=== PATIENT | female | born 1970 | race Caucasian/White ===

== ENCOUNTER 2022-12-15 07:07 | Outpatient (OUT) | payer BC, SELFPAY ==
[2022-12-15 08:33] LABS: Free T3 2.31 pg/mL (2.18-3.98); Glucose 85 mg/dL (74-106); Thyroid Stimulating Hormone 1.987 uIU/mL (0.358-3.740)
[2022-12-15 08:37] LABS: Estimated Average Glucose 91 mg/dL; Glycohemoglobin A1C 4.8 % (4.5-6.2)
[2022-12-15 12:33] LABS: Free T4 0.95 ng/dL (0.76-1.46)
[2022-12-16 04:07] LABS: Estradiol 35.8 pg/mL (.); Progesterone 0.2 ng/mL (.); Sex Horm Binding Glob, Serum 67.5 nmol/L (17.3-125.0)
[2022-12-16 11:09] LABS: C-Peptide, Serum 1.4 ng/mL (1.1-4.4)
[2022-12-16 15:07] LABS: Thyroglobulin Antibody <1.0 IU/mL (0.0-0.9); Thyroid Peroxidase (TPO) Ab <9 IU/mL (0-34)
[2022-12-17 15:10] LABS: Estrone, Serum 172 pg/mL (.)
[2022-12-18 07:09] LABS: Serotonin, Serum 7 ng/mL (31-207)
[2022-12-20 04:06] LABS: Free Testosterone(Direct) 3.3 pg/mL (0.0-4.2); Testosterone 34 ng/dL (4-50)
[2022-12-21 18:07] LABS: Cortisol, Free Dialysis, LCMS 1.11 ug/dL (.)
[2022-12-23 02:10] LABS: Reverse T3, Serum 17.3 ng/dL (9.2-24.1)
== END 2022-12-15 07:08 | disposition home or self-care (01) ==
LOC: LAB 07:11
PROVIDERS: PCP Family Medicine; Visit Provider Obstetrics & Gynecology
DX: E34.9 Endocrine disorder, unspecified (principal)
CPT/HCPCS: 36415; 82306; 82530; 82627; 82670; 82679; 82728; 82947; 83036; 83525; 84144; 84260; 84270; 84402; 84403; 84436; 84439; 84443; 84481; 84482; 84681; 86376; 86800

== ENCOUNTER 2022-12-27 07:34 | Outpatient (OUT) | payer BC, SELFPAY ==
--- NOTE | 2022-12-27 07:37 | MM_ITS ---
Patient Name: EFRAIN GEORGE MR#: [id number] : 1970 Exam Date: 12/27/2022 Ordering Doctor: DR Randy Martins . RADIOLOGY REPORT PROCEDURE: MM TOMOSYNTHESIS SCREENING BI COMPARISON: MG MAMM SCREEN 3D LETITIA CAD, 12/23/2021. MG MAMM SCREEN 3D LETITIA CAD, 12/17/2020. MG MAMM SCREEN LETITIA W CAD, 12/07/2019. MG MAMM LETITIA SCRN W CAD DIG, 01/05/2008. INDICATIONS: Screening Calculator Name NCI Breast Cancer Risk Assessment Tool 5 Year Breast Cancer Risk 1.10% Lifetime Breast Cancer Risk 9.90% Personal Breast Cancer No Personal Ovarian Cancer No Treatments None Family Cancers None LOCATION: [facility] BREAST COMPOSITION: Heterogeneously dense,which may obscure small masses. FINDINGS: DIAGNOSTIC CATEGORY 1--NEGATIVE. RIGHT BREAST: No significant suspicious finding. No significant change has occurred. LEFT BREAST: No significant suspicious finding. No significant change has occurred. RECOMMENDATIONS: ROUTINE MAMMOGRAM AND CLINICAL EVALUATION IN 12 MONTHS. PLEASE NOTE: A NORMAL MAMMOGRAM DOES NOT EXCLUDE THE POSSIBILITY OF BREAST CANCER. A CLINICALLY SUSPICIOUS PALPABLE LUMP SHOULD BE BIOPSIED. Dictated by: Jack Delatorre M.D. on 12/28/2022 at 11:23 Approved by: Jack Delatorre M.D. on 12/28/2022 at 11:26
--- OUTSIDE RECORDS SUMMARY | 2023-02-01 17:34 | XMS_ITS | CCD ---
Author Name Unknown Address [address] [facility] [address] [place] [address] Organization [facility] Care Team Providers Care Games Dealer Name Role Phone FRANCHESKA Unavailable Unavailable ELEN ., DR TREVINO Admitting Unavailable ELEN ., DR TREVINO Attending Unavailable SOUMYA, DR CADET Primary Care Unavailable ELEN ., DR TREVINO Consulting Unavailable ELEN ., DR TREVINO Admitting Unavailable ELEN ., DR TREVINO Attending Unavailable [place], DR TRESA Anand Consulting Unavailable SOUMYA, DR CADET Primary Care Unavailable ELEN ., DR TREVINO Consulting Unavailable ELEN ., DR TREVINO Consulting Unavailable ELEN ., DR TREVINO Admitting Unavailable SOUMYA, DR CADET Primary Care Unavailable ELEN ., DR TREVINO Attending Unavailable Allergies Allergy Classification Reported Allergen(s) Allergy Type Date of Onset Reaction(s) Facility (1 source) Sulfonamides (Antibiotic); Translations: [SULFA (SULFONAMIDE ANTIBIOTICS)] Propensity to adverse reactions to drug (disorder) [address] [facility] Other [place] [facility] (1 source) Sulfonamides (Antibiotic) Drug allergy (disorder) 4 [facility] Repository Problems Active Problems Problem Classification Problem Date Documented Date Episodic/Chronic Cancer of other female genital organs (1 source) Atypical squamous cells of undetermined significance on cytologic smear of vagina (ASC-US); Translations: [Atypical squamous cells of undetermined significance on cytologic smear of vagina (ASC-US)] Onset: 01-25-2018 Episodic Immunizations and screening for infectious disease (1 source) Encounter for screening for human papillomavirus (HPV); Translations: [ENC SCREENING HUMAN PAPILLOMAVIRUS] Onset: 03-23-2022 Episodic Other screening for suspected conditions (not mental disorders or infectious disease) (8 sources) Encounter for screening for malignant neoplasm of cervix; Translations: [Encounter for screening mammogram for malignant neoplasm of breast] Onset: 12-23-2021 Episodic Sexually transmitted infections (not HIV or hepatitis) (1 source) Vaginal high risk human papillomavirus (HPV) DNA test positive; Translations: [Vaginal high risk human papillomavirus (HPV) DNA test positive] Onset: 01-25-2018 Episodic Past or Other Problems Problem Classification Problem Date Documented Da te Episodic/Chronic Malaise and fatigue (4 sources) Other fatigue; Translations: [OTHER FATIGUE] Onset: 07-16-2021 Episodic Results Test Name Value Interpretation Reference Range Facil ity PAP ACOG PANEL 2: 30 to 65on 03-29-2022 . . Normal [facility]spital Comment on above: Result Comment: Perf ormed at: WB Performed By: #### C BC #### [facility] [address] [address] [address] David Cutler Age Gdln ACOG Testing 30-65 Normal [facility] Comment on above: Performed By: #### C BC #### [facility] [address] [address] [address] David Cutler DIAGNOSIS: Comment Normal [facility] Comment on above: Result Comment: NEGA TIVE FOR INTRAEPITHELIAL LESION OR MALIGNANCY. Performed at: WB Performed By: #### C BC #### [facility] [address] [address] [address] David Cutler HPV Aptima Negative Normal Negative [facility] Comment on above: Result Comment: This nucleic acid amplification test detects fourteen high-risk HPV types (16,18,31,33,35,39,45,51,52,56,58,59,66,68) without differentiation. Performed at: =G Performed By: #### C BC #### [facility] [id number] David Cutler HPV Genotype Reflex Comment Normal [facility] Comment on above: Result Comment: Crit eria not met, HPV Genotype not performed. Performed at: WB Performed By: #### C BC #### [facility] [address] [address] [address] David Cutler Methodology: Comment Normal [facility] Comment on above: Result Comment: This liquid based ThinPrep(R) pap test was screened with the use of an image guided system. Performed at: WB Performed By: #### C BC #### [facility] [address] [address] [address] David Cutler Note: Comment Normal [facility] Comment on above: Result Comment: The Pap smear is a screening test designed to aid in the detection of premalignant and malignant conditions of the uterine cervix. It is not a diagnostic procedure and should not be used as the sole means of detecting cervical cancer. Both false-positive and false-negative reports do occur. . Performed at: WB Performed By: #### C BC #### [facility] [address] [address] [address] David Cutler Performed by: Comment Normal [facility] Comment on above: Result Comment: Mayte Deluna, Yard Driver (ASCP) Performed at: WB Performed By: #### C BC #### [facility] [address] [address] [address] David Cutler Specimen adequacy: Comment Normal [facility] Comment on above: Result Comment: Sati sfactory for evaluation. No endocervical component is identified. Performed at: WB Performed By: #### C BC #### [facility] [address] [place] [address] Dr. David Cutler MG MAMM SCREEN 3D LETITIA CADon 12-23-2021 MG MAMM SCREEN 3D LETITIA CAD Patient: MILDRED LUJAN Exam Date: 12/23/2021 : 1970 Gender:F Ordering : DR URIEL MARTINS . Admission #: [id number] Family : Order #: [id number] CLICK HERE TO VIEW EXAM RADIOLOGY REPORT PROCEDURE: MAMMOGRAM SCREENING 3D BILATERAL CAD COMPARISON: MG MAMM SCREEN LETITIA W CAD, 12/07/2019. MG MAMM SCREEN 3D LETITIA CAD, 12/17/2020. INDICATIONS: Screening mammography Calculator Name NCI Breast Cancer Risk Assessment Tool 5 Year Breast Cancer Risk 1.00% Lifetime Breast Cancer Risk 10.00% Personal Breast Cancer No Personal Ovarian Cancer No Treatments None Family Cancers None [facility] BREAST COMPOSITION: Heterogeneously dense,which may obscure small masses. FINDINGS: DIAGNOSTIC CATEGORY 1--NEGATIVE. NO CHANGE FROM COMPARISON ASSESSMENT. RIGHT BREAST: No significant suspicious finding. LEFT BREAST: No significant suspicious finding. Stable focal asymmetry upper outer quadrant, mid to posterior breast RECOMMENDATIONS: ROUTINE MAMMOGRAM AND CLINICAL EVALUATION IN 12 MONTHS. PLEASE NOTE: A NORMAL MAMMOGRAM DOES NOT EXCLUDE THE POSSIBILITY OF BREAST CANCER. A CLINICALLY SUSPICIOUS PALPABLE LUMP SHOULD BE BIOPSIED. Dictated by: Tresa Garrett MD on 12/23/2021 at 10:33 Approved by: Tresa Garrett MD on 12/23/2021 at 10:35 Normal The [facility] l ESTRADIOLon 07-17-2021 Estradiol 58.3 pg/mL Normal [facility] Comment on above: Result Comment: Adul t Female: Follicular phase 12.5 - 166.0 Ovulation phase 85.8 - 498.0 Luteal phase 43.8 - 211.0 Postmenopausal <6.0 - 54.7 1st trimester 215.0 - >4300.0 Marie ECLIA methodology Performed By: #### E STRADI #### [facility] [address] [place] [address] Dr. David Cutler PROGESTERONEon 07-17-2021 Progesterone 0.1 ng/mL Normal [facility] Comment on above: Result Comment: Foll icular phase 0.1 - 0.9 Luteal phase 1.8 - 23.9 Ovulation phase 0.1 - 12.0 First trimester 11.0 - 44.3 Second trimester 25.4 - 83.3 Third trimester 58.7 - 214.0 Postmenopausal 0.0 - 0.1 Performed By: #### P SHANELL #### [facility] [address] [place] [address] Dr. David Cutler CBC AUTO DIFFon 07-16-2021 BASO # 0.0 103/ul Normal 0.0-0.1 [facility] Comment on above: Performed By: #### C BC #### [facility] [address] [place] [address] Dr. David Cutler Basophils/100 WBC (Bld) 0.9 % Normal 0.2-2.0 [facility] Comment on above: Performed By: #### C BC #### [facility] [address] [place] [address] Dr. David Cutler EO # 0.1 103/ul Normal 0.0-0.7 [facility] Comment on above: Performed By: #### C BC #### [facility] [address] [place] [address] Dr. David Cutler Eosinophils/100 WBC (Bld) 2.8 % Normal 0.9-7.0 [facility] Comment on above: Performed By: #### C BC #### [facility] [address] [place] [address] Dr. David Cutler Erythrocyte distribution wid th (RBC) [Ratio] 13.0 % Normal 11.0-15.0 [facility] Comment on above: Performed By: #### C BC #### [facility] [address] [place] [address] Dr. David Cutler Hematocrit (Bld) [Volume fraction] 41.7 % Normal 3 6.0-48.0 [facility] Comment on above: Performed By: #### C BC #### [facility] [address] [place] [address] Dr. David Cutler Hemoglobin (Bld) [Mass/Vol] 14.0 g/dL Normal 12.0-16. 0 [facility] Comment on above: Performed By: #### C BC #### [facility] [address] [place] [address] Dr. David Cutler IG # 0.00 10e3/ul Normal 0.00-0.03 [facility] Comment on above: Performed By: #### C BC #### [facility] [address] [place] [address] Dr. David Cutler IG % 0.0 % Normal 0.0-0.5 [facility] Comment on above: Performed By: #### C BC #### [facility] [address] [place] [address] Dr. David Cutler LYMPH # 2.1 103/ul Normal 1.2-3.8 [facility] Comment on above: Performed By: #### C BC #### [facility] [address] [place] [address] Dr. David Cutler Lymphocytes/100 WBC (Bld) 49.6 % Normal 20.5-60.0 [facility] Comment on above: Performed By: #### C BC #### [facility] [address] [place] [address] Dr. David Cutler MANUAL DIFF REQ NO Normal [facility] Comment on above: Performed By: #### C BC #### [facility] [address] [place] [address] Dr. David Cutler MCH (RBC) [Entitic mass] 31.0 pg Normal 26.7-34.0 [facility] Comment on above: Performed By: #### C BC #### [facility] [address] [place] [address] Dr. David Cutler MCHC (RBC) [Mass/Vol] 33.6 g/dL Normal 29.9-35.2 [facility] Comment on above: Performed By: #### C BC #### [facility] [address] [place] [address] Dr. David Cutler MCV (RBC) [Entitic vol] 92.5 fL Normal 81.0-99.0 [facility] Comment on above: Performed By: #### C BC #### [facility] [address] [place] [address] Dr. David Cutler MONO # 0.5 103/ul Normal 0.3-0.8 [facility] Comment on above: Performed By: #### C BC #### [facility] [address] [place] [address] Dr. David Cutler Monocytes/100 WBC (Bld) 11.1 % Normal 1.7-12.0 [facility] Comment on above: Performed By: #### C BC #### [facility] [address] [place] [address] Dr. David Cutler NEUT # 1.5 103/ul Normal 1.4-6.5 [facility] Comment on above: Performed By: #### C BC #### [facility] [address] [address] [address] David Cutler Neutrophils/100 WBC (Bld) 35.6 % Critically low 43.0-7 5.0 [facility] Comment on above: Performed By: #### C BC #### [facility] [address] [place] [address] Dr. David Cutler Platelet mean volume (Bld) [ Entitic vol] 10.0 fL Normal 9.5-13.5 [facility] pital Comment on above: Performed By: #### C BC #### [facility] [address] [place] [address] Dr. David Cutler PLT 226 103/ul Normal 150-450 [facility] Comment on above: Performed By: #### C BC #### [facility] [address] [place] [address] Dr. David Cutler RBC 4.51 106/ul Normal 4.20-5.40 [facility] Comment on above: Performed By: #### C BC #### [facility] [address] [place] [address] Dr. David Cutler WBC 4.3 103/ul Normal 4.0-11.0 [facility] Comment on above: Performed By: #### C BC #### [facility] [address] [place] [address] Dr. David Cutler FREE T4on 07-16-2021 Free T4 [Mass/Vol] 1.07 ng/dL Normal 0.76-1.46 [facility] Comment on above: Performed By: #### F T4, VITAD, VITB12 #### [facility] [address] [place] [address] Dr. David Cutler LIPID PROFILEon 07-16-2021 CHOL-HDL RATIO NORM SEE BELOW Normal [facility] Comment on above: Result Comment: 3.3 - 4.4 LOW RISK 4.4 - 7.1 AVERAGE RISK 7.1 - 11.0 MODERATE RISK >11.0 HIGH RISK Performed By: #### C MP, TSH, LIPID #### [facility] [address] [address] [address] David Cutler Cholesterol [Mass/Vol] 172 mg/dL Normal <=[address] [facility] Comment on above: Performed By: #### C MP, TSH, LIPID #### [facility] [address] [address] [address] David Cutler Cholesterol in HDL [Mass/Vol] 77 mg/dL Critically high 4 0-60 [facility] Comment on above: Performed By: #### C MP, TSH, LIPID #### [facility] [address] [address] [address] David Cutler Cholesterol in LDL [Mass/Vol] 85.2 mg/dL Normal [facility] Comment on above: Performed By: #### C MP, TSH, LIPID #### [facility] [address] [address] [address] David Cutler Cholesterol.total/Cholestero l in HDL [Mass ratio] 2.2 {ratio} Normal [facility] Comment on above: Performed By: #### C MP, TSH, LIPID #### [facility] [address] [address] [address] David Cutler HDL NORMAL > or = 60 mg/dl - LO W CARDIOVASCULAR RISK <40 mg/dl - HIGH CARDIOVASCULAR RISK Normal [facility] Comment on above: Performed By: #### C MP, TSH, LIPID #### [facility] [address] [address] [address] David Cutler LDL CALC NORMAL SEE BELOW Normal [facility] Comment on above: Result Comment: <100 mg/dl OPTIMAL 100 - 129 mg/dl NEAR OR ABOVE OPTIMAL 130 - 159 mg/dl BORDERLINE HIGH 160 - 189 mg/dl HIGH >190 mg/dl VERY HIGH Performed By: #### C MP, TSH, LIPID #### [facility] [address] [address] [address] David Cutler Triglyceride [Mass/Vol] 49 mg/dL Normal <=150 T [facility] Comment on above: Performed By: #### C MP, TSH, LIPID #### [facility] [address] [address] [address] David Cutler VLDL CALC 9.8 mg/dL Normal [facility] Comment on above: Performed By: #### C MP, TSH, LIPID #### [facility] [address] [place] [address] Dr. David Cutler PROF 14(COMP METB)on 022 Albumin [Mass/Vol] 3.7 g/dL Normal 3.4-5.0 [facility] Comment on above: Performed By: #### C MP, TSH, LIPID #### [facility] [address] [address] [address] David Cutler Albumin/Globulin [Mass ratio] 1.0 {ratio} Normal [facility] Comment on above: Performed By: #### C MP, TSH, LIPID #### [facility] [address] [place] [address] Dr. David Culter ALP [Catalytic activity/Vol] 67 U/L Normal 46-116 [facility] Comment on above: Performed By: #### C MP, TSH, LIPID #### [facility] [address] [place] [address] Dr. David Cutler ALT [Catalytic activity/Vol] 27 U/L Normal 14-59 [facility] Comment on above: Performed By: #### C MP, TSH, LIPID #### [facility] [address] [place] [address] Dr. David Cutler Anion gap [Moles/Vol] 9.6 mmol/L Normal [facility] Comment on above: Performed By: #### C MP, TSH, LIPID #### [facility] [address] [place] [address] Dr. David Cutler AST [Catalytic activity/Vol] 20 U/L Normal 15-37 [facility] Comment on above: Performed By: #### C MP, TSH, LIPID #### [facility] [address] [place] [address] Dr. David Cutler Bilirubin [Mass/Vol] 0.9 mg/dL Normal 0.2-1.0 [facility] Comment on above: Performed By: #### C MP, TSH, LIPID #### [facility] [address] [address] [address] David Cutler Calcium [Mass/Vol] 9.1 mg/dL Normal 8.5-10.1 [facility] Comment on above: Performed By: #### C MP, TSH, LIPID #### [facility] [address] [address] [address] David Cutler Chloride [Moles/Vol] 102 mmol/L Normal 98-107 [facility] Comment on above: Performed By: #### C MP, TSH, LIPID #### [facility] [address] [address] [address] David Cutler CO2 [Moles/Vol] 34.1 mmol/L Critically high 21.0-32.0 [facility] Comment on above: Performed By: #### C MP, TSH, LIPID #### [facility] [address] [place] [address] Dr. David Cutler Creatinine [Mass/Vol] 0.78 mg/dL Normal 0.55-1.02 [facility] Comment on above: Performed By: #### C MP, TSH, LIPID #### [facility] [address] [place] [address] Dr. David Cutler EGFR-AF ALBANIAN >60 Normal >=60 [facility] Comment on above: Performed By: #### C MP, TSH, LIPID #### [facility] [address] [place] [address] Dr. David Cutler EGFR-NON AF ALBANIAN >60 Normal >=60 [facility] Comment on above: Performed By: #### C MP, TSH, LIPID #### [facility] [address] [place] [address] Dr. David Cutler Globulin (S) [Mass/Vol] 3.7 g/dL Normal T [facility] Comment on above: Performed By: #### C MP, TSH, LIPID #### [facility] [address] [address] [address] David Cutler Glucose [Mass/Vol] 95 mg/dL Normal 74-106 [facility] Comment on above: Performed By: #### C MP, TSH, LIPID #### [facility] [address] [place] [address] Dr. David Cutler Potassium [Moles/Vol] 3.7 mmol/L Normal 3.5-5.1 [facility] Comment on above: Performed By: #### C MP, TSH, LIPID #### [facility] [address] [place] [address] Dr. David Cutler Protein [Mass/Vol] 7.4 g/dL Normal 6.4-8.2 [facility] Comment on above: Performed By: #### C MP, TSH, LIPID #### [facility] [address] [place] [address] Dr. David Cutler Sodium [Moles/Vol] 142 mmol/L Normal 136-145 [facility] Comment on above: Performed By: #### C MP, TSH, LIPID #### [facility] [address] [place] [address] Dr. David Cutler Urea nitrogen [Mass/Vol] 13.0 mg/dL Normal 7.0-18.0 [facility] Comment on above: Performed By: #### C MP, TSH, LIPID #### [facility] [address] [place] [address] Dr. David Cutler Urea nitrogen/Creatinine [Mass ratio] 16.7 mg/mg Normal [facility] Comment on above: Performed By: #### C MP, TSH, LIPID #### [facility] [address] [place] [address] Dr. David Cutler TSHon 07-16-2021 TSH 1.699 uIU/mL Normal 0.358-3.740 [facility] Comment on above: Performed By: #### C MP, TSH, LIPID #### [facility] [address] [place] [address] Dr. David Cutler TSH RANGE SEE BELOW Normal [facility] Comment on above: Result Comment: <0.3 4 UIU/ml HYPERTHYROID 0.34-5.60 UIU/ml EUTHYROID >5.60 UIU/ml HYPOTHYROID Performed By: #### C MP, TSH, LIPID #### [facility] [address] [address] [address] David Cutler VITAMIN B12on 07-16-2021 Cobalamin (Vitamin B12) [Mass/Vol] 632.0 pg/mL Normal 193.0-986.0 [facility] Comment on above: Performed By: #### F T4, VITAD, VITB12 #### [facility] [address] [address] [address] David Cutler VITAMIN D 25 OHon 07-16-2021 VIT D 25-OH 44.1 ng/mL Normal [facility] Comment on above: Performed By: #### F T4, VITAD, VITB12 #### [facility] [address] [address] [address] David Cutler VIT D RANGES SEE BELOW Normal [facility] Comment on above: Result Comment: <20 ng/mL Vit D deficient 20 - <30 ng/mL Vit D insufficient 30 - 100 ng/mL Vit D sufficient >100 ng/mL Potential Toxicity Performed By: #### F T4, VITAD, VITB12 #### [facility] [address] [place] [address] Dr. David Cutler PROGRESSon 03-07-2019 PROGRESS HNO ID: [id number] Author: Lashell Garcia Service: ? Author Type: Nurse Practitioner Type: Progress Notes Filed: 03/07/2019 2:55 PM Note Text: DATE: March 07, 2019 REASON FOR TELEVISIT: Pap result A. VAGINAL VAULT,SCREENING, FLUID Satisfactory for interpretation. Limited cellularity. Negative for intraepithelial lesion or malignancy. Predominance of coccobacilli consistent with shift in vaginal darvin. Negative for HPV DNA high risk type 16 by PCR. Negative for HPV DNA high risk type 18 by PCR. Positive for one or more of the following HPV DNA high risk types: 31,33,35,39,45,51,52,56,58,59,66,68 by PCR(*) ASSESSMENT: 48 year old yo female with a h/o dysplasia - Normal cytology pap with +HPV PLAN: - Reviewed results in detail with patient. - Referred back to her striper spray gun for continued cervical screening, routine ESOL TEACHER care. - Pt verbalized an understanding and agreed with the plan. - Instructed to call if she has any questions or concerns. Lashell Garcia APRN.MANUFACTURING COST ESTIMATOR CC: Francheska Freedman MD, MPH Normal [facility] CNOVSPon 03-02-2019 CNOVSP Visit (SP) Office ([address]) MILDRED LUJAN ([id number]) 1970 F Date Time Provider Department 03/02/19 9:20 AM FRANCHESKA FREEDMAN During your visit today, we recorded the following information about you: Temperature Pulse Respiration Blood pressure 98.1 degrees 66/minute 16/minute 132/76 Weight Height 69.8 kg 1.702 m Francheska Freedman MD 03/04/2019 5:55 PM Signed Gynecologic Oncology [facility] Consultation Re: Dinorah A Le [facility]#: [id number] 08/18/2018 PROBLEM: Patient presents for follow up, ASCUS, HPV+ SUBJECTIVE/HPI: Ms Lujan is a 46 year old female with a past medical history of depression, anxiety, HPV+, hx of abnormal paps, s/p TLH bilateral salpingectomy 07/2014 in setting of menorrhagia and failed ablation. Final pathology negative. She presented to [facility] for evaluation and management of LGSIL pap 11/23/2016, HPV negative Pap/bx hx: 06/2013 ASCUS, HPV negative 08/2015 ASCUS, HPV positive/intermediate 09/2015 colpo negative, no bx 03/2016 LSIL. 04/2016 colpo negative, no bx 11/2016 LSIL, HPV negative 07/01 ASCUS HPV negative 08/2018 Pap normal PRIOR TREATMENT AND DATE: 1)07/2014 Hysterectomy, bilateral salpingectomy - pathology negative HEALTH MAINTENANCE: Last pap: 08/2018 normal pap Last mammogram: 10/2016 WNL per pt Last colonoscopy: Never Bernadette Cline RN SUBJECTIVE/INTERVAL HISTORY: Mildred Lujan reports that she feels well. No issues or concerns. She reports one episode of spotting. OBJECTIVE: BP 132/76 Pulse 66 Temp 36.7 ?C (98.1 ?F) (Oral) Resp 16 Ht 170.2 cm (5' 7.01 ) Wt 69.8 kg (153 lb 12.8 oz) SpO2 100% BMI 24.08 kg/m? GENERAL: alert, oriented, pleasant and cooperative. HEENT: Normocephalic, atraumatic, mucus membranes moist and no lesions. LUNGS: Normal efforts PELVIC: External genitalia, anus and urethral meatus are normal in appearance and without lesions. Vagina and cuff are normal in appearance on speculum examination. LOWER EXTREMITIES: No pitting edema, no palpable cords and no skin changes . 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 [facility]ins CC: Malcom Sloan MD (PCP) Referring Provider: FRANCHESKA FREEDMAN [[id number]] Allergies As of Date: 03/02/2019 Noted Allergy Reaction SULFA (SULFONAMIDE ANTIBIOTICS) 12/09/2016 5 - Intolerance Date Reviewed: 03/02/2019 Reviewed by: Bobbi Rueda - Fully Assessed Reason for Visit: atypical squamous cell (ASCUS) [Other] Cmt: 6 month follow up Reason For Visit History Recorded Primary Visit Diagnosis:Atypical squamous cell changes of undetermined significance (ASCUS) on vaginal cytology with positive high risk human papilloma virus (HPV) [R87.620, R87.811] Order(s):PAP FLUID VAGINAL VAULT SCREENING [[id number]] Order #: [id number] Disposition: Return if symptoms worsen or fail to improve. Follow-up and Disposition History Recorded Prescriptions as of 03/02/2019 Sig: ONE-A-DAY WOMEN'S ACTIVE ORAL Take by mouth. CLARITIN ORAL Take by mouth. CALCIUM + D ORAL Take by mouth. CITALOPRAM 40 MG TABLET Take 40 mg by mouth once andres* BUPROPION HCL SR 100 MG TABLE* Take 100 mg by mouth daily at* BUPROPION HCL SR 150 MG TABLE* Take 150 mg by mouth every mo* Problem List As Of Date: 03/02/2019 (None) Encounter Status:Closed by FRANCHESKA FREEDMAN MD on 03/04/19 Normal [facility] CYTOLOGYon 03-02-2019 CYTOLOGY ADDITIONAL PROCEDURES PRESENT Specimen originated from [facility] Specimen #: [id number] Submitting Physician: FRANCHESKA FREEDMAN MD SPECIMEN SUBMITTED A: VAGINAL VAULT,SCREENING, FLUID FINAL DIAGNOSIS A. VAGINAL VAULT,SCREENING, FLUID Satisfactory for interpretation. Limited cellularity. Negative for intraepithelial lesion or malignancy. Predominance of coccobacilli consistent with shift in vaginal darvin. This specimen has been analyzed by the ThinPrep Imaging System, an automated imaging and review system, which assists the laboratory in evaluating cells on ThinPrep Pap tests. Following automated imaging, selected cha from every slide are reviewed by a metal furniture panel coverer. CAROLA Jaimes(ASCP) (Electronic Signature) ADDITIONAL PROCEDURE(S) HUMAN PAPILLOMA VIRUS Date Ordered: 03/05/2019 Date Reported: 03/06/2019 Procedure Results and Interpretation Negative for HPV DNA high risk type 16 by PCR. Negative for HPV DNA high risk type 18 by PCR. Positive for one or more of the following HPV DNA high risk types: 31,33,35,39,45,51,52,56,58,59,66,68 by PCR(*) This test was developed and its performance characteristics determined by [facility] [place] ([facility]). It has not been cleared or approved by the FDA. -[facility] is regulated under CLIA as qualified to perform high-complexity testing. This test is used for clinical purposes. It should not be regarded as investigational or for research. CLINICAL DATA HYSTERECTOMY TOTAL, HPV Testing: Yes, automatic HPV patients over 30 Date of Last Menstrual Period: Hysterectomy STAINS A: VAGINAL VAULT,SCREENING, FLUID THIN PREP ESOL TEACHER Jerardo Ladd M.D., Kitchen Worker Date of Report: 03/07/2019 Date of Procedure: 03/02/2019 Date of Receipt: 03/05/2019 Submitted by: FRANCHESKA FREEDMAN MD Location: [place] Diagnostic interpretation performed at [facility], [address] [place] [address]. CLIA Number: [id number] The Pap Smear is a screening test for cervical cancer. False negative results occur with all screening tests, emphasizing the need for rescreening at recommended intervals, and clinical correlation. Normal [facility] HPV w/Genotypeon 03-02-2019 HPV HighRisk Other Positive for one or more of the following HPV DNA high risk types: 31,33,35,39,45,51,52,56,58,59,66,68 by PCR Critically abnormal [facility] Comment on above: Result Comment: This test was developed and its performance characteristics determined by [facility] [place] ([facility]). It has not been cleared or approved by the FDA. [facility] is regulated under CLIA as qualified to perform high-complexity testing. This test is used for clinical purposes. It should not be regarded as investigational or for research. Performed By: #### H PVHRR #### [place] [address] [address] [address] HPV HighRisk Type 16 Negative Normal [facility] Comment on above: Performed By: #### H PVHRR #### [facility] [address] [place], [place] [address] HPV HighRisk Type 18 Negative Normal [facility] Comment on above: Performed By: #### H PVHRR #### [facility] [address] [place], [place] [address] PROGRESSon 03-02-2019 PROGRESS HNO ID: [id number] Author: Francheska Freedman Service: ? Author Type: Physician Type: Progress Notes Filed: 03/04/2019 5:55 PM Note Text: Gynecologic Oncology [facility] Consultation Re: Dinorah Lujan CCF#: [id number] 08/18/2018 PROBLEM: Patient presents for follow up, ASCUS, HPV+ SUBJECTIVE/HPI: Ms Lujan is a 46 year old female with a past medical history of depression, anxiety, HPV+, hx of abnormal paps, s/p TLH bilateral salpingectomy 07/2014 in setting of menorrhagia and failed ablation. Final pathology negative. She presented to [facility] for evaluation and management of LGSIL pap 11/23/2016, HPV negative Pap/bx hx: 06/2013 ASCUS, HPV negative 08/2015 ASCUS, HPV positive/intermediate 09/2015 colpo negative, no bx 03/2016 LSIL. 04/2016 colpo negative, no bx 11/2016 LSIL, HPV negative 07/01 ASCUS HPV negative 08/2018 Pap normal PRIOR TREATMENT AND DATE: 1)07/2014 Hysterectomy, bilateral salpingectomy - pathology negative HEALTH MAINTENANCE: Last pap: 08/2018 normal pap Last mammogram: 10/2016 WNL per pt Last colonoscopy: Never Bernadette Cline RN SUBJECTIVE/INTERVAL HISTORY: Mildred Lujan reports that she feels well. No issues or concerns. She reports one episode of spotting. OBJECTIVE: BP 132/76 Pulse 66 Temp 36.7 ?C (98.1 ?F) (Oral) Resp 16 Ht 170.2 cm (5' 7.01 ) Wt 69.8 kg (153 lb 12.8 oz) SpO2 100% BMI 24.08 kg/m? GENERAL: alert, oriented, pleasant and cooperative. HEENT: Normocephalic, atraumatic, mucus membranes moist and no lesions. LUNGS: Normal efforts PELVIC: External genitalia, anus and urethral meatus are normal in appearance and without lesions. Vagina and cuff are normal in appearance on speculum examination. LOWER EXTREMITIES: No pitting edema, no palpable cords and no skin changes . 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 Martins CC: Malcom Sloan MD (PCP) Normal [facility] CYTOLOGYon 08-19-2018 CYTOLOGY Specimen originated from [facility] Specimen #: [id number] Submitting Physician: FRANCHESKA FREEDMAN MD SPECIMEN SUBMITTED A: VAGINAL VAULT,SCREENING, FLUID FINAL DIAGNOSIS A. VAGINAL VAULT,SCREENING, FLUID Satisfactory for interpretation. Negative for intraepithelial lesion or malignancy. Predominance of coccobacilli consistent with shift in vaginal darvin. This specimen has been analyzed by the ThinPrep Imaging System, an automated imaging and review system, which assists the laboratory in evaluating cells on ThinPrep Pap tests. Following automated imaging, selected cha from every slide are reviewed by a metal furniture panel coverer. CAROLA Pelletier(ASCP) (Electronic Signature) CLINICAL DATA ROUTINE EXAM, HPV Testing: No HPV test Date of Last Menstrual Period: Hysterectomy STAINS A: VAGINAL VAULT,SCREENING, FLUID THIN PREP ESOL TEACHER Jerardo Ladd M.D., Kitchen Worker Date of Report: 08/25/2018 Date of Procedure: 08/19/2018 Date of Receipt: 08/21/2018 Submitted by: FRANCHESKA FREEDMAN MD Location: [place] Diagnostic interpretation performed at [facility], [address] [place] [address]. [place] Number: [id number] The Pap Smear is a screening test for cervical cancer. False negative results occur with all screening tests, emphasizing the need for rescreening at recommended intervals, and clinical correlation. Normal [facility] CNOVSPon 08-18-2018 CNOVSP Visit (SP) Office ([address]) MILDRED LUJAN ([id number]) 1970 F Date Time Provider Department 08/18/18 10:40 AM FRANCHESKA FREEDMAN During your visit today, we recorded the following information about you: Temperature Pulse Respiration Blood pressure 98.3 degrees 74/minute 18/minute 116/69 Weight Height 71.7 kg 1.702 m Francheska Freedman MD 08/19/2018 11:15 AM Signed Gynecologic Oncology [facility] Consultation Re: Dinorah Martinez Le CCF#: [id number] 08/18/2018 PROBLEM: Patient presents for follow up, ASCUS, HPV+ SUBJECTIVE/HPI: Ms Lujan is a 46 year old female with a past medical history of depression, anxiety, HPV+, hx of abnormal paps, s/p TLH bilateral salpingectomy 07/2014 in setting of menorrhagia and failed ablation. Final pathology negative. She presented to [facility] for evaluation and management of LGSIL pap 11/23/2016, HPV negative Pap/bx hx: 06/2013 ASCUS, HPV negative 08/2015 ASCUS, HPV positive/intermediate 09/2015 colpo negative, no bx 03/2016 LSIL. 04/2016 colpo negative, no bx 11/2016 LSIL, HPV negative 07/01 ASCUS HPV negative PRIOR TREATMENT AND DATE: 1)07/2014 Hysterectomy, bilateral salpingectomy - pathology negative HEALTH MAINTENANCE: Last pap: 12/30/2017 ASCUS, HPV+ Last mammogram: 10/2016 WNL per pt Last colonoscopy: Never Bernadette Cline RN SUBJECTIVE/INTERVAL HISTORY: Mildred Lujan reports that she feels well. No issues or concerns. She reports one episode of spotting. OBJECTIVE: BP 116/69 Pulse 74 Temp 36.8 ?C (98.3 ?F) (Oral) Resp 18 Ht 170.2 cm (5' 7.01 ) Wt 71.7 kg (158 lb) SpO2 98% BMI 24.74 kg/m? GENERAL: alert, oriented, pleasant and cooperative. HEENT: Normocephalic, atraumatic, mucus membranes moist and no lesions. LUNGS: Normal efforts PELVIC: External genitalia, anus and urethral meatus are normal in appearance and without lesions. Vagina and cuff are normal in appearance on speculum examination. LOWER EXTREMITIES: No pitting edema, no palpable cords and no skin changes . 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 Martins CC: Malcom Sloan MD (PCP) Referring Provider: SELF [[id number]] Allergies As of Date: 08/18/2018 Noted Allergy Reaction SULFA (SULFONAMIDE ANTIBIOTICS) 12/09/2016 5 - Intolerance Date Reviewed: 08/18/2018 Reviewed by: Martha Silva - Fully Assessed Reason for Visit: Vaginal Bleeding [203] Cmt: follow up Primary Visit Diagnosis:Atypical squamous cell changes of undetermined significance (ASCUS) on vaginal cytology with positive high risk human papilloma virus (HPV) [R87.620, R87.811] Order(s):PAP FLUID VAGINAL VAULT SCREENING [[id number]] Order #: [id number] Disposition: Return in about 6 months (around 02/18/2019). Follow-up and Disposition History Recorded Prescriptions as of 08/18/2018 Sig: BUPROPION HCL SR 150 MG TABLE* Take 150 mg by mouth every mo* ONE-A-DAY WOMEN'S ACTIVE ORAL Take by mouth. CLARITIN ORAL Take by mouth. CALCIUM + D ORAL Take by mouth. BUPROPION HCL SR 100 MG TABLE* Take 100 mg by mouth daily at* CITALOPRAM 40 MG TABLET Take 40 mg by mouth once andres* Problem List As Of Date: 08/18/2018 (None) Encounter Status:Closed by FRANCHESKA FREEDMAN MD on 08/19/18 Normal [facility] PROGRESSon 08-18-2018 PROGRESS HNO ID: [id number] Author: Francheska Freedman Service: ? Author Type: Physician Type: Progress Notes Filed: 08/19/2018 11:15 AM Note Text: Gynecologic Oncology [facility] Consultation Re: Dinorah Lujan CCF#: [id number] 08/18/2018 PROBLEM: Patient presents for follow up, ASCUS, HPV+ SUBJECTIVE/HPI: Ms Lujan is a 46 year old female with a past medical history of depression, anxiety, HPV+, hx of abnormal paps, s/p TLH bilateral salpingectomy 07/2014 in setting of menorrhagia and failed ablation. Final pathology negative. She presented to [facility] for evaluation and management of LGSIL pap 11/23/2016, HPV negative Pap/bx hx: 06/2013 ASCUS, HPV negative 08/2015 ASCUS, HPV positive/intermediate 09/2015 colpo negative, no bx 03/2016 LSIL. 04/2016 colpo negative, no bx 11/2016 LSIL, HPV negative 07/01 ASCUS HPV negative PRIOR TREATMENT AND DATE: 1)07/2014 Hysterectomy, bilateral salpingectomy - pathology negative HEALTH MAINTENANCE: Last pap: 12/30/2017 ASCUS, HPV+ Last mammogram: 10/2016 WNL per pt Last colonoscopy: Never Bernadette Cline RN SUBJECTIVE/INTERVAL HISTORY: Mildred Lujan reports that she feels well. No issues or concerns. She reports one episode of spotting. OBJECTIVE: BP 116/69 Pulse 74 Temp 36.8 ?C (98.3 ?F) (Oral) Resp 18 Ht 170.2 cm (5' 7.01 ) Wt 71.7 kg (158 lb) SpO2 98% BMI 24.74 kg/m? GENERAL: alert, oriented, pleasant and cooperative. HEENT: Normocephalic, atraumatic, mucus membranes moist and no lesions. LUNGS: Normal efforts PELVIC: External genitalia, anus and urethral meatus are normal in appearance and without lesions. Vagina and cuff are normal in appearance on speculum examination. LOWER EXTREMITIES: No pitting edema, no palpable cords and no skin changes . 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 Martins CC: Malcom Sloan MD (PCP) Normal [facility] CNOVon 01-25-2018 CNOV Office Visit (GYNML) -------MILDRED LUJAN ([id number]) 1970 [facility] Time Provider Cqboqjylqh64/12/18 9:30 AM FRANCHESKA FREEDMAN GYNML During your visit today, we recorded the following information about you: Temperature Pulse Blood pressure Weight 98.2 degrees 76/minute 132/72 70.3 kgFrancheska Freedman MD 01/25/2018 10:15 AM SignedGynecologic OncologyAshtabula County Medical CenterConsultationRe: Dinorah Martinez [facility]CASE[facility] [id number]/12/2018PROBLEM: Patient presents for follow up, ASCUS, HPV+SUBJECTIVE/HPI: Ms Lujan is a 46 year old female with a pastmedical history of depression, anxiety, HPV+, hx of abnormal paps, s/p TLHbilateral salpingectomy 07/2014 in setting of menorrhagia and failed ablation.Final pathology negative. She presented to [facility] for evaluation andmanagement of LGSIL pap 11/23/2016, HPV negativePap/bx hx:06/2013 ASCUS, HPV negative08/2015 ASCUS, HPV positive/intermediate09/2015 colpo negative, no bx2 LSIL.04/2016 colpo negative, no bx11/2016 LSIL, HPV negative07/01 ASCUS HPV negativePRIOR TREATMENT AND DATE:1)07/2014 Hysterectomy, bilateral salpingectomy - pathology negativeHEALTH MAINTENANCE:Last pap: 12/30/2017 ASCUS, HPV+Last mammogram: 10/2016 WNL per ptLast colonoscopy: NeverAmy Marlyn, RNSUBJECTIVE/INTERVAL HISTORY: Mildred Lujan reports that she feels well.No vaginal bleeding or discharge.OBJECTIVE:BP 132/72 Pulse 76 Temp 36.8 ?C (98.2 ?F) (Oral) Wt 70.3 kg (155 lb) BMI 24.28 kg/m?GENERAL: alert, oriented, pleasant and cooperative.HEENT: Normocephalic, atraumatic, mucus membranes moist and no lesions.LUNGS: Normal effortsPELVIC: External genitalia, anus and urethral meatus are normal in appearanceand without lesions. Vagina and cuff are normal in appearance on speculumexamination.LOWER EXTREMITIES: No pitting edema, no palpable cords and no skin changesUNIVERSAL PROTOCOL / SAFETY CHECKLISTProcedure to be performed: ColposcopySign in Communication: CompletedTime Out: Team Confirms the Correct Patient, Correct Procedure, Correct Siteand Site Marking, Correct Position (if applicable). Time: 9:59 AMAffirmation of Time Out: YESUrine HCG: n/aPROCEDURE:EXTERNAL GENITALIA: Normal in appearance without lesionsVAGINA: Normal in appearance without lesions with no acetowhite lesion afterapplication of 5% acetic acidBIOPSY: Not doneHEMOSTASIS: ExcellentProcedure Summary: Patient tolerated procedure well and colposcopy was adequate.ASSESSMENT:47 yo women with low grade vaginal dysplasiaPLAN:- Exam and colponormal today- Pap and HPV next visit- RTC [facility] 6 [facility],Francheska Freedman MD, MPH25 min spent with the patient with >505 face to face counseling and carecoordinationA letter and a copy of this office note were sent to:Dr. Avery:Malcom Sloan MD (PCP)Referring Provider: SELF [200]Allergies As of Date: 01/25/2018 Noted Allergy ReactionSULFA (SULFONAMIDE ANTIBIOTICS) 12/09/2016 5 - IntoleranceDate Reviewed: 01/25/2018Reviewed by: Francheska Freedman - Fully AssessedReason for Visit: Establish Care [42]Primary Visit Diagnosis:Atypical squamous cell changes of undetermined significance (ASCUS) on vaginal cytology with positive high risk human papilloma virus (HPV) [R87.620, R87.811]Prescriptions as of 01/25/2018 Sig: CALCIUM + D ORAL Take by mouth. CITALOPRAM 40 MG TABLET Take 40 mg by mouth once andres* CLARITIN ORAL Take by mouth. ONE-A-DAY WOMEN'S ACTIVE ORAL Take by mouth.Problem List As Of Date: 01/25/2018(None) Status:Closed by FRANCHESKA FREEDMAN MD on 01/25/18 Normal [facility] PROGRESSon 01-19-2018 Protein mass conc HNO ID: [id number] thor: Francheska Rogerservice: (none)Author Type: PhysicianType: Progress NotesFiled: 01/25/2018 10:15 AMNote Text:Gynecologic OncologyAshtabula County Medical CenterConsultationRe: Dinorah LujanCASEY COUNTY HOS[facility]#: [id number]/12/2018PROBLEM: Patient presents for follow up, ASCUS, HPV+SUBJECTIVE/HPI: Ms Lujan is a 46 year old female with a pastmedical history of depression, anxiety, HPV+, hx of abnormal paps, s/p TLHbilateral salpingectomy 07/2014 in setting of menorrhagia and failedablation. Final pathology negative. She presented to [facility] forevaluation and management of LGSIL pap 11/23/2016, HPV negativePap/bx hx:06/2013 ASCUS, HPV negative08/2015 ASCUS, HPV positive/intermediate09/2015 colpo negative, no bx03/2016 LSIL.04/2016 colpo negative, no bx11/2016 LSIL, HPV negative07/01 ASCUS HPV negativePRIOR TREATMENT AND DATE:1)07/2014 Hysterectomy, bilateral salpingectomy - pathology negativeHEALTH MAINTENANCE:Last pap: 12/30/2017 ASCUS, HPV+Last mammogram: 10/2016 WNL per ptLast colonoscopy: NeverAmy Rufe, RNSUBJECTIVE/INTERVAL HISTORY: Mildred Lujan reports that she feelswell. No vaginal bleeding or discharge.OBJECTIVE:BP 132/72 Pulse 76 Temp 36.8 ?C (98.2 ?F) (Oral) Wt 70.3 kg (155lb) BMI 24.28 kg/m?GENERAL: alert, oriented, pleasant and cooperative.HEENT: Normocephalic, atraumatic, mucus membranes moist and no lesions.LUNGS: Normal effortsPELVIC: External genitalia, anus and urethral meatus are normal inappearance and without lesions. Vagina and cuff are normal in appearanceon speculum examination.LOWER EXTREMITIES: No pitting edema, no palpable cords and no skin changesUNIVERSAL PROTOCOL / SAFETY CHECKLISTProcedure to be performed: ColposcopySign in Communication: CompletedTime Out: Team Confirms the Correct Patient, Correct Procedure, CorrectSite and Site Marking, Correct Position (if applicable). Time: 9:59 AMAffirmation of Time Out: YESUrine HCG: n/aPROCEDURE:EXTERNAL GENITALIA: Normal in appearance without lesionsVAGINA: Normal in appearance without lesions with no acetowhite lesionafter application of 5% acetic acidBIOPSY: Not doneHEMOSTASIS: ExcellentProcedure Summary: Patient tolerated procedure well and colposcopy wasadequate.ASSESSMENT:47 yo women with low grade vaginal dysplasiaPLAN:- Exam and colponormal today- Pap and HPV next visit- RTC in [address] [place] [address],Francheska Freedman MD, MPH25 min spent with the patient with >505 face to face counseling and carecoordinationA letter and a copy of this office note were sent to:Dr. ParikhoCC:Malcom Sloan MD (PCP) [facility] Encounters Encounter Date Encounter Type Care Provider Facility Start: 03-22-2022 End: 03-22-[address] URIEL MARTINS . Facility: Start: 12-23-2021 End: 12-24-[address] URIEL MARTINS . Facility:[facility] Start: 07-16-2021 End: 07-17-[address] URIEL MARTINS . Facility: Start: 01-25-2018 End: 01-25-2018 Patient encounter procedure FRANCHESKA FREEDMAN [facility] Payers Date Payer Category Payer Unknown [id number] [id number] 1970 Unknown [id number] [id number] 1970 Unknown [id number] [id number] 1957 Unknown [id number] Summary Purpose Family History No Family History Records FoundNo Family History Records FoundNo Family History Records Found Advance Directives No Advanced Directives Records FoundNo Advanced Directives Records FoundNo Advanced Directives Records Found Additional Source Comments INFORMATION SOURCE (unrecogn ized section and content) DATE CREATED AUTHOR 01/28/2018 [facility] DATE CREATED AUTHOR AUTHOR'S ORGANIZ ATION 03/07/2019 [facility] DATE CREATED AUTHOR AUTHOR'S ORGANIZ ATION 05/04/2022 [facility] FOR RECORDS PERTAINING TO PATIENTS WHO ARE OR HAVE BEEN ENROLLED IN A CHEMICAL DEPENDENCY/SUBSTANCEABUSE PROGRAM, SOME INFORMATION MAY BE OMITTED. This clinical summary was aggregated from multiple sources. Caution should be exercised in using it in the provision of clinical care. This summary normalizes information from multiple sources, and as a consequence, information in this document may materially change the coding, format and clinical context of patient data. In addition, data may be omitted in some cases. CLINICAL DECISIONS SHOULD BE BASED ON THE PRIMARY CLINICAL RECORDS. [facility] [employer] provides no warranty or guarantee of the accuracy or completeness of information in this document.
== END 2022-12-27 07:35 | disposition home or self-care (01) ==
LOC: MAMMO 07:34
PROVIDERS: PCP Family Medicine; Visit Provider Obstetrics & Gynecology
DX: Z12.31 Encounter for screening mammogram for malignant neoplasm of breast (principal)
CPT/HCPCS: 77063; 77067

== ENCOUNTER 2023-03-24 19:59 | Outpatient (REF) | payer BC, SELFPAY ==
--- OUTSIDE RECORDS SUMMARY | 2023-03-24 20:03 | XMS_ITS | CCD ---
Author Name Unknown Address [address] [place] [address] Organization [facility] Care Team Providers Care Pulmonary Disease Specialist Name Role Phone FRANCHESKA Unavailable Unavailable ELEN ., DR TREVINO Admitting Unavailable ELEN ., DR TREVINO Attending Unavailable SOUMYA, DR CADET Primary Care Unavailable ELEN ., DR TREVINO Consulting Unavailable ELEN ., DR TREVINO Admitting Unavailable ELEN ., DR TREVINO Attending Unavailable DELLROY, DR TRESA Anand Consulting Unavailable SOUMYA, DR [...] to adverse reactions to drug (disorder) 7 [facility] Other [place] Repository (1 source) Sulfonamides (Antibiotic) Drug allergy (disorder) 4 [facility] Repository Problems Active Problems Problem Classification Problem [...] Results Test Name Value Interpretation Reference Range Facility PAP ACOG PANEL 2: 30 to 65on 03-29-2022 . . Normal [facility] Comment on above: Result Comment: Perf ormed at: WB Performed By: #### C BC #### [facility] [address] [address] [address] David Cutler Age Gdln ACOG Testing 30-65 Normal [facility] Comment on above: Performed By: #### C BC #### [facility] [address] [address] [address] David Cutler DIAGNOSIS: Comment [facility] Comment on above: Result Comment: NEGA TIVE FOR INTRAEPITHELIAL LESION OR MALIGNANCY. Performed at: WB Performed By: #### C BC #### [facility] [address] [address] [address] David Cutler HPV Aptima Negative Normal Negative [facility] Comment on above: Result Comment: This nucleic acid amplification test detects fourteen high-risk HPV types (16,18,31,33,35,39,45,51,52,56,58,59,66,68) without differentiation. Performed at: =G Performed By: #### C BC #### [facility] [address] [address] [address] David Cutler HPV Genotype Reflex Comment [facility] Comment on above: Result Comment: Crit eria not met, HPV Genotype not performed. Performed at: WB Performed By: #### C BC #### [facility] [address] [address] [address] David Cutler Methodology: Comment [facility] Comment on above: Result Comment: This liquid based ThinPrep(R) pap test was screened with the use of an image guided system. Performed at: WB Performed By: #### C BC #### [facility] [address] [place] [address] Dr. David Cutler Note: Comment Normal [facility] Comment on above: Result Comment: The Pap smear is a screening test designed to aid in the detection of premalignant and malignant conditions of the uterine cervix. It is not a diagnostic procedure and should not be used as the sole means of detecting cervical cancer. Both false-positive and false-negative reports do occur. . Performed at: WB Performed By: #### C BC #### [facility] [address] [address] [address] David Cutler Performed by: Comment Normal [facility] Comment on above: Result Comment: Mayte Deluna, Equipment Or Machinery Cleaner (ASCP) Performed at: WB Performed By: #### C BC #### [facility] [address] [place] [address] Dr. David Cutler Specimen adequacy: Comment Normal [facility] Comment on above: Result Comment: Sati sfactory for evaluation. No endocervical component is identified. Performed at: WB Performed By: #### C BC #### [facility] [address] [place] [address] Dr. David Cutler MG MAMM SCREEN 3D LETITIA CADon 12-23-2021 MG MAMM SCREEN 3D LETITIA CAD Patient: MILDRED LUJAN Exam Date: 12/23/2021 : 1970 Gender:F Ordering : DR URIEL MARTINS . Admission #: [id number] Family : Order #: [id number] CLICK HERE TO VIEW EXAM RADIOLOGY REPORT [...] Treatments None Family Cancers None LOCATION: [facility] BREAST COMPOSITION: Heterogeneously dense,which may obscure small [...] Garrett MD on 12/23/2021 at 10:35 Normal [facility] ESTRADIOLon 07-17-2021 Estradiol 58.3 pg/mL Normal [facility] Comment on above: Result Comment: Adul t Female: Follicular phase 12.5 - 166.0 Ovulation phase 85.8 - 498.0 Luteal phase 43.8 - 211.0 Postmenopausal <6.0 - 54.7 1st trimester 215.0 - >4300.0 Marie ECLIA methodology Performed By: #### E FABIAN #### [facility] [address] [place] [address] Dr. David Cutler PROGESTERONEon 07-17-2021 Progesterone 0.1 ng/mL Normal [facility] Comment on above: Result Comment: Foll icular phase 0.1 - 0.9 Luteal phase 1.8 - 23.9 Ovulation phase 0.1 - 12.0 First trimester 11.0 - 44.3 Second trimester 25.4 - 83.3 Third trimester 58.7 - 214.0 Postmenopausal 0.0 - 0.1 Performed By: #### P SHANELL #### [facility] [address] [place] [address] Dr. David Cutler CBC AUTO DIFFon 07-16-2021 BASO # 0.0 103/ul Normal 0.0-0.1 [facility] Comment on above: Performed By: #### C BC #### [facility] [address] [place] [address] Dr. David Cutler Basophils/100 WBC (Bld) 0.9 % Normal 0.2-2.0 [facility] Comment on above: Performed By: #### C BC #### [facility] [address] [place] [address] Dr. David Cutler EO # 0.1 103/ul Normal 0.0-0.7 [facility] Comment on above: Performed By: #### C BC #### [facility] [address] [place] [address] Dr. David Cutler Eosinophils/100 WBC (Bld) 2.8 % Normal 0.9-7.0 [facility] Comment on above: Performed By: #### C BC #### [facility] [address] [place] [address] Dr. David Cutler Erythrocyte distribution width (RBC) [Ratio] 13.0 % Normal 11.0-15.0 [facility] Comment on above: Performed By: #### C BC #### [facility] [address] [place] [address] Dr. David Cutler Hematocrit (Bld) [Volume fraction] 41.7 % Normal 36.0-48.0 [facility] Comment on above: Performed By: #### C BC #### [facility] [address] [place] [address] Dr. David Cutler Hemoglobin (Bld) [Mass/Vol] 14.0 g/dL Normal 12.0-16.0 [facility] Comment on above: Performed By: #### C BC #### [facility] [address] [place] [address] Dr. David Cutler IG # 0.00 10e3/ul Normal 0.00-0.03 [facility] Comment on above: Performed By: #### C BC #### [facility] [address] [place] [address] Dr. David Cutler IG % 0.0 % Normal 0.0-0.5 [facility] Comment on above: Performed By: #### C BC #### [facility] [address] [place] [address] Dr. David Cutler LYMPH # 2.1 103/ul Normal 1.2-3.8 [facility] Comment on above: Performed By: #### C BC #### [facility] [address] [place] [address] Dr. David Cutler Lymphocytes/100 WBC (Bld) 49.6 % Normal 20.5-60.0 [facility] Comment on above: Performed By: #### C BC #### [facility] [address] [place] [address] Dr. David Cutler MANUAL DIFF REQ NO Normal [facility] Comment on above: Performed By: #### C BC #### [facility] [address] [place] [address] Dr. David Cutler MCH (RBC) [Entitic mass] 31.0 pg Normal 26.7-34.0 [facility] Comment on above: Performed By: #### C BC #### [facility] [address] [place] [address] Dr. David Cutler MCHC (RBC) [Mass/Vol] 33.6 g/dL Normal 29.9-35.2 [facility] Comment on above: Performed By: #### C BC #### [facility] [address] [place] [address] Dr. David Cutler MCV (RBC) [Entitic vol] 92.5 fL Normal 81.0-99.0 [facility] Comment on above: Performed By: #### C BC #### [facility] [address] [place] [address] Dr. David Cutler MONO # 0.5 103/ul Normal 0.3-0.8 [facility] Comment on above: Performed By: #### C BC #### [facility] [address] [place] [address] Dr. David Cutler Monocytes/100 WBC (Bld) 11.1 % Normal 1.7-12.0 [facility] Comment on above: Performed By: #### C BC #### [facility] [address] [place] [address] Dr. David Cutler NEUT # 1.5 103/ul Normal 1.4-6.5 [facility] Comment on above: Performed By: #### C BC #### [facility] [address] [place] [address] Dr. David Cutler Neutrophils/100 WBC (Bld) 35.6 % Critically low 43.0-75.0 [facility] Comment on above: Performed By: #### C BC #### [facility] [address] [place] [address] Dr. David Cutler Platelet mean volume (Bld) [Entitic vol] 10.0 fL Normal 9.5-13.5 [facility] Comment on above: Performed By: #### C BC #### [facility] [address] [place] [address] Dr. David Cutler PLT 226 103/ul Normal 150-450 [facility] Comment on above: Performed By: #### C BC #### [facility] [address] [place] [address] Dr. David Cutler RBC 4.51 106/ul Normal 4.20-5.40 [facility] Comment on above: Performed By: #### C BC #### [facility] [address] [place] [address] Dr. David Cutler WBC 4.3 103/ul Normal 4.0-11.0 [facility] Comment on above: Performed By: #### C BC #### [facility] [address] [place] [address] Dr. David Cutler FREE T4on 07-16-2021 Free T4 [Mass/Vol] 1.07 ng/dL Normal 0.76-1.46 [facility] Comment on above: Performed By: #### F T4, VITAD, VITB12 #### [facility] [address] [place] [address] Dr. David Cutler LIPID PROFILEon 07-16-2021 CHOL-HDL RATIO NORM SEE BELOW Normal [facility] Comment on above: Result Comment: 3.3 - 4.4 LOW RISK 4.4 - 7.1 AVERAGE RISK 7.1 - 11.0 MODERATE RISK >11.0 HIGH RISK Performed By: #### C MP, TSH, LIPID #### [facility] [address] [place] [address] Dr. David Cutler Cholesterol [Mass/Vol] 172 mg/dL Normal <=200 [facility] Comment on above: Performed By: #### C MP, TSH, LIPID #### [facility] [address] [address] [address] David Cutler Cholesterol in HDL [Mass/Vol] 77 mg/dL Critically high 40-60 [facility] Comment on above: Performed By: #### C MP, TSH, LIPID #### [facility] [address] [address] [address] David Cutler Cholesterol in LDL [Mass/Vol] 85.2 mg/dL Normal [facility] Comment on above: Performed By: #### C MP, TSH, LIPID #### [facility] [address] [address] [address] David Cutler Cholesterol.total/ Cholesterol in HDL [Mass ratio] 2.2 {ratio} Normal [facility] Comment on above: Performed By: #### C MP, TSH, LIPID #### [facility] [address] [address] [address] David Cutler HDL NORMAL > or = 60 mg/dl - LO W CARDIOVASCULAR RISK <40 mg/dl - HIGH CARDIOVASCULAR RISK Normal [facility] Comment on above: Performed By: #### C MP, TSH, LIPID #### [facility] [address] [address] [address] David Cutler LDL CALC NORMAL SEE BELOW Normal [facility] Comment on above: Result Comment: <100 mg/dl OPTIMAL 100 - 129 mg/dl NEAR OR ABOVE OPTIMAL 130 - 159 mg/dl BORDERLINE HIGH 160 - 189 mg/dl HIGH >190 mg/dl VERY HIGH Performed By: #### C MP, TSH, LIPID #### [facility] [address] [address] [address] David Cutler Triglyceride [Mass/Vol] 49 mg/dL Normal <=150 [facility] Comment on above: Performed By: #### C MP, TSH, LIPID #### [facility] [address] [address] [address] David Cutler VLDL CALC 9.8 mg/dL Normal [facility] Comment on above: Performed By: #### C MP, TSH, LIPID #### [facility] [address] [address] [address] David Cutler PROF 14(COMP METB)on 022 Albumin [Mass/Vol] 3.7 g/dL Normal 3.4-5.0 [facility] Comment on above: Performed By: #### C MP, TSH, LIPID #### [facility] [address] [address] [address] David Cutler Albumin/Globulin [Mass ratio] 1.0 {ratio} Normal [facility] Comment on above: Performed By: #### C MP, TSH, LIPID #### [facility] [address] [address] [address] David Cutler ALP [Catalytic activity/Vol] 67 U/L Normal 46-116 [facility] Comment on above: Performed By: #### C MP, TSH, LIPID #### [facility] [address] [address] [address] David Cutler ALT [Catalytic activity/Vol] 27 U/L Normal 14-59 [facility] Comment on above: Performed By: #### C MP, TSH, LIPID #### [facility] [address] [address] [address] David Cutler Anion gap [Moles/Vol] 9.6 mmol/L Normal [facility] Comment on above: Performed By: #### C MP, TSH, LIPID #### [facility] [address] [address] [address] David Cutler AST [Catalytic activity/Vol] 20 U/L Normal 15-37 [facility] Comment on above: Performed By: #### C MP, TSH, LIPID #### [facility] [address] [address] [address] David Cutler Bilirubin [Mass/Vol] 0.9 mg/dL Normal 0.2-1.0 [facility] Comment on above: Performed By: #### C MP, TSH, LIPID #### [facility] [address] [address] [address] David Cutler Calcium [Mass/Vol] 9.1 mg/dL Normal 8.5-10.1 [facility] Comment on above: Performed By: #### C MP, TSH, LIPID #### [facility] [address] [address] [address] David Cutler Chloride [Moles/Vol] 102 mmol/L Normal 98-107 [facility] Comment on above: Performed By: #### C MP, TSH, LIPID #### [facility] [address] [address] [address] David Cutler CO2 [Moles/Vol] 34.1 mmol/L Critically high 21.0-32.0 [facility] Comment on above: Performed By: #### C MP, TSH, LIPID #### [facility] [address] [address] [address] David Cutler Creatinine [Mass/Vol] 0.78 mg/dL Normal 0.55-1.02 [facility] Comment on above: Performed By: #### C MP, TSH, LIPID #### [facility] [address] [place] [address] Dr. David Cutler EGFR-AF [place] >60 Normal >=60 [facility] Comment on above: Performed By: #### C MP, TSH, LIPID #### [facility] [address] [place] [address] Dr. David Cutler EGFR-NON AF [place] >60 Normal >=60 [facility] Comment on above: Performed By: #### C MP, TSH, LIPID #### [facility] [address] [place] [address] Dr. David Cutler Globulin (S) [Mass/Vol] 3.7 g/dL Normal [facility] Comment on above: Performed By: #### C MP, TSH, LIPID #### [facility] [address] [address] [address] David Cutler Glucose [Mass/Vol] 95 mg/dL Normal 74-106 [facility] Comment on above: Performed By: #### C MP, TSH, LIPID #### [facility] [address] [address] [address] David Cutler Potassium [Moles/Vol] 3.7 mmol/L Normal 3.5-5.1 [facility] Comment on above: Performed By: #### C MP, TSH, LIPID #### [facility] [address] [place] [address] Dr. David Cutler Protein [Mass/Vol] 7.4 g/dL Normal 6.4-8.2 [facility] Comment on above: Performed By: #### C MP, TSH, LIPID #### [facility] [address] [place] [address] Dr. David Cutler Sodium [Moles/Vol] 142 mmol/L Normal 136-145 [facility] Comment on above: Performed By: #### C MP, TSH, LIPID #### [facility] [address] [place] [address] Dr. David Cutler Urea nitrogen [Mass/Vol] 13.0 mg/dL Normal 7.0-18.0 [facility] Comment on above: Performed By: #### C MP, TSH, LIPID #### [facility] [address] [place] [address] Dr. David Cutler Urea nitrogen/Creatinin e [Mass ratio] 16.7 mg/mg Normal [facility] Comment on above: Performed By: #### C MP, TSH, LIPID #### [facility] [address] [place] [address] Dr. David Cutler TSHon 07-16-2021 TSH 1.699 uIU/mL Normal 0.358-3.740 [facility] Comment on above: Performed By: #### C MP, TSH, LIPID #### [facility] [address] [place] [address] Dr. David Cutler TSH RANGE SEE BELOW Normal [facility] Comment on above: Result Comment: <0.3 4 UIU/ml HYPERTHYROID 0.34-5.60 UIU/ml EUTHYROID >5.60 UIU/ml HYPOTHYROID Performed By: #### C MP, TSH, LIPID #### [facility] [address] [place] [address] Dr. David Cutler VITAMIN B12on 07-16-2021 Cobalamin (Vitamin B12) [Mass/Vol] 632.0 pg/mL Normal 193.0-986.0 [facility] Comment on above: Performed By: #### F T4, VITAD, VITB12 #### [facility] [address] [address] [address] David Cutler VITAMIN D 25 OHon 07-16-2021 VIT D 25-OH 44.1 ng/mL Normal [facility] Comment on above: Performed By: #### F T4, VITAD, VITB12 #### [facility] [address] [address] [address] David Cutler VIT D RANGES SEE BELOW Normal [facility] Comment on above: Result Comment: <20 ng/mL Vit D deficient 20 - <30 ng/mL Vit D insufficient 30 - 100 ng/mL Vit D sufficient >100 ng/mL Potential Toxicity Performed By: #### F T4, VITAD, VITB12 #### [facility] [address] [address] [address] David Cutler PROGRESSon 03-07-2019 PROGRESS HNO ID: [id number] Author: Lashell Garcia Service: ? Author Type: [...] the following HPV DNA high risk types: 31,33,35,39,45,51,52,56,5 8,59,66,68 by PCR(*) ASSESSMENT: 48 year old yo female with a h/o dysplasia - Normal cytology pap with +HPV PLAN: - Reviewed results in detail with patient. 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 - Pt verbalized an understanding and agreed with the plan. - Instructed to call if she has any questions or concerns. Lashell Garcia APRN.LINEN ROOM WORKER CC: Francheska Freedman MD, MPH Normal [facility] CNOVSPon 03-02-2019 CNOVSP Visit (SP) Office ([facility]) ----- MILDRED LUJAN ([id number]) 1970 F Date Time Provider Department 03/02/19 9:20 AM FRANCHESKA FREEDMAN During your visit today, we recorded the following information about you: Temperature Pulse Respiration Blood pressure 98.1 degrees 66/minute 16/minute 132/76 Weight Height 69.8 kg 1.702 m Francheska Freedman MD 03/04/2019 5:55 PM Signed Gynecologic Oncology [facility] Consultation Re: Dinorah Lujan CCF#: [id number] 08/18/2018 PROBLEM: Patient presents for follow up, ASCUS, HPV+ SUBJECTIVE/HPI: Ms Lujan is a 46 year old female with a past medical history of depression, anxiety, HPV+, hx of abnormal paps, s/p TLH bilateral salpingectomy 07/2014 in setting of menorrhagia and failed ablation. Final pathology negative. She presented to [facility] for evaluation and management of LGSIL pap [...] today - Return to follow with her railroad switchman if pap is normal - RTC as needed Sincerely, Francheska Freedman MD, MPH 15 min spent with the patient with >505 face to face counseling and care coordination A letter and a copy of this office note were sent to: Dr. Martins CC: Malcom Sloan MD (PCP) Referring Provider: FRANCHESKA FREEDMAN [[id number]] Allergies As of Date: 03/02/2019 Noted Allergy [...] [R87.620, R87.811] Order(s):PAP FLUID VAGINAL VAULT SCREENING [[id number]] Order #: [id number] Disposition: Return if symptoms worsen or fail [...] by FRANCHESKA FREEDMAN MD on 03/04/19 Normal [facility] CYTOLOGYon 03-02-2019 CYTOLOGY ADDITIONAL PROCEDURES PRESENT Specimen originated from [facility] Specimen #: [id number] Submitting Physician: FRANCHESKA FREEDMAN MD SPECIMEN SUBMITTED [...] from every slide are reviewed by a walking dragline operator. CAROLA Jaimes(ASCP) (Electronic Signature) ADDITIONAL PROCEDURE(S) HUMAN PAPILLOMA VIRUS Date Ordered: 03/05/2019 Date Reported: 03/06/2019 Procedure Results and Interpretation Negative for HPV DNA high risk type 16 by PCR. Negative for HPV DNA high risk type 18 by PCR. Positive for one or more of the following HPV DNA high risk types: 31,33,35,39,45,51,52,56,5 8,59,66,68 by PCR(*) This test was developed and its performance characteristics determined by [facility] [place] ([facility]). It has not been cleared or approved by the FDA. -[facility] is regulated under CLIA as qualified to perform high-complexity testing. This test is used for clinical purposes. It should not be regarded as investigational or for research. CLINICAL DATA HYSTERECTOMY TOTAL, HPV Testing: Yes, automatic HPV patients over 30 Date of Last Menstrual Period: Hysterectomy STAINS A: VAGINAL VAULT,SCREENING, FLUID THIN PREP TANK RIVETER Jerardo Ladd M.D., Historian Research Assistant Date of Report: 03/07/2019 Date of Procedure: 03/02/2019 Date of Receipt: 03/05/2019 Submitted by: FRANCHESKA FREEDMAN MD Location: [facility] Diagnostic interpretation performed at [facility], [address] [place] [address]. CLIA Number: [id number] The Pap Smear is a screening test for cervical cancer. False negative results occur with all screening tests, emphasizing the need for rescreening at recommended intervals, and clinical correlation. Normal [facility] HPV w/Genotypeon 03-02-2019 HPV HighRisk Other Positive for one or more of the following HPV DNA high risk types: 31,33,35,39,45,51,52,56,5 8,59,66,68 by PCR Critically abnormal [facility] Comment on above: Result Comment: This test was developed and its performance characteristics determined by [facility] and [facility] [place] ([facility]). It has not been cleared or approved by the FDA. -[facility] is regulated under CLIA as qualified to perform high-complexity testing. This test is used for clinical purposes. It should not be regarded as investigational or for research. Performed By: #### H PVHRR #### [address] [place] [address] HPV HighRisk Type 16 Negative Normal [facility] Comment on above: Performed By: #### H PVHRR #### [address] [place] [address] HPV HighRisk Type 18 Negative Normal [facility] Comment on above: Performed By: #### H PVHRR #### [facility] [address] [place] [address] PROGRESSon 03-02-2019 PROGRESS HNO ID: [id number] Author: Francheska Freedman Service: ? Author Type: Physician Type: Progress Notes Filed: 03/04/2019 5:55 PM Note Text: Gynecologic Oncology [facility] Consultation Re: Dinorah Lujan CCF#: [id number] 08/18/2018 PROBLEM: Patient presents for follow up, ASCUS, HPV+ SUBJECTIVE/HPI: Ms Lujan is a 46 year old female with a past medical history of depression, anxiety, HPV+, hx of abnormal paps, s/p TLH bilateral salpingectomy 07/2014 in setting of menorrhagia and failed ablation. Final pathology negative. She presented to [facility] for evaluation and management of LGSIL pap [...] today - Return to follow with her railroad switchman if pap is normal - RTC as needed Sincerely, Francheska Freedman MD, MPH 15 min spent with the patient with >505 face to face counseling and care coordination A letter and a copy of this office note were sent to: Dr. Martins CC: Malcom Sloan MD (PCP) [facility] CYTOLOGYon 08-19-2018 CYTOLOGY Specimen originated from [facility] Specimen #: [id number] Submitting Physician: FRANCHESKA FREEDMAN MD SPECIMEN SUBMITTED [...] from every slide are reviewed by a walking dragline operator. CAROLA Pelletier(ASCP) (Electronic Signature) CLINICAL DATA ROUTINE EXAM, HPV Testing: No HPV test Date of Last Menstrual Period: Hysterectomy STAINS A: VAGINAL VAULT,SCREENING, FLUID THIN PREP TANK RIVETER Jerardo Ladd M.D., Historian Research Assistant Date of Report: 08/25/2018 Date of Procedure: 08/19/2018 Date of Receipt: 08/21/2018 Submitted by: FRANCHESKA FREEDMAN MD Location: [place] Diagnostic interpretation performed at [facility], [address] [place] [address]. CLIA Number: [id number] The Pap Smear is a screening test for cervical cancer. False negative results occur with all screening tests, emphasizing the need for rescreening at recommended intervals, and clinical correlation. [facility] CNOVSPon 08-18-2018 CNOVSP Visit (SP) Office ([place]) ----- MILDRED LUJAN ([id number]) 1970 F Date Time Provider Department 08/18/18 10:40 AM FRANCHESKA FREEDMAN During your visit today, we recorded the following information about you: Temperature Pulse Respiration Blood pressure 98.3 degrees 74/minute 18/minute 116/69 Weight Height 71.7 kg 1.702 m Francheska Freedman MD 08/19/2018 11:15 AM Signed Gynecologic Oncology [facility] Consultation Re: Dinorah Rojasalonso [facility]#: [id number] 08/18/2018 PROBLEM: Patient presents for follow up, ASCUS, HPV+ SUBJECTIVE/HPI: Ms Lujan is a 46 year old female with a past medical history of depression, anxiety, HPV+, hx of abnormal paps, s/p TLH bilateral salpingectomy 07/2014 in setting of menorrhagia and failed ablation. Final pathology negative. She presented to [facility] for evaluation and management of LGSIL pap [...] [R87.620, R87.811] Order(s):PAP FLUID VAGINAL VAULT SCREENING [[id number]] Order #: [id number] Disposition: Return in about 6 months (around [...] by FRANCHESKA FREEDMAN MD on 08/19/18 [facility] PROGRESSon 08-18-2018 PROGRESS HNO ID: [id number] Author: Francheska Freedman Service: ? Author Type: Physician Type: Progress Notes Filed: 08/19/2018 11:15 AM Note Text: Gynecologic Oncology [facility] Consultation Re: Dinorah Lujan CCF#: [id number] 08/18/2018 PROBLEM: Patient presents for follow up, ASCUS, HPV+ SUBJECTIVE/HPI: Ms Lujan is a 46 year old female with a past medical history of depression, anxiety, HPV+, hx of abnormal paps, s/p TLH bilateral salpingectomy 07/2014 in setting of menorrhagia and failed ablation. Final pathology negative. She presented to [facility] for evaluation and management of LGSIL pap [...] note were sent to: Dr. Martins CC: Malcmo Sloan MD (PCP) [facility] CNOVon 01-25-2018 CNOV Office Visit (GYNML) TEE LUJANHRYN ([id number]) 1970 FDate Time Provider Wufjhevcew81/12/18 9:30 AM FRANCHESKA FREEDMAN [facility] During your visit today, we recorded the following information about you: Temperature Pulse Blood pressure Weight 98.2 degrees 76/minute 132/72 70.3 kgFrancheska Freedmna MD 01/25/2018 10:15 AM SignedGynecologic OncologyMercy Health West HospitalConsultationRe: [facility] [id number]/12/2018PROBLEM : Patient presents for follow up, ASCUS, HPV+SUBJECTIVE/HPI: Ms Lujan is a 46 year old female with a pastmedical history of depression, anxiety, HPV+, hx of abnormal paps, s/p TLHbilateral salpingectomy 07/2014 in setting of menorrhagia and failed ablation.Final pathology negative. She presented to [facility] for evaluation andmanagement of LGSIL pap 11/23/2016, HPV negativePap/bx hx:06/2013 ASCUS, HPV negative08/2015 ASCUS, HPV positive/intermediate10/03 16 colpo negative, no bx2/2016 LSIL.04/2016 colpo negative, no bx11/2016 LSIL, HPV negative07/01 ASCUS HPV negativePRIOR TREATMENT AND DATE:1)07/2014 Hysterectomy, bilateral salpingectomy - pathology negativeHEALTH MAINTENANCE:Last pap: 12/30/2017 ASCUS, HPV+Last mammogram: 10/2016 WNL per ptLast colonoscopy: NeverAmy [place], RNSUBJECTIVE/INTERVAL HISTORY: Mildred Lujan reports that she [...] Pap and HPV next visit- RTC in [address] [place], [place] [address]Francheska MD, MPH25 min spent with the patient [...] by FRANCHESKA FREEDMAN MD on 01/25/18 [facility] PROGRESSon 01-19-2018 Protein mass conc HNO ID: [id number] thor: Francheska Rogerservice: (none)Author Type: PhysicianType: Progress NotesFiled: 01/25/2018 10:15 AMNote Text:Gynecologic OncologyMercy Health West HospitalConsultationRe: Dinorah LujanFLAGET [facility]OR[facility]#: [id number] : Patient presents for follow up, ASCUS, HPV+SUBJECTIVE/HPI: Ms Lujan is a 46 year old female with a pastmedical history of depression, anxiety, HPV+, hx of abnormal paps, s/p TLHbilateral salpingectomy 07/2014 in setting of menorrhagia and failedablation. Final pathology negative. She presented to [facility] forevaluation and management of LGSIL pap 11/23/2016, HPV negativePap/bx hx:06/2013 ASCUS, HPV negative08/2015 ASCUS, HPV positive/intermediate10/03 16 colpo negative, no bx/2016 LSIL.04/2016 colpo negative, no bx/2016 LSIL, HPV negative07/01 ASCUS HPV negativePRIOR TREATMENT AND DATE:1)07/2014 Hysterectomy, bilateral salpingectomy - pathology negativeHEALTH MAINTENANCE:Last pap: 12/30/2017 ASCUS, HPV+Last mammogram: 10/2016 WNL per ptLast colonoscopy: NeverAmy [place], RNSUBJECTIVE/INTERVAL HISTORY: Mildred Lujan reports that she [...] Pap and HPV next visit- RTC in [address] [place] [address],Francheska Freedman MD, MPH25 min spent with the patient with >505 face to face counseling and carecoordinationA letter and a copy of this office note were sent to:Dr. ParikhoCC:Malcom Sloan MD (PCP) [facility] Encounters Encounter Date Encounter Type Care Provider Facility Start: 03-22-2022 End: 03-22-[address] URIEL MARTINS . Facility:[facility] Start: 12-23-2021 End: 12-24-[address] URIEL MARTINS . Facility:[facility] Start: 07-16-2021 End: 07-17-[address] URIEL MARTINS . Facility:[facility] Start: 01-25-2018 End: 01-25-2018 Patient encounter procedure FRANCHESKA FREEDMAN [facility] Payers Date Payer Category Payer Unknown [id number] [id number] [id number] 1970 Unknown [id number] [id number] [id number] 1970 Unknown [id number] [id number] [id number] 1957 Unknown [id number] Summary Purpose Family History No Family History Records FoundNo Family History Records FoundNo Family History Records Found Advance Directives No Advanced Directives Records FoundNo Advanced Directives Records FoundNo Advanced Directives Records Found Additional Source Comments INFORMATION SOURCE (unrecogn ized section and content) DATE CREATED AUTHOR 01/28/2018 [facility] DATE CREATED AUTHOR AUTHOR'S ORGANIZ ATION 03/07/2019 [facility] DATE CREATED AUTHOR AUTHOR'S ORGANIZ ATION 05/04/2022 [facility] RECORDS PERTAINING TO PATIENTS WHO ARE [...] BE BASED ON THE PRIMARY CLINICAL RECORDS. [facility]. provides no warranty or guarantee of the accuracy or completeness of information in this document.
[2023-03-29 19:07] LABS: Age Gdln ACOG Testing Note (.); HPV Aptima Negative (Negative); IGP, Aptima HPV, rfx 16/18,45 Note (.)
== END 2023-03-24 20:00 | disposition home or self-care (01) ==
LOC: LAB 19:59
PROVIDERS: PCP Family Medicine; Visit Provider Obstetrics & Gynecology
DX: Z01.419 Encounter for gynecological examination (general) (routine) without abnormal findings (principal)
CPT/HCPCS: 87624; G0145

== ENCOUNTER 2023-09-06 09:08 | Outpatient (OUT) | payer BC, SELFPAY ==
--- OUTSIDE RECORDS SUMMARY | 2023-09-06 09:27 | XMS_ITS | CCD ---
Author Organization [facility] Providers Care Nurse'S Aides Teacher Name Role Phone FRANCHESKA FREEDMAN Unavailable Unavailable ELIEZER ., DR TREVINO Admitting Unavailable ELIEZER ., DR TREVINO Attending Unavailable SOUMYA, DR CADET Primary Care Unavailable ELIEZER ., DR TREVINO Consulting Unavailable ELIEZER ., DR TREVINO Admitting Unavailable ELIEZER ., DR TREVINO Attending Unavailable ESTELL MANOR, DR TRESA Anand Consulting Unavailable SOUMYA, DR CADET Primary Care Unavailable ELIEZER ., DR TREVINO Consulting Unavailable ELIEZER ., DR TREVINO Consulting Unavailable ELIEZER ., DR TREVINO Admitting Unavailable SOUMYA, DR CADET Primary Care Unavailable ELIEZER ., DR TREVINO Attending Unavailable Unallocated, [facility] Provider Primary Care Provider URIEL MARTINS Attending Unavailable URIEL MARTINS Attending Unavailable Allergies Allergy Classification Reported Allergen(s) Allergy Type Date of Onset Reaction(s) Facility (1 source) Sulfonamides (Antibiotic); Translations: [SULFA (SULFONAMIDE ANTIBIOTICS)] Propensity to adverse reactions to drug (disorder) 7 [facility] Repository (1 source) Sulfonamides (Antibiotic) Drug allergy (disorder) 4 [facility] Repository (3 sources) Sulfanilamide Allergy to substance 3 [facility] Healthcare (3 sources) Sulfonamides (Antibiotic) Drug Allergy 7 Unknown [facility] Healthcare Work Phone: Medications Current Medications Medication Drug Class(es) Dates Sig (Normalized) Sig (Original) betamethasone 3 mg/ml / betamethasone acetate 3 mg/ml injectable suspension (3 sources) Corticosteroid Start: 07-28-2022 betamethasone acetate-betamethas one sodium phosphate (Celestone) injection 6 mg estradiol 0.5 mg oral tablet (3 sources) Estrogen take 1 tablet by mouth in the morning estradiol (Estrace) 0.5 MG tablet Take 0.5 mg by mouth in the morning. 0 Active FLUoxetine 20 mg oral capsule (3 sources) Serotonin Reuptake Inhibitor Start: 01-03-2023 End: 01-03-2024 take 1 capsule by mouth in the morning FLUoxetine (PROzac) 20 MG capsule Indications: Mood changes Take 1 capsule (20 mg) by mouth in the morning. 30 capsule 11 01/03/2023 01/03/2024 Active 10 ml lidocaine hydrochloride 10 mg/ml injection (3 sources) Antiarrhythmic, Amide Local Anesthetic Start: 07-28-2022 lidocaine (Xylocaine) 1 % injection 5 mg 24 hr metFORMIN hydrochloride 500 mg extended release oral tablet (3 sources) Biguanide Start: 02-25-2023 take 1 tablet by mouth once daily at dinner metFORMIN XR (Glucophage-XR) 500 MG 24 hr tablet Indications: Insulin resistance TAKE 1 TABLET BY MOUTH EVERY DAY WITH EVENING MEAL 90 tablet 3 02/25/2023 Active Completed/Discontinued Medications Medication Drug Class(es) Dates Sig (Normalized) Sig (Original) citalopram 40 mg oral tablet (2 sources) Serotonin Reuptake Inhibitor End: 03-24-2023 take 1 tablet by mouth in the morning citalopram (CeleXA) 40 MG tablet Take 40 mg by mouth in the morning. 0 03/24/2023 Discontinued Problems Active Problems Problem Classification Problem Date [...] conditions (not mental disorders or infectious disease) (10 sources) Encounter for screening for malignant neoplasm of cervix; Translations: [Encounter for screening mammogram for malignant neoplasm of breast] Onset: 12-23-2021 Episodic Residual codes; unclassified (2 sources) Postmenopausal state; Translations: [Asymptomatic menopausal state] 03-24-2023 Episodic Sexually transmitted infections (not HIV or [...] Test Name Value Interpretation Reference Range Facility IGP,APTIMA HPV,AGE GDLNon AGE GDLN ACOG TESTING Note . [facility] Healthcare Comment on above: TESTS RESULT FLAG UN ITS REF RANGE LAB Clinician Provided Cytology Information Source.............Vagina No. of containers..01 ThinPrep Vial Age Algo ACOG Jayna... 30-65 01 FLAG LEGEND: L-Low Normal,H-High Normal,LL-Alert Low,HH-Alert High <-Panic Low,>-Panic High,A-Abnormal,AA-Critical Abnormal Performed at: 01 =G [address] [address] Bette Tidwell MD, HPV APTIMA Negative Negative [facility] Comment on above: This nucleic acid am plification test detects fourteen high- risk HPV types (16,18,31,33,35,39,45,51,52,56,58,59,66,68) without differentiation. Performed at: =G - [facility], [place] [id number] Healthcare Architect: Bette Tidwell MD, Phone: [phone] Performed at: - [address], [place] [id number] Healthcare Architect: Bette Tidwell MD, Phone: [phone] IGP, APTIMA HPV, RFX 16/18,45 Note . [facility] Comment on above: TESTS RESULT FLAG UN ITS REF RANGE LAB DIAGNOSIS: 02 NEGATIVE FOR INTRAEPITHELIAL LESION OR MALIGNANCY. Specimen adequacy: 02 Satisfactory for evaluation. Performed by: 02 Bernadette Herrera, Fleet Service Manager ([facility]) . 02 Note: Note 02 The Pap smear is a screening test designed to aid in the detection of premalignant and malignant conditions of the uterine cervix. It is not a diagnostic procedure and should not be used as the sole means of detecting cervical cancer. Both false-positive and false-negative reports do occur. Test Methodology: Note 02 This liquid based ThinPrep(R) pap test was screened with the use of an image guided system. HPV Genotype Reflex Note 02 Criteria not met, HPV Genotype not performed. FLAG LEGEND: L-Low Normal,H-High Normal,LL-Alert Low,HH-Alert High <-Panic Low,>-Panic High,A-Abnormal,AA-Critical Abnormal Performed at: [address] [facility] [address] [address] Bette Tidwell MD, SPATULA-ALONE VAGINA [facility] PAP ACOG PANEL 2: 30 to 65on 03-29-2022 . . Normal [facility] Comment on above: Result Comment: Perf ormed at: WB Performed By: #### C BC #### [facility] [address] [address] [address] David Cutler Age Gdln ACOG Testing 30-[address] [facility] Comment on above: Performed By: #### C BC #### [facility] [address] [address] [address] David Cutler DIAGNOSIS: Comment Normal [facility] Comment on above: Result Comment: NEGA TIVE FOR INTRAEPITHELIAL LESION OR MALIGNANCY. Performed at: WB Performed By: #### C BC #### [facility] [address] [address] [address] David Cutler HPV Aptima Negative Normal Negative [facility] Comment on above: Result Comment: This nucleic acid amplification test detects fourteen high-risk HPV types (16,18,31,33,35,39,45,51,52,56,58,59,66,68) without differentiation. Performed at: =G Performed By: #### C BC #### [facility] [address] [address] [address] David Cutler HPV Genotype Reflex Comment Normal [facility] Comment on above: Result Comment: Crit eria not met, HPV Genotype not performed. Performed at: WB Performed By: #### C BC #### [facility] [address] [address] [address] David Cutler Methodology: Comment Normal [facility] Comment on above: Result Comment: This liquid based ThinPrep(R) pap test was screened with the use of an image guided system. Performed at: WB Performed By: #### C BC #### [facility] [address] [address] [address] David Cutler Note: Comment Normal [facility] Comment on above: Result Comment: The Pap smear is a screening test designed to aid in the detection of premalignant and malignant conditions of the uterine cervix. It is not a diagnostic procedure and should not be used as the sole means of detecting cervical cancer. Both false-positive and false-negative reports do occur. . Performed at: WB Performed By: #### C BC #### [facility] [address] [address] [address] David Cutler Performed by: Comment Normal [facility] Comment on above: Result Comment: Mayte Deluna, Fleet Service Manager ([employer]) Performed at: WB Performed By: #### C BC #### [facility] [address] [place], [place] [address] Dr. David Cutler Specimen adequacy: Comment Normal [facility] Comment on above: Result Comment: Sati sfactory for evaluation. No endocervical component is identified. Performed at: WB Performed By: #### C BC #### [facility] [address] [place] [address] Dr. David Cutler MG MAMM SCREEN 3D LETITIA CADon 12-23-2021 MG MAMM SCREEN 3D LETITIA CAD Patient: MILDRED LUJAN Exam Date: 12/23/2021 : 1970 Gender:F Ordering : DR URIEL MARTINS . Admission #: [id number] Family : Order #: [id number] CLICK HERE TO VIEW EXAM RADIOLOGY REPORT [...] Treatments None Family Cancers None LOCATION: [facility] BREAST COMPOSITION: Heterogeneously dense,which may obscure [...] Garrett MD on 12/23/2021 at 10:[address] [facility] ESTRADIOLon 07-17-2021 Estradiol 58.3 pg/mL Normal [facility] Comment on above: Result Comment: Adul t Female: Follicular phase 12.5 - 166.0 Ovulation phase 85.8 - 498.0 Luteal phase 43.8 - 211.0 Postmenopausal <6.0 - 54.7 1st trimester 215.0 - >4300.0 Marie ECLIA methodology Performed By: #### E STRADI #### [facility] [address] [place] [address] Dr. David Cutler PROGESTERONEon 07-17-2021 Progesterone 0.1 ng/mL Normal [facility] Comment on above: Result Comment: Foll icular phase 0.1 - 0.9 Luteal phase 1.8 - 23.9 Ovulation phase 0.1 - 12.0 First trimester 11.0 - 44.3 Second trimester 25.4 - 83.3 Third trimester 58.7 - 214.0 Postmenopausal 0.0 - 0.1 Performed By: #### P ROGES #### [facility] [address] [place] [address] Dr. David Cutler CBC AUTO DIFFon 07-16-2021 BASO # 0.0 103/ul Normal 0.0-0.[address] [facility] Comment on above: Performed By: #### C BC #### [facility] [address] [place] [address] Dr. David Cutler Basophils/100 WBC (Bld) 0.9 % Normal 0.2-2.0 [facility] Comment on above: Performed By: #### C BC #### [facility] [address] [place] [address] Dr. David Cutler EO # 0.1 103/ul Normal 0.0-0.[address] [facility] Comment on above: Performed By: #### C BC #### [facility] [address] [place] [address] Dr. David Cutler Eosinophils/100 WBC (Bld) 2.8 % Normal 0.9-7.[address] [facility] Comment on above: Performed By: #### C BC #### [facility] [address] [place] [address] Dr. David Cutler Erythrocyte distribution width (RBC) [Ratio] 13.0 % Normal 11.0-15.[address] [facility] Comment on above: Performed By: #### C BC #### [facility] [address] [place] [address] Dr. David Cutler Hematocrit (Bld) [Volume fraction] 41.7 % Normal 36.0-48.[address] [facility] Comment on above: Performed By: #### C BC #### [facility] [address] [place] [address] Dr. David Cutler Hemoglobin (Bld) [Mass/Vol] 14.0 g/dL Normal 12.0-16.[address] [facility] Comment on above: Performed By: #### C BC #### [facility] [address] [place] [address] Dr. David Cutler IG # 0.00 10e3/ul Normal 0.00-0.[address] [facility] Comment on above: Performed By: #### C BC #### [facility] [address] [place] [address] Dr. David Cutler IG % 0.0 % Normal 0.0-0.[address] [facility] Comment on above: Performed By: #### C BC #### [facility] [address] [place] [address] Dr. David Cutler LYMPH # 2.1 103/ul Normal 1.2-3.[address] [facility] Comment on above: Performed By: #### C BC #### [facility] [address] [place] [address] Dr. David Cutler Lymphocytes/100 WBC (Bld) 49.6 % Normal 20.5-60.[address] [facility] Comment on above: Performed By: #### C BC #### [facility] [address] [place] [address] Dr. David Cutler MANUAL DIFF REQ NO Normal [facility] Comment on above: Performed By: #### C BC #### [facility] [address] [place] [address] Dr. David Cutler MCH (RBC) [Entitic mass] 31.0 pg Normal 26.7-34.[address] [facility] Comment on above: Performed By: #### C BC #### [facility] [address] [place] [address] Dr. David Cutler MCHC (RBC) [Mass/Vol] 33.6 g/dL Normal 29.9-35.2 [facility] Comment on above: Performed By: #### C BC #### [facility] [address] [place] [address] Dr. David Cutler MCV (RBC) [Entitic vol] 92.5 fL Normal 81.0-99.[address] [facility] Comment on above: Performed By: #### C BC #### [facility] [address] [place] [address] Dr. David Cutler MONO # 0.5 103/ul Normal 0.3-0.[address] [facility] Comment on above: Performed By: #### C BC #### [facility] [address] [place] [address] Dr. David Cutler Monocytes/100 WBC (Bld) 11.1 % Normal 1.7-12.[address] [facility] Comment on above: Performed By: #### C BC #### [facility] [address] [place] [address] Dr. David Cutler NEUT # 1.5 103/ul Normal 1.4-6.5 [facility] Comment on above: Performed By: #### C BC #### [facility] [address] [place] [address] Dr. David Cutler Neutrophils/100 WBC (Bld) 35.6 % Critically low 43.0-75.0 [facility] Comment on above: Performed By: #### C BC #### [facility] [address] [place] [address] Dr. David Cutler Platelet mean volume (Bld) [Entitic vol] 10.0 fL Normal 9.5-13.5 [facility] Comment on above: Performed By: #### C BC #### [facility] [address] [address] [address] David Cutler PLT 226 103/ul Normal 150-[address] [facility] Comment on above: Performed By: #### C BC #### [facility] [address] [address] [address] David Cutler RBC 4.51 106/ul Normal 4.20-5.[address] [facility] Comment on above: Performed By: #### C BC #### [facility] [address] [address] [address] David Cutler WBC 4.3 103/ul Normal 4.0-11.[address] [facility] Comment on above: Performed By: #### C BC #### [facility] [address] [place] [address] Dr. David Cutler FREE T4on 07-16-2021 Free T4 [Mass/Vol] 1.07 ng/dL Normal 0.76-1.46 [facility] Comment on above: Performed By: #### F T4, VITAD, VITB12 #### [facility] [address] [place] [address] Dr. David Cutler LIPID PROFILEon 07-16-2021 CHOL-HDL RATIO NORM SEE BELOW Normal [facility] Comment on above: Result Comment: 3.3 - 4.4 LOW RISK 4.4 - 7.1 AVERAGE RISK 7.1 - 11.0 MODERATE RISK >11.0 HIGH RISK Performed By: #### C MP, TSH, LIPID #### [facility] [address] [place] [address] Dr. David Cutler Cholesterol [Mass/Vol] 172 mg/dL Normal <=[address] [facility] Comment on above: Performed By: #### C MP, TSH, LIPID #### [facility] [address] [place] [address] Dr. David Cutler Cholesterol in HDL [Mass/Vol] 77 mg/dL Critically high 40-[address] [facility] Comment on above: Performed By: #### C MP, TSH, LIPID #### [facility] [address] [place], [place] [id number] Dr. David Cutler Cholesterol in LDL [Mass/Vol] 85.2 mg/dL Normal [facility] Comment on above: Performed By: #### C MP, TSH, LIPID #### [facility] [address] [place] [address] Dr. David Cutler Cholesterol.total/ Cholesterol in HDL [Mass ratio] 2.2 {ratio} Normal [facility] Comment on above: Performed By: #### C MP, TSH, LIPID #### [facility] [address] [place] [address] Dr. David Cutler HDL NORMAL > or = 60 mg/dl - LO W CARDIOVASCULAR RISK <40 mg/dl - HIGH CARDIOVASCULAR RISK Normal [facility] Comment on above: Performed By: #### C MP, TSH, LIPID #### [facility] [address] [place] [address] Dr. David Cutler LDL CALC NORMAL SEE BELOW Normal [facility] Comment on above: Result Comment: <100 mg/dl OPTIMAL 100 - 129 mg/dl NEAR OR ABOVE OPTIMAL 130 - 159 mg/dl BORDERLINE HIGH 160 - 189 mg/dl HIGH >190 mg/dl VERY HIGH Performed By: #### C MP, TSH, LIPID #### [facility] [address] [place] [address] Dr. David Cutler Triglyceride [Mass/Vol] 49 mg/dL Normal <=[address] [facility] Comment on above: Performed By: #### C MP, TSH, LIPID #### [facility] [address] [place] [address] Dr. David Cutler VLDL CALC 9.8 mg/dL Normal [facility] Comment on above: Performed By: #### C MP, TSH, LIPID #### [facility] [address] [address] [address] David Cutler PROF 14(COMP METB)on 022 Albumin [Mass/Vol] 3.7 g/dL Normal 3.4-5.0 [facility] Comment on above: Performed By: #### C MP, TSH, LIPID #### [facility] [address] [place] [address] Dr. David Cutler Albumin/Globulin [Mass ratio] 1.0 {ratio} Normal [facility] Comment on above: Performed By: #### C MP, TSH, LIPID #### [facility] [address] [address] [address] David Cutler ALP [Catalytic activity/Vol] 67 U/L Normal 46-[address] [facility] Comment on above: Performed By: #### C MP, TSH, LIPID #### [facility] [address] [address] [address] David Cutler ALT [Catalytic activity/Vol] 27 U/L Normal 14-[address] [facility] Comment on above: Performed By: #### C MP, TSH, LIPID #### [facility] [address] [address] [address] David Cutler Anion gap [Moles/Vol] 9.6 mmol/L Normal [facility] Comment on above: Performed By: #### C MP, TSH, LIPID #### [facility] [address] [address] [address] David Cutler AST [Catalytic activity/Vol] 20 U/L Normal 15-[address] [facility] Comment on above: Performed By: #### C MP, TSH, LIPID #### [facility] [address] [address] [address] David Cutler Bilirubin [Mass/Vol] 0.9 mg/dL Normal 0.2-1.[address] [facility] Comment on above: Performed By: #### C MP, TSH, LIPID #### [facility] [address] [place] [address] Dr. David Cutler Calcium [Mass/Vol] 9.1 mg/dL Normal 8.5-10.1 [facility] Comment on above: Performed By: #### C MP, TSH, LIPID #### [facility] [address] [place] [address] Dr. David Cutler Chloride [Moles/Vol] 102 mmol/L Normal 98-[address] [facility] Comment on above: Performed By: #### C MP, TSH, LIPID #### [facility] [address] [place] [address] Dr. David Cutler CO2 [Moles/Vol] 34.1 mmol/L Critically high 21.0-32.[address] [facility] Comment on above: Performed By: #### C MP, TSH, LIPID #### [facility] [address] [address] [address] David Cutler Creatinine [Mass/Vol] 0.78 mg/dL Normal 0.55-1.02 [facility] Comment on above: Performed By: #### C MP, TSH, LIPID #### [facility] [address] [address] [address] David Cutler EGFR-AF ANGUILLAN >60 Normal >=60 [facility] Comment on above: Performed By: #### C MP, TSH, LIPID #### [facility] [address] [address] [address] David Cutler EGFR-NON AF ANGUILLAN >60 Normal >=60 [facility] Comment on above: Performed By: #### C MP, TSH, LIPID #### [facility] [address] [address] [address] David Cutler Globulin (S) [Mass/Vol] 3.7 g/dL Normal [facility] Comment on above: Performed By: #### C MP, TSH, LIPID #### [facility] [address] [address] [address] David Cutler Glucose [Mass/Vol] 95 mg/dL Normal 74-106 [facility] Comment on above: Performed By: #### C MP, TSH, LIPID #### [facility] [address] [address] [address] David Cutler Potassium [Moles/Vol] 3.7 mmol/L Normal 3.5-5.1 [facility] Comment on above: Performed By: #### C MP, TSH, LIPID #### [facility] [address] [address] [address] David Cutler Protein [Mass/Vol] 7.4 g/dL Normal 6.4-8.2 [facility] Comment on above: Performed By: #### C MP, TSH, LIPID #### [facility] [address] [place] [address] Dr. David Cutler Sodium [Moles/Vol] 142 mmol/L Normal 136-145 [facility] Comment on above: Performed By: #### C MP, TSH, LIPID #### [facility] [address] [place] [address] Dr. David Cutler Urea nitrogen [Mass/Vol] 13.0 mg/dL Normal 7.0-18.[address] [facility] Comment on above: Performed By: #### C MP, TSH, LIPID #### [facility] [address] [place] [address] Dr. David Cutler Urea nitrogen/Creatinin e [Mass ratio] 16.7 mg/mg Normal [facility] Comment on above: Performed By: #### C MP, TSH, LIPID #### [facility] [address] [place] [address] Dr. David Cutler TSHon 07-16-2021 TSH 1.699 uIU/mL Normal 0.358-3.740 [facility] Comment on above: Performed By: #### C MP, TSH, LIPID #### [facility] [address] [place] [address] Dr. David Cutler TSH RANGE SEE BELOW Normal [facility] Comment on above: Result Comment: <0.3 4 UIU/ml HYPERTHYROID 0.34-5.60 UIU/ml EUTHYROID >5.60 UIU/ml HYPOTHYROID Performed By: #### C MP, TSH, LIPID #### [facility] [address] [place] [address] Dr. David Cutler VITAMIN B12on 07-16-2021 Cobalamin (Vitamin B12) [Mass/Vol] 632.0 pg/mL Normal 193.0-986.[address] [facility] Comment on above: Performed By: #### F T4, VITAD, VITB12 #### [facility] [facility] [address] [place] [address] Dr. David Cutler VITAMIN D 25 OHon 07-16-2021 VIT D 25-OH 44.1 ng/mL Normal [facility] Comment on above: Performed By: #### F T4, VITAD, VITB12 #### [facility] [address] [address] [address] David Cutler VIT D RANGES SEE BELOW Normal [facility] Comment on above: Result Comment: <20 ng/mL Vit D deficient 20 - <30 ng/mL Vit D insufficient 30 - 100 ng/mL Vit D sufficient >100 ng/mL Potential Toxicity Performed By: #### F T4, VITAD, VITB12 #### [facility] [address] [address] [address] David Cutler PROGRESSon 03-07-2019 PROGRESS HNO ID: [id number] Author: Lashell Garcia Service: ? Author Type: [...] with patient. - Referred back to her oracle scm consultant for continued cervical screening, routine THERAPY COORDINATOR care. - Pt verbalized an understanding and agreed with the plan. - Instructed to call if she has any questions or concerns. Lashell Garcia, FORM SETTER SUPERVISOR.SUPERVISOR CC: Francheska Freedman MD, MPH Normal [facility] CNOVSPon 03-02-2019 CNOVSP Visit (SP) Office (GYNOSA) ----- MILDRED LUJAN ([id number]) 1970 F Date Time Provider Department 03/02/19 9:20 AM FRANCHESKA FREEDMAN During your visit today, we recorded the following information about you: Temperature Pulse Respiration Blood pressure 98.1 degrees 66/minute 16/minute 132/76 Weight Height 69.8 kg 1.702 m Francheska Freedman MD 03/04/2019 5:55 PM Signed Gynecologic Oncology [facility] Consultation Re: Dinorah Lujan CCF#: [id number] 08/18/2018 PROBLEM: Patient presents for follow up, ASCUS, HPV+ SUBJECTIVE/HPI: Ms Lujan is a 46 year old female with a past medical history of depression, anxiety, HPV+, hx of abnormal paps, s/p TLH bilateral salpingectomy 07/2014 in setting of menorrhagia and failed ablation. Final pathology negative. She presented to [facility]Onc for evaluation and management of LGSIL pap [...] today - Return to follow with her oracle scm consultant if pap is normal - RTC as needed Sincerely, Francheska Freedman MD, MPH 15 min spent with the patient with >505 face to face counseling and care coordination A letter and a copy of this office note were sent to: Dr. Martins CC: Malcom Sloan MD (PCP) Referring Provider: FRANCHESKA FREEDMAN [[id number]] Allergies As of Date: 03/02/2019 Noted Allergy [...] [R87.620, R87.811] Order(s):PAP FLUID VAGINAL VAULT SCREENING [[id number]] Order #: [id number] Disposition: Return if symptoms worsen or fail [...] by FRANCHESKA FREEDMAN MD on 03/04/19 Normal [facility] CYT[facility]Yon 03-02-2019 CYTOLOGY ADDITIONAL PROCEDURES PRESENT Specimen originated from [facility] Specimen #: [id number] Submitting Physician: FRANCHESKA FREEDMAN MD SPECIMEN SUBMITTED [...] from every slide are reviewed by a laborer carpentry dock. CAROLA Jaimes(ASCP) (Electronic Signature) ADDITIONAL PROCEDURE(S) HUMAN [...] developed and its performance characteristics determined by [facility]'s [facility] [place] ([facility]). It has not been cleared or approved by the FDA. [facility] is regulated under CLIA as qualified to perform high-complexity testing. This test is used for clinical purposes. It should not be regarded as investigational or for research. CLINICAL DATA HYSTERECTOMY TOTAL, HPV Testing: Yes, automatic HPV patients over 30 Date of Last Menstrual Period: Hysterectomy STAINS A: VAGINAL VAULT,SCREENING, FLUID THIN PREP THERAPY COORDINATOR Jerardo Ladd M.D., Director Instrumentation Date of Report: 03/07/2019 Date of Procedure: 03/02/2019 Date of Receipt: 03/05/2019 Submitted by: FRANCHESKA FREEDMAN MD [facility] Diagnostic interpretation performed at [facility], [address] [place] [address]. CLIA Number: [id number] The Pap Smear is a screening test for cervical cancer. False negative results occur with all screening tests, emphasizing the need for rescreening at recommended intervals, and clinical correlation. Normal [facility] HPV w/Genotypeon 03-02-2019 HPV HighRisk Other Positive for one or more of the following HPV DNA high risk types: 31,33,35,39,45,51,52,56,5 8,59,66,68 by PCR Critically abnormal [facility] Comment on above: Result Comment: This test was developed and its performance characteristics determined by [facility]'s [facility] [place] ([facility]). It has not been cleared or approved by the FDA. -[facility] is regulated under CLIA as qualified to perform high-complexity testing. This test is used for clinical purposes. It should not be regarded as investigational or for research. Performed By: #### H PVHRR #### [address] [address] HPV HighRisk Type 16 Negative Normal [facility] Comment on above: Performed By: #### H PVHRR #### [address] [address] HPV HighRisk Type 18 Negative Normal [facility] Comment on above: Performed By: #### H PVHRR #### [address] [address] PROGRESSon 03-02-2019 PROGRESS HNO ID: [id number] Author: Francheska Freedman Service: ? Author Type: Physician Type: Progress Notes Filed: 03/04/2019 5:55 PM Note Text: Gynecologic Oncology [facility] Consultation Re: Dinorah Lujan CCF#: [id number] 08/18/2018 PROBLEM: Patient presents for follow up, ASCUS, HPV+ SUBJECTIVE/HPI: Ms Lujan is a 46 year old female with a past medical history of depression, anxiety, HPV+, hx of abnormal paps, s/p TLH bilateral salpingectomy 07/2014 in setting of menorrhagia and failed ablation. Final pathology negative. She presented to [facility]Onc for evaluation and management of LGSIL pap [...] today - Return to follow with her oracle scm consultant if pap is normal - RTC as needed Sincerely, Francheska Freedman MD, MPH 15 min spent with the patient with >505 face to face counseling and care coordination A letter and a copy of this office note were sent to: Dr. Martins CC: Malcom Sloan MD (PCP) Normal [facility] CYTOLOGYon 08-19-2018 CYTOLOGY Specimen originated from [facility] Specimen #: [id number] Submitting Physician: FRANCHESKA FREEDMAN MD SPECIMEN SUBMITTED [...] from every slide are reviewed by a laborer carpentry dock. CAROLA Pelletier(ASCP) (Electronic Signature) CLINICAL DATA ROUTINE EXAM, HPV Testing: No HPV test Date of Last Menstrual Period: Hysterectomy STAINS A: VAGINAL VAULT,SCREENING, FLUID THIN PREP THERAPY COORDINATOR Jerardo Ladd M.D., Director Instrumentation Date of Report: 08/25/2018 Date of Procedure: 08/19/2018 Date of Receipt: 08/21/2018 Submitted by: FRANCHESKA FREEDMAN MD Location: [facility] Diagnostic interpretation performed at [facility], [address] [place] [address]. CLIA Number: [id number] The Pap Smear is a screening test for cervical cancer. False negative results occur with all screening tests, emphasizing the need for rescreening at recommended intervals, and clinical correlation. Normal [facility] CNOVSPon 08-18-2018 CNOVSP Visit (SP) Office (GYNOSA) ----- MILDRED LUJAN ([id number]) 1970 F Date Time Provider Department 08/18/18 10:40 AM FRANCHESKA FREEDMAN During your visit today, we recorded the following information about you: Temperature Pulse Respiration Blood pressure 98.3 degrees 74/minute 18/minute 116/69 Weight Height 71.7 kg 1.702 m Francheska Freedman MD 08/19/2018 11:15 AM Signed Gynecologic Oncology [facility] Consultation Re: Dinorah Lujan CCF#: [id number] 08/18/2018 PROBLEM: Patient presents for follow up, ASCUS, HPV+ SUBJECTIVE/HPI: Ms Lujan is a 46 year old female with a past medical history of depression, anxiety, HPV+, hx of abnormal paps, s/p TLH bilateral salpingectomy 07/2014 in setting of menorrhagia and failed ablation. Final pathology negative. She presented to [facility]/Onc for evaluation and management of LGSIL pap [...] [R87.620, R87.811] Order(s):PAP FLUID VAGINAL VAULT SCREENING [[id number]] Order #: [id number] Disposition: Return in about 6 months (around [...] TABLET Take 40 mg by mouth once anders* Problem List As Of Date: 08/18/2018 (None) Encounter Status:Closed by FRANCHESKA FREEDMAN MD on 08/19/18 Normal [facility] PROGRESSon 08-18-2018 PROGRESS HNO ID: [id number] Author: Francheska Freedman Service: ? Author Type: Physician Type: Progress Notes Filed: 08/19/2018 11:15 AM Note Text: Gynecologic Oncology [facility] Consultation Re: Dinorah Lujan CCF#: [id number] 08/18/2018 PROBLEM: Patient presents for follow up, ASCUS, HPV+ SUBJECTIVE/HPI: Ms Lujan is a 46 year old female with a past medical history of depression, anxiety, HPV+, hx of abnormal paps, s/p TLH bilateral salpingectomy 07/2014 in setting of menorrhagia and failed ablation. Final pathology negative. She presented to [facility]/Onc for evaluation and management of LGSIL pap [...] Martins CC: Malcom Sloan MD (PCP) Normal [facility] CNOVon 01-25-2018 CNOV Office Visit (GYNML) DORISMILDRED ([id number]) 1970 FDate Time Provider Lbhsidauhy21/12/18 9:30 AM FRANCHESKA FREEDMAN GYNML During your visit today, we recorded the following information about you: Temperature Pulse Blood pressure Weight 98.2 degrees 76/minute 132/72 70.3 kgHaiPuri MD 01/25/2018 10:15 AM SignedGynecologic OncologyChildren[facility]ultationRe: [facility] [id number]/12/2018PROBLEM : Patient presents for follow up, ASCUS, HPV+SUBJECTIVE/HPI: Ms Lujan is a 46 year old female with a pastmedical history of depression, anxiety, HPV+, hx of abnormal paps, s/p TLHbilateral salpingectomy 07/2014 in setting of menorrhagia and failed ablation.Final pathology negative. She presented to [facility] Nons[facility]/Onc for evaluation andmanagement of LGSIL pap 11/23/2016, HPV negativePap/bx hx:06/2013 ASCUS, HPV negative08/2015 ASCUS, HPV positive/intermediate10/03 16 colpo negative, no bx03/2016 LSIL.04/2016 colpo negative, [...] and HPV next visit- RTC in 6 moSincerely,Francheska Freedman MD, MPH25 min spent with the [...] by FRANCHESKA FREEDMAN MD on 01/25/18 Normal [facility] PROGRESSon 01-19-2018 Protein mass conc HNO ID: [id number] thor: Francheska Patricioice: (none)Author Type: PhysicianType: Progress NotesFiled: 01/25/2018 10:15 AMNote Text:[facility]necologic OncologyChildren[facility]ConsultationRe: Dinorah [facility]janB[facility]#: [id number]/12/2018PROBLEM : Patient presents for follow up, ASCUS, HPV+SUBJECTIVE/HPI: Ms Lujan is a 46 year old female with a pastmedical history of depression, anxiety, HPV+, hx of abnormal paps, s/p TLHbilateral salpingectomy 07/2014 in setting of menorrhagia and failedablation. Final pathology negative. She presented to [facility]ons[facility]/Onc forevaluation and management of LGSIL pap 11/23/2016, HPV negativePap/bx hx:06/2013 ASCUS, HPV negative08/2015 ASCUS, HPV positive/intermediate10/03 16 colpo negative, no bx03/2016 LSIL.04/2016 colpo negative, no bx11/2016 LSIL, HPV negative07/01 ASCUS HPV negativePRIOR TREATMENT AND DATE:1)07/2014 Hysterectomy, bilateral salpingectomy - pathology negativeHEALTH MAINTENANCE:Last pap: 12/30/2017 ASCUS, HPV+Last mammogram: 10/2016 WNL per ptLast colonoscopy: [place] RNSUBJECTIVE/INTERVAL HISTORY: Mildred Lujan reports that she [...] Pap and HPV next visit- RTC in [address] [place] [address],Francheska Freedman MD, MPH25 min spent with the patient with >505 face to face counseling and carecoordinationA letter and a copy of this office note were sent to:Dr. Avery:Malcom Sloan MD (PCP) [facility] Vital Signs Date Time Vital Sign Value Performing Clinician Faci [facility] 03-24-2023 08:39-0500 Body mass index (BMI) [Ratio] 27.06 kg/m2 Uriel Eliezer DO Work Phone: [facility] 03-24-2023 08:39-0500 Body weight 78.38 kg Uriel Eliezer DO Work Phone: [facility] 03-24-2023 08:39-0500 Diastolic blood pressure 60 mm[Hg] Uriel Eliezer DO Work Phone: [facility] 03-24-2023 08:39-0500 Systolic blood pressure 110 mm[Hg] Uriel Eliezer DO Work Phone: [facility] Encounters Encounter Date Encounter Type Care Provider Facility Start: 05-12-2023 End: 05-12-2023 ambulatory URIEL MARTINS Not Available Start: 03-24-2023 Clinisync Result Encounter Generic External Data Provider [facility] Unsolicited Start: 03-24-2023 Clinisync Result Encounter Generic External Data Provider [facility] External [facility] Unsolicited Start: 03-24-2023 End: 03-24-2023 ambulatory URIEL MARTINS Not Available Start: 03-24-2023 End: 03-24-2023 Patient encounter procedure Uriel Martins DO Work Phone: [facility] Work Phone: Start: 03-24-2023 End: 03-24-2023 Periodic preventive med est patient 40-64yrs Uriel Eliezer DO Work Phone: [facility] Comment on above: Well woman exam with routine gynecological exam; Breast cancer screening by mammogram; Postmenopausal state Start: 03-22-2022 End: 03-22-[address] URIEL MARTINS . Facility: Start: 12-23-2021 End: 12-24-[address] URIEL MARTINS . Facility: Start: 07-16-2021 End: 07-17-[address] URIEL MARTINS . Facility: Start: 01-25-2018 End: 01-25-2018 Patient encounter procedure [facility] Procedures Date Procedure Procedure Detail Performing Clinician Start: 03-24-2023 IGP,APTIMA HPV,AGE GDLN Uriel Martins DO Work Phone: Plan of Treatment Date Care Activity Detail Author Start: 03-29-2024 End: 03-29-2024 Patient encounter procedure 03/29/2024 9:00 AM EST Office Visit [facility] [address] [place] [id number] Uriel Martins DO [address] [place] [address] [facility] Start: 03-24-2023 End: 03-24-2024 DXA Skeletal system Views for bone density DEXA bone density Imaging Routine Postmenopausal state Expected: 03/24/2023 (Approximate), Expires: 03/24/2024 [facility] Comment on above: Expected: 03/24/2023 (Approximate), Expires: 03/24/2024 Start: 03-24-2023 End: 05-22-2024 MG Breast - bilateral Screening Bilateral screening mammogram Imaging Routine Breast cancer screening by mammogram Expected: 03/24/2023, Expires: 05/22/2024 [facility] Work Phone: Comment on above: Expected: 03/24/2023 , Expires: 05/22/2024 THIN PREP TIS PAP AN D HR HPV DNA THIN PREP TIS PAP AND HR HPV DNA Pathology and Cytology Routine Well woman exam with routine gynecological exam Ordered: 03/24/2023 [facility] Comment on above: Ordered: 03/24/2023 Payers Date Payer Category Payer Unknown BCBS BCBS xxxxxx [id number] 2021-Present [phone] [address] [place] [address] [id number] 1970 Unknown [id number] 1970 Unknown [id number] 1970 Unknown [id number] 1970 Unknown [id number] 1970 Unknown [id number] 1957 Unknown [id number] Social History Date Type Detail Facility Start: 07-28-2022 Tobacco smoking stat [facility] Never smoked tobacco [facility] Start: 07-28-2022 Tobacco use and exposure Smokeless t obacco non-user [facility] Start: 03-24-2023 Alcohol intake Current drinke r of alcohol (finding) [facility] Start: 07-28-2022 History of Social function [facility] Start: 07-28-2022 Tobacco use panel [facility] Start: 08-01-2022 Alcohol Comment caffeine 1-2cups/day [facility] Start: 1970 Sex Assigned At Not on file [facility] History of Present illness Narrative 03-24-2023 Uriel Martins DO - 03/24/2023 8:30 AM EST Note Date & Type Note Facility 03-24-2023 History of Presen t illness Narrative Reason for Appointment: Patient ID: Lion Lujan is a 52 y.o. female who presents for Well Women Visit Patient presents today for Annual Exam appointment. Current Medications: has a current medication list which includes the following prescription(s): estradiol, fluoxetine, and metformin xr, and the following Facility-Administered Medications: betamethasone acetate-betamethasone sodium phosphate and lidocaine. Medical History: Active Ambulatory Problems Diagnosis Date Noted No Active Ambulatory Problems Resolved Ambulatory Problems Diagnosis Date Noted No Resolved Ambulatory Problems Past Medical History: Diagnosis Date Abnormal weight gain Allergies Anxiety BMI 25.0-25.9,adult Depression (CMS/HCC) Fatigue H/O abnormal cervical Papanicolaou smear H/O: hysterectomy Hormone imbalance Hot flashes LGSIL Pap smear of vagina Menstrual bleeding problem 2011 Family History Problem Relation Name Age of Onset Mental illness Mother Cancer Mother Heart disease Father Cancer Maternal Grandmother COPD Maternal Grandmother Diabetes Maternal Grandfather Heart disease Maternal Grandfather Mental illness Sibling Social History Tobacco Use Smoking status: Never Smokeless tobacco: Never Vaping Use Vaping Use: Never used Substance Use Topics Alcohol use: Yes Comment: caffeine 1-2cups/day Drug use: Never Past Surgical History: Procedure Laterality Date CHOLECYSTECTOMY 2009 DILATION AND CURETTAGE 1997 ENDOMETRIAL ABLATION 2013 HYSTERECTOMY 2015 IUD INSERTION Allergies Allergen Reactions Sulfa Antibiotics Unknown Sulfanilamide Other Reaction(s): Unknown Review of Systems: Review of Systems All other systems reviewed and are negative. Objective Physical Exam Constitutional: Appearance: Normal appearance. She is well-developed. Genitourinary: Vulva normal. Vaginal cuff intact. Cervix is not absent. Uterus is not absent. Cardiovascular: Rate and Rhythm: Normal rate and regular rhythm. Pulmonary: Effort: Pulmonary effort is normal. Breath sounds: Normal breath sounds. Abdominal: General: Bowel sounds are normal. There is no distension. Palpations: Abdomen is soft. Tenderness: There is no abdominal tenderness. There is no guarding or rebound. Musculoskeletal: General: No swelling. Normal range of motion. Right lower leg: No edema. Left lower leg: No edema. Neurological: Mental Status: She is alert and oriented to person, place, and time. Skin: General: Skin is warm and dry. Psychiatric: Mood and Affect: Mood normal. Behavior: Behavior normal. Vitals and nursing note reviewed. Exam conducted with a stock worker present. Vitals: Estimated body mass index is 27.06 kg/m as calculated from the following: Height as of 07/28/22: 5' 7 . Weight as of this encounter: 172 lb 12.8 oz. BP: 110/60 No LMP recorded. Patient has had a hysterectomy. Assessment/Plan Encounter Diagnoses Name Primary? Well woman exam with routine gynecological exam Breast cancer screening by mammogram Postmenopausal state Patient presents today for an annual exam. Patient states she is doing well and has no complaints. Pap was obtained without difficulty. Follow Up: Patient is to return in one year for annual unless needed otherwise. Documented by Zenia Joshua LPN on behalf of: Uriel Martins DO documented in this encounter [facility] Evaluation note Note Date & Type Note Facility Evaluation note Diagnosis Well woman exam with routine gynecological exam Routine gynecological examination Breast cancer screening by mammogram Postmenopausal state Asymptomatic postmenopausal status (age-related) (natural) documented in this encounter [facility] Summary Purpose Family History No Family History Records FoundNo Family History Records FoundNo Family History Records FoundNo Family History Records Found Advance Directives No Advanced Directives Records FoundNo Advanced Directives Records FoundNo Advanced Directives Records FoundNo Advanced Directives Records Found Additional Source Comments INFORMATION SOURCE (unrecogn ized section and content) DATE CREATED AUTHOR 01/28/2018 [facility] DATE CREATED AUTHOR AUTHOR'S ORGANIZ ATION 03/07/2019 [facility] DATE CREATED AUTHOR AUTHOR'S ORGANIZ ATION 05/04/2022 [facility] DATE CREATED AUTHOR AUTHOR'S ORGANIZ ATION 05/13/2023 [facility] EPIC Reason for Visit (unrecogniz ed section and content) Reason Comments Well Women Visit Care Teams (unrecognized sec tion and content) Nurse'S Aides Teacher Relationship Specialty Start Date End Date Unallocated, [facility] [address] [place] [address] PCP - General 12/09/22 Nurse'S Aides Teacher Relationship Specialty Start Date End Date Unallocated, [facility] Provider [address] [place] [address] PCP - General 12/09/22 FOR RECORDS PERTAINING TO PATIENTS WHO ARE [...] BE BASED ON THE PRIMARY CLINICAL RECORDS. [facility]. provides no warranty or guarantee of the accuracy or completeness of information in this document.
[2023-09-07 04:07] LABS: Progesterone 0.4 ng/mL (.)
[2023-09-08 04:07] LABS: Free Testosterone(Direct) 3.9 pg/mL (0.0-4.2); Testosterone 33 ng/dL (4-50)
[2023-09-10 14:11] LABS: Estrogens, Total 215 pg/mL (.)
== END 2023-09-06 09:09 | disposition home or self-care (01) ==
LOC: LAB 09:09
PROVIDERS: PCP Family Medicine; Visit Provider Obstetrics & Gynecology
DX: E34.9 Endocrine disorder, unspecified (principal)
CPT/HCPCS: 36415; 82627; 82670; 82672; 84144; 84402; 84403

== ENCOUNTER 2024-01-03 09:42 | Outpatient (OUT) | payer BC, SELFPAY ==
--- NOTE | 2024-01-03 09:46 | MM_ITS ---
Patient Name: EFRAIN GEORGE MR#: [id number] : 1970 Exam Date: 01/03/2024 Ordering Doctor: DR URIEL MYRICK . RADIOLOGY REPORT PROCEDURE: MM TOMOSYNTHESIS SCREENING BI COMPARISON: MG MAMM SCREEN 3D LETITIA CAD, 12/23/2021. MM TOMOSYNTHESIS SCREENING BI, 12/27/2022. INDICATIONS: Screening Calculator Name NCI Breast Cancer Risk Assessment Tool 5 Year Breast Cancer Risk 1.10% Lifetime Breast Cancer Risk 9.70% Personal Breast Cancer No Personal Ovarian Cancer No Treatments None Family Cancers None LOCATION: [facility] BREAST COMPOSITION: The breasts are heterogeneously dense,which may obscure small masses. FINDINGS: DIAGNOSTIC CATEGORY 1--NEGATIVE. NO CHANGE FROM COMPARISON ASSESSMENT. RIGHT BREAST: No significant suspicious finding. LEFT BREAST: No significant suspicious finding. RECOMMENDATIONS: ROUTINE MAMMOGRAM AND CLINICAL EVALUATION IN 12 MONTHS. PLEASE NOTE: A NORMAL MAMMOGRAM DOES NOT EXCLUDE THE POSSIBILITY OF BREAST CANCER. A CLINICALLY SUSPICIOUS PALPABLE LUMP SHOULD BE BIOPSIED. Dictated by: Carlton Garrett MD on 01/04/2024 at 08:18 Approved by: Carlton Garrett MD on 01/04/2024 at 08:19
--- NOTE | 2024-01-03 09:46 | XR_ITS ---
The [address] [address] Patient Name: EFRAIN GEORGE MRN: [id number] date: 1970 Sex: F Assigned Patient Location: [facility] Current Patient Location: Accession/Order Number: [id number] Exam Date: 01/03/2024 10:35 Report Date: 01/04/2024 03:53 At the request of: URIEL MYRIKC Procedure: XR DEXA axial skeleton EXAMINATION: XR DEXA axial skeleton HISTORY: Postmenopausal State COMPARISON: No relevant comparison available. TECHNIQUE: Dual-energy X-ray absorptiometry (DXA) was performed. FINDINGS: SPINE ANALYSIS: Average bone mineral density is 1.4-5 g/cm2. T-score (standard deviation relative to young adult mean): 2.0 . HIP ANALYSIS: Lowest bone mineral density is within the right femoral neck, 0.874 g/cm2. T-score (standard deviation relative to young adult mean): -1.2 . XR/XR DEXA axial skeleton IMPRESSION: World Health Organization Classification: Osteopenia - Moderate Fracture Risk FRAX: Cannot be calculated. Pharmacologic treatment recommendations * No uniform recommendation applies to all patients. Management plans must be individualized. * Consider initiating pharmacologic treatment in postmenopausal women and men >= 50 years of age who have the following: Primary fracture prevention: * T-score <= - 2.5 at the femoral neck, total hip, lumbar spine, 33% radius (some uncertainty with existing data) by DXA. * Low bone mass (osteopenia: T-score between - 1.0 and - 2.5) at the femoral neck or total hip by DXA with a 10-year hip fracture risk >= 3% or a 10-year major osteoporosis-related fracture risk >= 20% (i.e., clinical vertebral, hip, forearm, or proximal humerus) based on the US-adapted FRAXregistered model. Secondary fracture prevention: * Fracture of the hip or vertebra regardless of BMD [4, 5]. * Fracture of proximal humerus, pelvis, or distal forearm in persons with low bone mass (osteopenia: T-score between - 1.0 and - 2.5). The decision to treat should be individualized in persons with a fracture of the proximal humerus, pelvis, or distal forearm who do not have osteopenia or low BMD [12, 13]. Jani MS, Vera SL, Juan KL, Mychal EM, Ginger KG, AJ, Jayy ES. The clinician's guide to prevention and treatment of osteoporosis. Osteoporos Int. 2021;33(10):5915-7043. doi: 10.1007/c86576-783-71459-f. Epub 2021Jun 11. Erratum in: Osteoporos Int. 2021Sep 10;: PMID: 35145401; PMCID: [id number]. Electronically authenticated by: SUSI RAMOS Date: 01/04/2024 03:53
== END 2024-01-03 09:43 | disposition home or self-care (01) ==
LOC: RAD 09:42
PROVIDERS: PCP Family Medicine; Visit Provider Obstetrics & Gynecology
DX: Z12.31 Encounter for screening mammogram for malignant neoplasm of breast (principal); Z78.0 Asymptomatic menopausal state; M85.80 Other specified disorders of bone density and structure, unspecified site
CPT/HCPCS: 77063; 77067; 77080

== ENCOUNTER 2024-04-30 14:49 | Outpatient (REF) | payer BC, SELFPAY | END 2024-04-30 14:50 | disposition home or self-care (01) | LOC: LAB 14:49 | PROVIDERS: PCP Family Medicine; Visit Provider Obstetrics & Gynecology | DX: Z01.419 Encounter for gynecological examination (general) (routine) without abnormal findings (principal) | CPT/HCPCS: 87624; 88175 ==

== ENCOUNTER 2025-01-04 07:26 | Outpatient (OUT) | payer BC, SELFPAY ==
--- NOTE | 2025-01-04 07:28 | MM_ITS ---
Patient Name: EFRAIN GEORGE MR#: [id number] : 1970 Exam Date: 01/04/2025 Ordering Doctor: DR URIEL MYRICK . RADIOLOGY REPORT PROCEDURE: MM TOMOSYNTHESIS SCREENING BI COMPARISON: MM TOMOSYNTHESIS SCREENING BI, 01/03/2024. MM TOMOSYNTHESIS SCREENING BI, 12/27/2022. MG MAMM SCREEN 3D LETITIA CAD, 12/23/2021. MG MAMM LETITIA SCRN W CAD DIG, 01/05/2008. INDICATIONS: Screening Calculator Name NCI Breast Cancer Risk Assessment Tool 5 Year Breast Cancer Risk 1.20% Lifetime Breast Cancer Risk 9.60% Personal Breast Cancer No Personal Ovarian Cancer No Treatments None Family Cancers None LOCATION: [facility] BREAST COMPOSITION: The breasts are heterogeneously dense, which may obscure small masses. FINDINGS: RIGHT BREAST: No significant suspicious finding. LEFT BREAST: No significant suspicious finding. DIAGNOSTIC CATEGORY 1--NEGATIVE. NO CHANGE FROM COMPARISON ASSESSMENT. RECOMMENDATIONS: ROUTINE MAMMOGRAM AND CLINICAL EVALUATION IN 12 MONTHS. Dictated by: Casper Mims MD on 01/04/2025 at 12:12 Approved by: Casper Mims MD on 01/04/2025 at 12:33
--- OUTSIDE RECORDS SUMMARY | 2025-01-04 07:28 | XMS_ITS | Clinical Summary ---
Author Organization [facility] Address [address] [place] [address] Care Team Providers Care Culinary Artist Name Role Phone Malcom Sloan MD Primary Care Provider [phone] Allergies Active AllergyReactionsCriticalityNoted DateCommentsSulfa (Sulfonamide Antibiotics)Ikqltjtphcw34/26/2017 Medications MedicationSigDispense QuantityRefillsLast FilledStart DateEnd DateStatus citalopram (CELEXA) 40 mg tablet Take 40 mg by mouth once daily.Active mv,Ca,min/iron/FA/guarana/caff (ONE-A-DAY WOMEN'S ACTIVE ORAL) Take by mouth.Active loratadine (CLARITIN ORAL) Take by mouth.Active calcium carbonate/vitamin D3 (CALCIUM + D ORAL) Take by mouth.Active buPROPion SR (WELLBUTRIN SR) 100 mg 12 hr tablet Take 100 mg by mouth daily at bedtime.Active buPROPion SR (ZYBAN SR; WELLBUTRIN SR) 150 mg 12 hr tablet Take 150 mg by mouth every morning.Active Active Problems No known active problems Family History Medical HistoryRelationCommentshealthyBrotherhealthyFatherDiabetesMaternal Grandfathertype IIheart diseaseMaternal GrandfatherCOPDMaternal Grandmotherlung cancerMaternal GrandmotherdepressionMotherkidney cancerMotherAlzheimer's Disease Paternal GrandfatherdepressionSisterhealthySisterRelationStatusCommentsBrother AliveFatherAliveMaternal GrandfatherDeceasedMaternal GrandmotherDeceasedMother AlivePaternal GrandfatherDeceasedPaternal GrandmotherDeceasedSisterAlive Social History Tobacco UseTypesPacks/DayYears UsedDateSmoking Tobacco: NeverSmokeless Tobacco: NeverAlcohol UseStandard Drinks/WeekCommentsYes0 (1 standard drink = 0.6 oz pure alcohol)Area Deprivation IndexAnswerDate RecordedNational Score (1-100), lower number is lower riskNot on file01/24/2020State Score (1-10), lower number is lower riskNot on file01/24/2020Data from: https://www.neighborhoodatlas.medicine.[facility].edu/. Last address used for calculationNot on file01/24/2020CommentsNoSex and Gender Information ValueDate RecordedSex Assigned at BirthNot on fileLegal ZyjFmoujt94/20/2017 3:15 PM EDTGender IdentityNot on fileSexual OrientationNot on fileOccupationIndustry Job Start DateJob End Datefull time school systemNot on fileNot on fileNot on file Last Filed Vital Signs Vital SignReadingTime TakenCommentsBlood Faecxyxz573/76003/02/2019 9:49 AM EST Nmwwc450703/02/2019 9:49 AM XWUBppqiayhtgv13.7 ??C (98.1 ??F)03/02/2019 9:49 AM ESTRespiratory Ysym771603/02/2019 9:49 AM ESTOxygen Amsmiiuggk861%03/02/2019 9:49 AM ESTInhaled Oxygen Concentration--Gadqcy16.8 kg (153 lb 12.8 oz)03/02/2019 9:49 AM CRDEacatc704.2 cm (5' 7.01 )03/02/2019 9:49 AM ESTBody Mass Index24.08 03/02/2019 9:49 AM EST Plan of Treatment Health MaintenanceDue DateLast DoneCommentsAnxiety Trsdqdnpp46/13/1991Depression Pfjmwmeyy14/13/1991HIV Iodscqwmi30/13/1991Hepatitis C Nhkloecgb64/13/1991 DTaP,Tdap,Td Vaccine (1 - Tdap)09/27/1991Hepatitis B Vaccine (1 of 3 - 19+ 3- dose series)09/27/1991Mammogram Qmunkkcls51/13/2013CT Ikfieghwmqel07/13/2018 Cologuard (FIT-DNA)09/26/20170970Njdcupkvdeh23/13/2018Colorectal Cancer Screening 2017Diabetes Haijhgvxe54/13/2018Fecal Occult Blood2017Lipid Dxrozdmqf87/13/9381Akpgzqbeicwnr24/13/2018Cervical Cancer Mtfjmpwmb38/17/2023 03/02/2019, 03/02/2019, 08/19/2018, Additional history existsPneumococcal Vaccine: 50+ (1 of 1 - PCV)2022Shingrix Vaccine (1 of 2)2022ovid-19 Vaccine (1 - season)2024Influenza Vaccine (#1)2024 Procedures Procedure NamePriorityDate/TimeAssociated DiagnosisCommentsPAP FLUID VAGINAL VAULT ZEKGPXCNVLadnbkj53/17/2020 10:19 AM EST Atypical squamous cell changes of undetermined significance (ASCUS) on vaginal cytology with positive high risk human papilloma virus (HPV) from Last 3 Months or Most Recently Relevant to Health Maintenance Results * PAP FLUID VAGINAL VAULT SCREENING (03/02/2019 10:19 AM EST)ComponentValueRef RangeTest MethodAnalysis TimePerformed AtPathologist SignatureTranscription ADDITIONAL PROCEDURES PRESENT Specimen originated from [facility] Specimen #: [id number] Submitting Physician: FRANCHESKA SQUIRES MD SPECIMEN SUBMITTED A: VAGINAL VAULT,SCREENING, FLUID FINAL DIAGNOSIS A. VAGINAL VAULT,SCREENING, FLUID Satisfactory for interpretation. Limited cellularity. Negative for intraepithelial lesion or malignancy. Predominance of coccobacilli consistent with shift in vaginal darvin. This specimen has been analyzed by the ThinPrep Imaging System, an automated imaging and review system, which assists the laboratory in evaluating cells on ThinPrep Pap tests. ??Following automated imaging, selected cha from every slide are reviewed by a home theater expert. CAROLA Jaimes(ASCP) ? (Electronic Signature) ADDITIONAL PROCEDURE(S) HUMAN PAPILLOMA VIRUS ? Date Ordered: ??03/05/2019 ? Date Reported: ??03/06/2019 Procedure Results and Interpretation Negative for HPV DNA high risk type 16 by PCR. Negative for HPV DNA high risk type 18 by PCR. Positive for one or more of the following HPV DNA high risk types: 31,33,35,39,45,51,52,56,58,59,66,68 by PCR(*) This test was developed and its performance characteristics determined by [facility]'s [facility] [place] ([facility]). It has not been cleared or approved by the FDA. [facility] is regulated under CLIA as qualified to perform high-complexity testing. This test is used for clinical purposes. It should not be regarded as investigational or for research. CLINICAL DATA HYSTERECTOMY TOTAL, HPV Testing: Yes, automatic HPV patients over 30 Date of Last Menstrual Period: Hysterectomy STAINS A: ??VAGINAL VAULT,SCREENING, FLUID ? THIN PREP TURBINATED BONE GRINDER Jerardo Ladd M.D., Lending Manager Date of Report: 03/07/2019 Date of Procedure: 03/02/2019 Date of Receipt: 03/05/2019 Submitted by: FRANCHESKA SQUIRES MD Location: [facility] Diagnostic interpretation performed at [facility], [address] [place] [address]. ?? CLIA Number: [id number] ? The Pap Smear is a screening test for cervical cancer. False negative results occur with all screening tests, emphasizing the need for rescreening at recommended intervals, and clinical correlation.COPATHPLUS Specimen (Source)Anatomical Location / LateralityCollection Method / Volume Collection TimeReceived TimeVaginal swab (specimen)VAGINAL SWAB / Unknown 03/02/2019 10:19 AM EST03/05/2019 3:16 PM EST Narrative Authorizing ProviderResult TypeResult StatusRoberta FOURNIER-CCYTOLOGYEdited Result - FinalPerforming OrganizationAddressCity/State/ZIP CodePhone Number [facility] [address] [place] [phone] from Last 3 Months or Most Recently Relevant to Health Maintenance Insurance MemberSubscriberPlan / Payer (Effective 2016-Present)Name: RODRÍGUEZ LUJAN Relation to Subscriber:SpouseName:CAM LUJAN Date of :1973 (Home) Address: [address] [place] [address] Payer ID:[id number] (NAIC) Type:PPO Address: [facility] [id number] [place] [id number] Care Teams Team MemberRelationshipSpecialtyStart DateEnd Date Malcom Sloan MD [address] [place] [address] PCP - GeneralFamily Psuyyvyd01/20/17
--- OUTSIDE RECORDS SUMMARY | 2025-01-04 07:28 | XMS_ITS | Encounter Summary ---
Author Organization [facility] Address [address] [place] [address] Care Team Providers Care Pre Kindergarten Teacher Name Role Phone Cynthia Torres WINDOW AND DOOR INSTALLER Unavailable [phone] Reason for Visit * ReasonOnset DateCommentsMed Vrsxmr0112/26/2024 Encounter Details DateTypeDepartmentCare Team (Latest Contact Info)Zeuprijuxfb83/12/2025Refill [facility] [address] [place] [address] Randy Martins DO [address] [place], [place] [address] Menopausal vasomotor syndrome Social History Tobacco UseTypesPacks/DayYears UsedDateSmoking Tobacco: NeverSmokeless Tobacco: NeverAlcohol UseStandard Drinks/YnlzIiwnckkdUpm64 (1 standard drink = 0.6 oz pure alcohol)caffeine 1-2cups/dayCommentsNoSex and Gender Information ValueDate RecordedSex Assigned at BirthNot on fileLegal VnaOwqnll35/15/2023 7:00 PM EDTGender IdentityNot on fileSexual OrientationNot on filedocumented as of this encounter Plan of Treatment DateTypeDepartmentCare Team (Latest Contact Info)Lrbmurkxxuh20/23/2026 10:00 AM EDTOffice Visit [facility] [address] [place] [address] Randy Martins, DO [address], [facility] documented as of this encounter Visit Diagnoses Diagnosis Menopausal vasomotor syndrome documented in this encounter Care Teams Team MemberRelationshipSpecialtyStart DateEnd Date Cynthia Torres NP [address] [place] [id number] KIKI - Nelda Rodriguez06/14/24documented as of this encounter
--- OUTSIDE RECORDS SUMMARY | 2025-01-04 07:29 | XMS_ITS | Clinical Summary ---
Author Organization [facility] Address [id number] [address] [place] [address] Care Team Providers Care Cube Cutter Name Role Phone Malcom Sloan MD Primary Care Provider [phone] Allergies Active AllergyReactionsCriticalityNoted DateCommentsSulfa (Sulfonamide Antibiotics)NquaGcc1205/11/2024 Medications MedicationSigDispense QuantityRefillsLast FilledStart DateEnd DateStatus FLUoxetine (PROzac) 20 mg capsule Take 1 capsule (20 mg total) by mouth in the morning.Active estradioL (CLIMARA) 0.025 mg/[address] 1 patch on the skin once a week.ctive cholecalciferol, vitamin D3, (VITAMIN D3) 5,000 units tablet Take 1 tablet (5,000 Units total) by mouth in the morning.Active cyanocobalamin (vitamin B-12) 1000 MCG tablet Take 1 tablet (1,000 mcg total) by mouth in the morning.Active flaxseed oiL oil by miscellaneous route.Active cetirizine (24HOUR ALLERGY) 10 mg tablet Take 1 tablet (10 mg total) by mouth in the morning.Active ELDERBERRY FRUIT ORAL Take by mouth.Active NON FORMULARY Med Name: Cory probiotic and prebioticActive ashwagandha root extract 300 mg tablet Take by mouth in the morning.Active DORA ROOT EXTRACT ORAL Take by mouth in the morning.Active black cohosh 540 mg capsule Take by mouth in the morning.Active magnesium oxide (MAGOX) 400 mg tablet Take 2 tablets (800 mg total) by mouth in the morning.Active Active Problems No known active problems Family History Medical HistoryRelationNameCommentsHeart diseaseFatherpacemakerKidney cancer MotherRelationNameStatusCommentsFatherAliveMotherAlive Social History Tobacco UseTypesPacks/DayYears UsedDateSmoking Tobacco: NeverSmokeless Tobacco: Never Tobacco Cessation:Counseling Given: Not Answered Alcohol UseStandard Drinks/WeekCommentsYes0 (1 standard drink = 0.6 oz pure alcohol)socialCommentsNoSex and Gender InformationValueDate RecordedSex Assigned at BirthNot on fileLegal MwiPjrzdk30/02/2024 10:48 AM EDTGender IdentityNot on fileSexual OrientationNot on file Last Filed Vital Signs Vital SignReadingTime TakenCommentsBlood Retqdfxw596/70005/31/2024 9:19 AM EDT Ilozp517505/31/2024 9:19 AM GCKPrjalwjbwbz49.9 ??C (98.4 ??F)05/31/2024 7:59 AM EDTRespiratory Yjeo651805/31/2024 9:19 AM EDTOxygen Duzozrmilj640%05/31/2024 9:19 AM EDTInhaled Oxygen Concentration--Ghbylj19.7 kg (158 lb)05/31/2024 7:59 AM EDT Kmdslh425.2 cm (5' 7 )05/31/2024 7:59 AM EDTBody Mass Index24.75005/31/2024 7:59 AM EDT Plan of Treatment Health MaintenanceDue DateLast DoneCommentsDepression Owksubdld56/13/1985 DTaP,Tdap and Td Vaccines (1 - Tdap)09/27/1991Zoster (Shingles) Vaccine (1 of 2) 2022Influenza Pouqhvi4710/15/2024dult BMI Hdfxtjmsy25 Tobacco Lmyyzasqg15olonoscopy, 05/31/2024 Pap QgkuyZsqzsfzskfqj13/17/2025, 03/24/2023 Medical Devices Not on file Procedures Procedure NamePriorityDate/TimeAssociated DiagnosisCommentsPROVATION COLONOSCOPY Ibyezoc5605/31/2024 7:45 AM EDT from Last 3 Months or Most Recently Relevant to Health Maintenance Results * Colonoscopy Report (05/31/2024 7:45 AM EDT)Specimen (Source)Anatomical Location / LateralityCollection Method / VolumeCollection TimeReceived Time Narrative SYSTEMGENERATED, DOCUMENTATION - 05/31/2024 7:45 AM EDT This order has been auto-finalized for image and report archival in PACs. *For full report details, please reach out to your physician. ??This image is visible to you in MyChart.* Authorizing ProviderResult TypeResult StatusMichael E Grillis DOIMG OR IMG ORDERABLESFinal Result from Last 3 Months or Most Recently Relevant to Health Maintenance Insurance Care Teams Team MemberRelationshipSpecialtyStart DateEnd Date [place] [address] [place] [address] PCP - GeneralFamily Medicine05/11/24
--- OUTSIDE RECORDS SUMMARY | 2025-01-04 07:29 | XMS_ITS | Clinical Summary ---
Author Organization [facility] Address [address] [place] [address] Care Team Providers Care Multicraft Operator Name Role Phone Cynthia Torres SOFTBALL COACH Unavailable [phone] Allergies Active AllergyReactionsCriticalityNoted DateCommentsSulfa AntibioticsUnknown 12/09/20167031Jfxmwlesjpvvd83/14/2023 Other Reaction(s): Unknown Medications MedicationSigDispense QuantityRefillsLast FilledStart DateEnd DateStatus loratadine (Claritin Reditabs) 5 MG tablet dispersible dissolvable tablet Take by mouthActive FLUoxetine (PROzac) 20 MG capsule Indications:Mood changesTake 1 capsule (20 mg) by mouth Daily 90 capsule 309/509/6Active estradiol (Climara) 0.025 MG/24HR Indications:Menopausal vasomotor syndromePlace 1 patch over 7 days on the skin 1 (one) time per week 12 patch 311/13/861831/6Active estradiol (Climara) 0.025 MG/24HR Indications:Menopausal vasomotor syndromePlace 1 patch over 7 days on the skin 1 (one) time per week 12 patch 308/20/779407/01/2025Discontinued(Reorder)Hospital, Clinic, or Other Facility Administered MedicationOrdered DoseRouteFrequencyStart DateEnd DateStatus lidocaine (Xylocaine) 1 % injection 5 mg Indications:Lateral epicondylitis of right elbow5 ikMWVqft13/14/2023ctive betamethasone acetate-betamethasone sodium phosphate (Celestone) injection 6 mg Indications:Lateral epicondylitis of right elbow6 mgINTRA-OZMAIPMthk00/14/2023 Active Active Problems ProblemNoted DateDiagnosed DateYeast /16/2025bnormal weight gain 11/14/2023nogenital warts11/14/20231741Phyrfmb08/30/2024isorder of endocrine tobqeb8411/14/20230842Vhiextp86/30/2024History of zwepkrzgfkfa25/30/2024Hot flashes due to bxktbqaqc72/30/1584Hqlzrwnnny03/30/2024apanicolaou smear of vagina with low grade squamous intraepithelial lesion (LGSIL)11/14/2023 Encounters DateTypeDepartmentCare LoxmOxahsjhjgzi79/12/2025Refill [facility] [address] [place] [address] Randy Martins DO Menopausal vasomotor qztkeztr95/07/2025Refill [facility] [address] [place] [address] Randy Martins DO Mood changesfrom Last 3 Months Family History Medical HistoryRelationNameCommentsHeart diseaseFatherDiabetesMaternal GrandfatherJayHeart diseaseMaternal GrandfatherJayCOPDMaternal Grandmother ShirleyCancerMaternal GrandmotherShirleyCancerMotherShirleyMental illnessMother ShirleyMental illnessSiblingRelationNameStatusCommentsFatherAliveMaternal GrandfatherJayMaternal GrandmotherShirleyMotherShirleyAliveSiblingAlive Social History Tobacco UseTypesPacks/DayYears UsedDateSmoking Tobacco: NeverSmokeless Tobacco: Never Tobacco Cessation:Counseling Given: Not Answered Alcohol UseStandard Drinks/LsydHyknlaxlYql91 (1 standard drink = 0.6 oz pure alcohol)caffeine 1-2cups/dayCommentsNoSex and Gender InformationValue Date RecordedSex Assigned at BirthNot on fileLegal DmwWjoont20/15/2023 7:00 PM EDTGender IdentityNot on fileSexual OrientationNot on file Last Filed Vital Signs Vital SignReadingTime TakenCommentsBlood Siessdvi719/70004/30/2024 9:55 AM EDT Kcvic497111/14/2023 9:51 AM BYYOrszyvgbexm12.5 ??C (97.7 ??F)07/28/2022 8:46 AM EDTRespiratory Irqq954811/14/2023 9:51 AM EDTOxygen Saturation--Inhaled Oxygen Concentration--Ahpaxq36.7 kg (158 lb)04/30/2024 9:55 AM HPEOyjkbr490.2 cm (5' 7 )11/14/2023 9:51 AM EDTBody Mass Index24.75011/14/2023 9:51 AM EDT Plan of Treatment DateTypeDepartmentCare Team (Latest Contact Info)Qdoivalhhxx86/23/2026 10:00 AM EDTOffice Visit [facility] [address] [place] [phone] Randy Martins DO [address] [place] [address] Health MaintenanceDue DateLast DoneCommentsCT Vostaubhldrf12/13/1973FIT-DNA 1972FIT1972FOBT1972 2711Fbkygvdwskkom42/13/1973COVID-19 Vaccine ( season)2024Influenza Vaccine (#1)10/15/20240966Uaybfexuh52/20/2025 01/04/2024, 12/28/2022, 03/22/2022, Additional history existsColonoscopy 5005/31/2024, 5Colorectal Cancer Wqlqfobmc16/17/2035HPV/Cotest Poxjhsqlfwpo37/17/2020, 12/30/2017, 06/17/2017Cervical Cancer Screening DiscontinuedPap TzvamPsdcqmwdcrer22/17/2025, 4Pneumococcal Vaccine: Pediatrics (0 to 5 Years) and At-Risk Patients (6 to 64 Years)Aged OutNo longer eligible based on patient's age to complete this topic Procedures Procedure NamePriorityDate/TimeAssociated DiagnosisCommentsPAP SMEARRoutine 04/30/2024 12:00 AM EDTMM TOMOSYNTHESIS SCREENING BI01/04/2024 8:20 AM EST from Last 3 Months or Most Recently Relevant to Health Maintenance Results * Pap Smear (04/30/2024 12:00 AM EDT)Specimen (Source)Anatomical Location / LateralityCollection Method / VolumeCollection TimeReceived TimeSwabCervical swab / Unknown Narrative Authorizing ProviderResult TypeResult StatusCorey Eliezer DOLAB CYTOLOGY ORDERABLESFinal ResultPerforming OrganizationAddressCity/State/ZIP CodePhone Number EXTERNAL LAB * MM TOMOSYNTHESIS SCREENING BI (01/04/2024 8:20 AM EST)Anatomical Region LateralityModalityOtherSpecimen (Source)Anatomical Location / Laterality Collection Method / VolumeCollection TimeReceived Time01/04/2024 8:20 AM EST Narrative 01/04/2024 8:20 AM EST [facility] ?[address] ? [place] [address] ? Mammography Report ? Signed ? Patient: EFRAIN LUJAN ?MR#: [id number] ?? : 1970 ?Acct:[id number] ?? Age/Sex: 53 / F ?ADM Date: 01/03/24 ?? Loc: RAD ? Attending Dr: Randy Martins D.O. ? Ordering Physician: Randy Martins D.O. ?Results: ? Date of Service: 01/03/24 ?Follow Up: ? Procedure(s): MM tomosynthesis screening BI ?? Accession Number(s): [id number] ? cc: CHICHI DOLOEY ; Randy Martins D.O. ? Patient Name: ? EFRAIN LUJAN ? MR#: [id number] ? : 1970 ? Exam Date: 01/03/2024 ?? Ordering Doctor: DR RANDY MARTINS . ? RADIOLOGY REPORT ? PROCEDURE: ? MM TOMOSYNTHESIS SCREENING BI ? COMPARISON: ? MG MAMM SCREEN 3D LETITIA CAD, 12/23/2021. ??MM TOMOSYNTHESIS ?? SCREENING BI, 12/27/2022. ? INDICATIONS: ? Screening ? Calculator Name ? NCI Breast Cancer Risk Assessment Tool ?? 5 Year Breast Cancer Risk ? 1.10% ?? Lifetime Breast Cancer Risk ? 9.70% ?? Personal Breast Cancer ?No ?? Personal Ovarian Cancer ? No ?? Treatments ? None ?? Family Cancers ? None ? LOCATION: ? [facility] ? BREAST COMPOSITION: ? The breasts are heterogeneously dense,which may ?? obscure small masses. ? FINDINGS: ? DIAGNOSTIC CATEGORY 1--NEGATIVE. NO CHANGE FROM COMPARISON ASSESSMENT. ? RIGHT BREAST: ??No significant suspicious finding. ? LEFT BREAST: ??No significant suspicious finding. ? RECOMMENDATIONS: ? ROUTINE MAMMOGRAM AND CLINICAL EVALUATION IN 12 MONTHS. ? PLEASE NOTE: ??A NORMAL MAMMOGRAM DOES NOT EXCLUDE THE POSSIBILITY OF BREAST ?? CANCER. ??A CLINICALLY SUSPICIOUS PALPABLE LUMP SHOULD BE BIOPSIED. ? Dictated by: Carlton Garrett MD on 01/04/2024 at 08:18 ? Approved by: Carlton Garrett MD on 01/04/2024 at 08:19 ? Dictated By: ?Carlton Garrett M.D. ? Signed By: ?01/04/24 0820 ? DD/ 0820 ? TD/TT: ? Cable Tender: Procedure Note Radiology, Radiologist, MD - 01/04/[address] [address] Mammography Report Signed Patient: EFRAIN LUJAN AMR#: [id number] : 1970Acct:[id number] Age/Sex: 53 / FADM Date: 01/03/24 Loc: RAD Attending Dr: Randy Martins D.O. Ordering Physician: Randy Martins D.O.Results: Date of Service: 01/03/24Follow Up: Procedure(s): MM tomosynthesis screening BI Accession Number(s): [id number] cc: CHICHI DOOLEY ; Randy Martins D.O. Patient Name: EFRAIN LUJAN MR#: [id number] : 1970 Exam Date: 01/03/2024 Ordering Doctor: DR RANDY MARTINS . RADIOLOGY REPORT PROCEDURE: MM TOMOSYNTHESIS SCREENING BI COMPARISON: MG MAMM SCREEN 3D LETITIA CAD, 12/23/2021. MM TOMOSYNTHESIS SCREENING BI, 12/27/2022. INDICATIONS: Screening Calculator Name NCI Breast Cancer Risk Assessment Tool 5 Year Breast Cancer Risk 1.10% Lifetime Breast Cancer Risk 9.70% Personal Breast Cancer No Personal Ovarian Cancer No Treatments None Family Cancers None LOCATION: [facility] BREAST COMPOSITION: The breasts are heterogeneously dense,which may obscure small masses. FINDINGS: DIAGNOSTIC CATEGORY 1--NEGATIVE. NO CHANGE FROM COMPARISON ASSESSMENT. RIGHT BREAST: No significant suspicious finding. LEFT BREAST: No significant suspicious finding. RECOMMENDATIONS: ROUTINE MAMMOGRAM AND CLINICAL EVALUATION IN 12 MONTHS. PLEASE NOTE: A NORMAL MAMMOGRAM DOES NOT EXCLUDE THE POSSIBILITY OFBREAST CANCER. A CLINICALLY SUSPICIOUS PALPABLE LUMP SHOULD BE BIOPSIED. Dictated by: Carlton Garrett MD on 01/04/2024 at 08:18 Approved by: Carlton Garrett MD on 01/04/2024 at 08:19 Dictated By: Carltno Garrett M.D. Signed By:01/04/24819 DD/ 9 TD/TT: Cable Tender: Authorizing ProviderResult TypeResult StatusGeneric External Data Provider CLINISYNC IMAGINGFinal Result from Last 3 Months or Most Recently Relevant to Health Maintenance Insurance * Guarantor: Christine Lujanhryn AAccount TypeRelation to PatientDate of PhoneBilling AddressPersonal/GpdpqyJeji52/ [address] [address] * Guarantor: Heath Lujan TypeRelation to PatientDate of PhoneBilling AddressPersonal/AyixyxQimdha90/[birth year][address] [address] Care Teams Team MemberRelationshipSpecialtyStart DateEnd Date Cynthia Torres NP [address] [place] [address] [place] [phone] KIKI Rodriguez06/14/24
--- OUTSIDE RECORDS SUMMARY | 2025-01-04 07:33 | XMS_ITS | CCD ---
Author Organization [facility] Care Team Providers Care Restaurant Management Internship Name Role Phone FRANCHESKA FREEDMAN Unavailable Unavailable ELIEZER ., DR TREVINO Admitting Unavailable ELIEZER ., DR TREVINO Attending Unavailable SOUMYA, DR CADET Primary Care Unavailable ELIEZER ., DR TREVINO Consulting Unavailable ELIEZER ., DR TREVINO Admitting Unavailable ELIEZER ., DR TREVINO Attending Unavailable TUSKAHOMA, DR TRESA Anand Consulting Unavailable SOUMYA, DR CADET Primary Care Unavailable ELIEZER ., DR TREVINO Consulting Unavailable ELIEZER ., DR TREVINO Consulting Unavailable ELIEZER ., DR TREVINO Admitting Unavailable SOUMYA, DR CADET Primary Care Unavailable ELIEZER ., DR TREVINO Attending Unavailable Unallocated, Noms Provider Primary Care Provider Chichi Dooley MD Primary Care Provider Unavailable Primary Care Provider UnavailRANDY Wade Attending Unavailable RANDY MARTINS Attending Unavailable ELAINE CARMICHAEL Attending Unavailable CHICHI DOOLEY Referring Unavailable CHICHI DOOLEY Primary Care Unavailable MICHAEL HINSON Admitting Unavailable MICHAEL HINSON Attending Unavailable MICHAEL HINSON Referring Unavailable CHICHI DOOLEY Primary Care Unavailable Melissa ACTIVITY SPECIALIST, Cynthia Unavailable Allergies Allergy ClassificationReported Allergen(s)Allergy TypeDate of OnsetReaction(s) Facility (2 sources)Sulfonamides (Antibiotic); Translations: [SULFA (SULFONAMIDE ANTIBIOTICS)]Propensity to adverse reactions to drug (disorder)92-01-6825[facility] Repository (1 source)Sulfonamides (Antibiotic)Drug allergy (disorder)51-28-3148[facility] (12 sources)SulfanilamideAllergy to yntputema02-41-7592XNOT Healthcare (12 sources)Sulfonamides (Antibiotic)Drug Jniasdi31-40-7279FvmztdrNTWF Healthcare Work Phone: Medications Current Medications MedicationDrug Class(es)DatesSig (Normalized)Sig (Original)azithromycin 250 mg oral tablet (1 source)Macrolide AntimicrobialStart: 04-13-2024 End: 73-04-3171naok 1 tablet by mouth once dailyazithromycin (Zithromax) 250 MG tablet Indications: Acute bronchitis, unspecified organism Take 1 tablet (250 mg) by mouth Daily for 5 days 6 tablet 04/13/2024 04/18/2024 Activebetamethasone 3 mg/ml / betamethasone acetate 3 mg/ml injectable suspension (12 sources)CorticosteroidStart: 43-04-7213umunsvyzskyuk acetate-betamethasone sodium phosphate (Celestone) injection 6 mg168 hr estradiol 0.06367 mg/hr transdermal system (9 sources)EstrogenStart: 04-30-2024 End: 69-51-6045ojwhmnzhs (Climara) 0.025 MG/24HR Indications: Menopausal vasomotor syndrome Place 1 patch over 7 days on the skin 1 (one) time per week 12 patch 3 04/30/2024 04/30/2025 Active End: 96-84-9305advg 1 tablet by mouth in the morningestradiol (Estrace) 0.5 MG tablet Take 0.5 mg by mouth in the morning. 11/14/2023 DiscontinuedFLUoxetine 20 mg oral capsule (10 sources)Serotonin Reuptake InhibitorStart: 01-03-2023 End: 56-29-6619ztvr 1 capsule by mouth in the morningFLUoxetine (PROzac) 20 MG capsule Indications: Mood changes TAKE 1 CAPSULE (20 MG) BY MOUTH IN THE MORNING 90 capsule 3 10/28/2023 10/27/2024 Rxnjej24 ml lidocaine hydrochloride 10 mg/ml injection (12 sources)Antiarrhythmic, Amide Local AnestheticStart: 32-49-2822anqkexbwf (Xylocaine) 1 % injection 5 mgloratadine 5 mg disintegrating oral tablet (9 sources)loratadine (Claritin Reditabs) 5 MG tablet dispersible dissolvable tablet Take by mouth Doablb95 hr metFORMIN hydrochloride 500 mg extended release oral tablet (9 sources)BiguanideStart: 02-25-2023 End: 20-16-8236posw 1 tablet by mouth once daily at dinnermetFORMIN XR (Glucophage-XR) 500 MG 24 hr tablet Indications: Insulin resistance TAKE 1 TABLET BY MOUTH EVERY DAY WITH EVENING MEAL 90 tablet 3 02/25/2023 04/30/2024 DiscontinuedMONOJECT 3CC SYRINGE 3 ML misc (6 sources)Start: 05-03-2023 End: 24-29-1882ELOSBARG 3CC SYRINGE 3 ML misc 05/03/2023 04/30/2024 Discontinued Start: 13-08-9491XPOWWMVM 3CC SYRINGE 3 ML misc 05/03/2023 Activespironolactone 50 mg oral tablet (5 sources)Aldosterone AntagonistStart: 11-14-2023 End: 37-33-0087malz 1 tablet by mouth once dailyspironolactone (Aldactone) 50 MG tablet Indications: Elevated dehydroepiandrosterone sulfate level Take 1 tablet (50 mg) by mouth Daily 90 tablet 11/14/2023 04/30/2024 Discontinued Completed/Discontinued Medications MedicationDrug Class(es)DatesSig (Normalized)Sig (Original)citalopram 40 mg oral tablet (2 sources)Serotonin Reuptake Inhibitor End: 00-68-4579kjmo 1 tablet by mouth in the morningcitalopram (CeleXA) 40 MG tablet Take 40 mg by mouth in the morning. 0 03/24/2023 Discontinued Problems Active Problems Problem ClassificationProblemDateDocumented DateEpisodic/ChronicAcute bronchitis (1 source)Acute bronchitis; Translations: [Acute bronchitis, unspecified] 73-55-0117FqjziodbNecyjcp disorders (6 sources)Anxiety; Translations: [Anxiety disorder, unspecified]Onset: 544656-02-4984NsagupgYnusvfgzyuoxxz and diverticulitis (1 source)Diverticulosis of intestine, part unspecified, without perforation or abscess without bleeding; Translations: [Diverticulosis of intestine, part unspecified, without perforation or abscess without bleeding]Onset: 05-31-2024 ChronicImmunizations and screening for infectious disease (1 source)Encounter for screening for human papillomavirus (HPV); Translations: [ENC SCREENING HUMAN PAPILLOMAVIRUS]Onset: 82-19-0612FiccbdixHcvdhngnla disorders (8 sources)Menopausal flushing; Translations: [Menopausal and female climacteric states]Onset: 473552-75-1432GibknvuOaew disorders (6 sources)Depressive disorder; Translations: [Depression]Onset: 11-14-2023 24-53-9910GrrfnswZdvzo and unspecified benign neoplasm (1 source)Polyp of colon; Translations: [Polyp of colon]Onset: 05-31-2024 EpisodicOther screening for suspected conditions (not mental disorders or infectious disease) (15 sources)Encounter for screening for malignant neoplasm of cervix; Translations: [Encounter for screening mammogram for malignant neoplasm of breast]Onset: 21-13-3403JqqbrhczQmppl skin disorders (2 sources)Hirsutism; Translations: [Hirsutism]99-79-8434VjaapvaqRykqmkdh codes; unclassified (2 sources)Postmenopausal state; Translations: [Asymptomatic menopausal state] 59-11-2682BaqdlvozWjjutjda transmitted infections (not HIV or hepatitis) (1 source)Vaginal high risk human papillomavirus (HPV) DNA test positive; Translations: [Vaginal high risk human papillomavirus (HPV) DNA test positive] Onset: 71-07-5730GovgepwaCtmngnyadapx (1 source)screeningOnset: 05-31-2024 Past or Other Problems Problem ClassificationProblemDateDocumented DateEpisodic/ChronicCancer of other female genital organs (7 sources)Atypical squamous cells of undetermined significance on cytologic smear of vagina (ASC-US); Translations: [Low grade squamous intraepithelial lesion on vaginal Papanicolaou smear]Onset: 991416-38-8254XxgmvpmfQbgrrum and fatigue (10 sources)Other fatigue; Translations: [Fatigue]Onset: 69-87-9886Fsezmvff Mycoses (6 sources)Mycosis; Translations: [Candidiasis, unspecified]Onset: 03-01-2024 48-90-8775DbxctazyXahfu endocrine disorders (6 sources)Disorder of endocrine system; Translations: [Endocrine disorder, unspecified]Onset: 678519-41-1998NlfbrmyoInywy nutritional; endocrine; and metabolic disorders (6 sources)Abnormal weight gain; Translations: [Abnormal weight gain]Onset: 893953-41-1589CkhjjzeaVeonv infection (6 sources)Condyloma acuminatum of the anogenital region; Translations: [Anogenital (venereal) warts]Onset: 447153-78-2431Wbyezypq Results Test NameValueInterpretationReference RangeFacilitySurgical Pathologyon 15-79-8905Dyjgtald PathologyNormalProThe [facility] Systemca [facility] Health CenterComment on above: Result Comment: [facility] [address] [place] [address] Surgical Pathology Consultation Patient Name:MILDRED LUJAN:1970 (Age: 53)Gender:FTaken:05/31/2024Reported:06/05/2024Physician(s):Michael Hinson D.O. ([phone])Copy To: Rec. #:[id number]: #[id number] Final Pathologic Diagnosis Colon, splenic flexure, polypectomy: Tubular adenoma. Report Electronically Signed Out rg/06/05/2024Homer Gaona MD Interpretation performed at [facility], [address] [place] [address], License number: [id number]. Clinical History Screening. Gross Description Received in formalin labeled LE, splenic flexure polyp are 3 matute feathery polypoid fragments 0.1 cm - 0.8 cm. The specimen is filtered and submitted entirely in one cassette. (1,ns,K46-34030, m1) sxw/06/01/2024NSK Specimen(s) Received Splenic flexure polyp Fee Codes(s): 1; 90745IPC,APTIMA HPV,AGE GDLNon 73-26-2466SCJ GDLN ACOG TESTINGNote.NOMS HealthcareComment on above:TESTS RESULT FLAG UNITS REF RANGE LAB Clinician Provided Cytology Information Source.............Vagina No. of containers..01 ThinPrep Vial Age Memo MICHAEL Jayna... 3065 FLAG LEGEND: L-Low Normal,H-High Normal,LL-Alert Low,HH-Alert High <-Panic Low,>-Panic High,A-Abnormal,AA-Critical Abnormal Performed at: 01 =G [address] [place] [address] Bette Tidwell MD, HPV APTIMANegativeNegativeNOMS HealthcareComment on above:This nucleic acid amplification test detects fourteen high- risk HPV types (16,18,31,33,35,39,45,51,52,56,58,59,66,68) without differentiation. Performed at: =G - Lab[address] [id number] Rigger: Bette Tidwell MD, Phone: [phone] Performed at: - [address] [id number] Rigger: Bette Tidwell MD, Phone: [phone] IGP, APTIMA HPV, RFX 16/18,45Note.NOMS HealthcareComment on above:TESTS RESULT FLAG UNITS REF RANGE LAB DIAGNOSIS: 02 NEGATIVE FOR INTRAEPITHELIAL LESION OR MALIGNANCY. THIS SPECIMEN WAS RESCREENED PART OF OUR RESOURCE ENGINEER PROGRAM. Specimen adequacy: 02 Satisfactory for evaluation. Performed by: 03 Susie Hay, Wet Process Technician ([facility]) QC reviewed by: 02 Marily Camarillo, Wet Process Technician ([facility]) . 02 Note: Note 02 The Pap [...] <-Panic Low,>-Panic High,A-Abnormal,AA-Critical Abnormal Performed at: 02 [address] [facility] [address] [address] Bette Tidwell MD, 03 KWCYT [facility] [address] [address] [place] [address] Wallace Forrest MD, SPATULA-ALONE VAGINA [facility] TOMOSYNTHESIS SCREENING BIon 54-29-8469[address] [address] Mammography Report Signed Patient: EFRAIN LUJAN MR#: [id number] : 1970 Acct:[id number] Age/Sex: 53 / F ADM Date: 01/03/24 Loc: RAD Attending Dr: Randy Martins D.O. Ordering Physician: Randy Martins D.O. Results: Date of Service: 01/03/24 Follow Up: Procedure(s): MM tomosynthesis screening BI Accession Number(s): [id number] cc: CHICHI DOOLEY ; Randy Martins D.O. Patient Name: EFRAIN LUJAN MR#: [id number] : 1970 Exam Date: 01/03/2024 Ordering Doctor: [...] Treatments None Family Cancers None LOCATION: [facility] BREAST COMPOSITION: The breasts are heterogeneously dense,which [...] BIOPSIED. Dictated by: Tresa Garrett MD on 01/04/2024 at 08:18 Approved by: Tresa Garrett MD on 01/04/2024 at 08:19 Dictated By: Tresa Garrett M.D. Signed By: 01/04/24819 DD/ 9 TD/TT: Sodder:TBHRadiology, RadiologistMD - 01/04/2024 [place] [address] Mammography Report Signed Patient: EFRAIN LUJAN MR#: [id number] : 1970 Acct:[id number] Age/Sex: 53 / F ADM Date: 01/03/24 Loc: RAD Attending Dr: Randy Martins D.O. Ordering Physician: Randy Martins D.O. Results: Date of Service: 01/03/24 Follow Up: Procedure(s): MM tomosynthesis screening BI Accession Number(s): [id number] cc: CHICHI DOOLEY ; Randy Martins D.O. Patient Name: EFRAIN LUJAN MR#: [id number] : 1970 Exam Date: 01/03/2024 Ordering Doctor: [...] Treatments None Family Cancers None LOCATION: [facility] BREAST COMPOSITION: The breasts are heterogeneously dense,which [...] BIOPSIED. Dictated by: Tresa Garrett MD on 01/04/2024 at 08:18 Approved by: Tresa Garrett MD on 01/04/2024 at 08:19 Dictated By: Tresa Garrett M.D. Signed By: 01/04/24819 DD/ 9 TD/TT: Sodder: EMMANUEL HealthcareRadiology Study observation (narrative)[facility] TOMOSYNTHESIS SCREENING BIOrdered By: Radiologist Radiology on 90-40-4768[facility] Work Phone: xr DEXA AXIAL SKELETONon 37-62-44[place] [address] XRay Report Signed Patient: EFRAIN LUJAN MR#: [id number] : 1970 Acct:[id number] Age/Sex: 53 / F ADM Date: 01/03/24 Loc: RAD Attending Dr: Randy Martins D.O. Ordering Physician: Randy Martins D.O. Date of Service: 01/03/24 Procedure(s): XR DEXA axial skeleton Accession Number(s): [id number] cc: CHICHI DOOLEY ; Randy Martins D.O. [place] [address] Patient Name: EFRAIN LUJAN MRN: [id number] date: 1970 Sex: F Assigned Patient Location: [facility] Current Patient Location: Accession/Order Number: [id number] Exam Date: 01/03/2024 10:35 Report Date: 01/04/2024 03:53 At the request of: RANDY MARTINS Procedure: XR DEXA axial skeleton EXAMINATION: XR DEXA axial skeleton HISTORY: Postmenopausal State COMPARISON: No relevant comparison available. TECHNIQUE: Dual-energy X-ray absorptiometry (DXA) was performed. FINDINGS: SPINE ANALYSIS: Average bone mineral density is 1.4-5 g/cm2. T-score (standard deviation relative to young adult mean): 2.0 . HIP ANALYSIS: Lowest bone mineral density is within the right femoral neck, 0.874 g/cm2. T-score (standard deviation relative to young adult mean): -1.2 . XR/XR DEXA axial skeleton IMPRESSION: World Health Organization Classification: Osteopenia - Moderate Fracture Risk FRAX: Cannot be calculated. Pharmacologic treatment recommendations * No uniform recommendation applies to all patients. Management plans must be individualized. * Consider initiating pharmacologic treatment in postmenopausal women and men >= 50 years of age who have the following: Primary fracture prevention: * T-score <= - 2.5 at the femoral neck, total hip, lumbar spine, 33% radius (some uncertainty with existing data) by DXA. * Low bone mass (osteopenia: T-score between - 1.0 and - 2.5) at the femoral neck or total hip by DXA with a 10-year hip fracture risk >= 3% or a 10-year major osteoporosis-related fracture risk >= 20% (i.e., clinical vertebral, hip, forearm, or proximal humerus) based on the US-adapted FRAXregistered model. Secondary fracture prevention: * Fracture of the hip or vertebra regardless of BMD [4, 5]. * Fracture of proximal humerus, pelvis, or distal forearm in persons with low bone mass (osteopenia: T-score between - 1.0 and - 2.5). The decision to treat should be individualized in persons with a fracture of the proximal humerus, pelvis, or distal forearm who do not have osteopenia or low BMD [12, 13]. Jani MS, Vera SL, Juan KL, Mychal EM, Ginger KG, AJ, Jayy ES. The clinician's guide to prevention and treatment of osteoporosis. Osteoporos Int. 2021;33(10):1903-4315. doi: 10.1007/y33425-464-26946-p. Epub 2021Jun 11. Erratum in: Osteoporos Int. 2021Sep 10;: PMID: 44154076; PMCID: RET8360615. Electronically authenticated by: SUSI ARMOS Date: 01/04/2024 03:53 Dictated By: Susi Ramos M.D. Signed By: 01/04/24354 DD/ 2 TD/TT: Sodder:TBHRadiology, Radiologist, - 01/04/2024 [place] [address] XRay Report Signed Patient: EFRAIN LUJAN MR#: [id number] : 1970 Acct:[id number] Age/Sex: 53 / F ADM Date: 01/03/24 Loc: NIKUNJ Attending Dr: Randy Martins D.O. Ordering Physician: Randy Martins D.O. Date of Service: 01/03/24 Procedure(s): XR DEXA axial skeleton Accession Number(s): [id number] cc: CHICHI DOOLEY ; Randy Martins D.O. The [address] [address] Patient Name: EFRAIN LUJAN MRN: [id number] date: 1970 Sex: F Assigned Patient Location: [facility] Current Patient Location: Accession/Order Number: [id number] Exam Date: 01/03/2024 10:35 Report Date: 01/04/2024 03:53 At the request of: RANDY MARTINS Procedure: XR DEXA axial skeleton EXAMINATION: XR DEXA axial skeleton HISTORY: Postmenopausal State COMPARISON: No relevant comparison available. TECHNIQUE: Dual-energy X-ray absorptiometry (DXA) was performed. FINDINGS: SPINE ANALYSIS: Average bone mineral density is 1.4-5 g/cm2. T-score (standard deviation relative to young adult mean): 2.0 . HIP ANALYSIS: Lowest bone mineral density is within the right femoral neck, 0.874 g/cm2. T-score (standard deviation relative to young adult mean): -1.2 . XR/XR DEXA axial skeleton IMPRESSION: World Health Organization Classification: Osteopenia - Moderate Fracture Risk FRAX: Cannot be calculated. Pharmacologic treatment recommendations * No uniform recommendation applies to all patients. Management plans must be individualized. * Consider initiating pharmacologic treatment in postmenopausal women and men >= 50 years of age who have the following: Primary fracture prevention: * T-score <= - 2.5 at the femoral neck, total hip, lumbar spine, 33% radius (some uncertainty with existing data) by DXA. * Low bone mass (osteopenia: T-score between - 1.0 and - 2.5) at the femoral neck or total hip by DXA with a 10-year hip fracture risk >= 3% or a 10-year major osteoporosis-related fracture risk >= 20% (i.e., clinical vertebral, hip, forearm, or proximal humerus) based on the US-adapted FRAXregistered model. Secondary fracture prevention: * Fracture of the hip or vertebra regardless of BMD [4, 5]. * Fracture of proximal humerus, pelvis, or distal forearm in persons with low bone mass (osteopenia: T-score between - 1.0 and - 2.5). The decision to treat should be individualized in persons with a fracture of the proximal humerus, pelvis, or distal forearm who do not have osteopenia or low BMD [12, 13]. Jani MS, Vera SL, Juan KL, Mychal EM, Ginger KG, AJ, Jayy ES. The clinician's guide to prevention and treatment of osteoporosis. Osteoporos Int. 2021;33(10):8162-6607. doi: 10.1007/h58987-673-40069-h. Epub 2021Jun 11. Erratum in: Osteoporos Int. 2021Sep 10;: PMID: 27862143; PMCID: UBW1183998. Electronically authenticated by: SUSI RAMOS Date: 01/04/2024 03:53 Dictated By: Susi Ramos M.D. Signed By: 01/04/24354 DD/ 2 TD/TT: Sodder: [facility] HealthcareRadiology Study observation (narrative)[facility] HospitalXR DEXA AXIAL SKELETONOrdered By: Radiologist Radiology on 67-59-4052[facility] Work Phone: IGP,APTIMA HPV,AGE GDLNon 47-83-0647LEB GDLN ACOG TESTINGNote.[facility] HealthcareComment on above:TESTS RESULT FLAG UNITS REF RANGE LAB Clinician Provided Cytology Information Source.............Vagina No. of containers..01 ThinPrep Vial Age Algo ACOG Jayna... 30-65 01 FLAG LEGEND: L-Low Normal,H-High Normal,LL-Alert Low,HH-Alert High <-Panic Low,>-Panic High,A-Abnormal,AA-Critical Abnormal Performed at: 01 =[address] [place] [address] Bette Tidwell MD, HPV APTIMANegativeNegativeNOMS HealthcareComment on above:This nucleic acid amplification test detects fourteen high- risk HPV types (16,18,31,33,35,39,45,51,52,56,58,59,66,68) without differentiation. Performed at: =[address] [id number] Rigger: Bette Tidwell MD, Phone: [phone] Performed at: [address] [id number] Rigger: Bette Tidwell MD, Phone: [phone] IGP, APTIMA HPV, RFX 16/18,45Note.NOMS HealthcareComment on above:TESTS RESULT FLAG UNITS REF RANGE LAB DIAGNOSIS: 02 NEGATIVE FOR INTRAEPITHELIAL LESION OR MALIGNANCY. Specimen adequacy: 02 Satisfactory for evaluation. Performed by: 02 Bernadette Herrera, Wet Process Technician (ASC) . 02 Note: Note 02 The Pap [...] <-Panic Low,>-Panic High,A-Abnormal,AA-Critical Abnormal Performed at: 02 WB [facility] [address] [address] Bette Tidwell MD, [facility] ACOG PANEL 2: 30 to 65on 03-29-2022..NormalThe Pomerene HospitalComment on above:Result Comment: Performed at: WBPerformed By: #### CBC #### [facility] [address] [place] [address] Dr. David Duenas Gdln ACOG Rtwwwuh31-58RtprdsOswGreen Cross HospitalComascension st. john hospital on above:Performed By: #### CBC #### [facility] [address] [place] [address] Dr. David CutlerDIAGNOSIS:CommentProMedica Bay Park Hospital on above: Result Comment: NEGATIVE FOR INTRAEPITHELIAL LESION OR MALIGNANCY. Performed at: WBPerformed By: #### CBC #### [facility] [address] [place] [address] Dr. David Colindres AptimaNegativeNormalNegativeTrinity Health System Twin City Medical CenterComascension st. john hospital on above:Result Comment: This nucleic acid amplification test detects fourteen high-risk HPV types (16,18,31,33,35,39,45,51,52,56,58,59,66,68) without differentiation. Performed at: =GPerformed By: #### CBC #### [facility] [address] [place] [address] Dr. David Colindres Genotype ReflexCommentNoGreen Cross HospitalComment on above:Result Comment: Criteria not met, HPV Genotype not performed. Performed at: WBPerformed By: #### CBC #### [facility] [address] [place] [address] Dr. David CutlerMethodology:CommentProMedica Bay Park Hospital on above: Result Comment: This liquid based ThinPrep(R) pap test was screened with the use of an image guided system. Performed at: WBPerformed By: #### CBC #### [facility] [address] [place] [address] Dr. David CutlerNote:CommentNoMansfield Hospital on above:Result Comment: The Pap smear is a screening test designed to aid in the detection of premalignant and malignant conditions of the uterine cervix. It is not a diagnostic procedure and should not be used as the sole means of detecting cervical cancer. Both false-positive and false-negative reports do occur. . Performed at: WBPerformed By: #### CBC #### [facility] [address] [place] [address] Dr. David CutlerPerformed by:CommentNoMansfield Hospital on above: Result Comment: Mayte Deluna Wet Process Technician (ASCP) Performed at: WBPerformed By: #### CBC #### [place] [address] Dr[address] David CutlerSpecimechao adequacy:CommentProMedica Bay Park Hospital on above:Result Comment: Satisfactory for evaluation. No endocervical component is identified. Performed at: WBPerformed By: #### CBC #### [facility] [address] [place] [address] Dr. David CutlerMG MAMM SCREEN 3D LETITIA CADon 78-01-5060PF MAMM SCREEN 3D LETITIA CAD Patient: MILDRED LUJAN Exam Date: 12/23/2021 : 1970 Gender:F Ordering : DR RANDY MARTINS . Admission #: [id number] Family : Order #: [id number] CLICK HERE TO VIEW EXAM RADIOLOGY REPORT [...] Treatments None Family Cancers None LOCATION: [facility] BREAST COMPOSITION: Heterogeneously dense,which may obscure [...] by: Tresa Garrett MD on 12/23/2021 at 10:35[facility] ESTRADIOLon 83-21-4699Iswxczfqk45.3 pg/mLNormalTrinity Health System Twin City Medical CenterComment on above:Result Comment: Adult Female: Follicular phase 12.5 - 166.0 Ovulation phase 85.8 - 498.0 Luteal phase 43.8 - 211.0 Postmenopausal <6.0 - 54.7 1st trimester 215.0 - >4300.0 Marie ECLIA methodologyPerformed By: #### ESTRADI #### [facility] [address] [place] [address] Dr. David CutlerPROGESTERONEon 22-04-8868Cjfnpyylclxj0.1 ng/mLNormalTrinity Health System Twin City Medical CenterComment on above:Result Comment: Follicular phase 0.1 - 0.9 Luteal phase 1.8 - 23.9 Ovulation phase 0.1 - 12.0 First trimester 11.0 - 44.3 Second trimester 25.4 - 83.3 Third trimester 58.7 - 214.0 Postmenopausal 0.0 - 0.1Performed By: #### PROGES #### [facility] [address] [place] [address] Dr. David CutlerCBRima AUTO DIFFon 58-17-5862HIIS #0.0 103/ulNormal0.0-0.1[facility] Medical CenterComment on above:Performed By: #### CBC #### [facility] [address] [place] [address] [address] David CutlerBasophils/100 WBC (Bld)0.9 %Normal0.2-2.0[facility] Comment on above:Performed By: #### CBC #### [facility] [address] [place] [address] [address] David White #0.1 103/ulNormal0.0-0.7The [facility] HospitalComment on above: Performed By: #### CBC #### [facility] [address] [place] [address] Dr. David Theodoreosinophils/100 WBC (Bld)2.8 %Normal0.9-7.0[facility] Comment on above:Performed By: #### CBC #### [facility] [address] [place] [address] Dr. David Theodorerythrocyte distribution width (RBC) [Ratio]13.0 %Bkvlwx14.0-15.0 The [facility]rene HospitalComment on above:Performed By: #### CBC #### [facility] [address] [place] [address] Dr. David CutlerHematocrit (Bld) [Volume fraction]41.7 %Ksjhpq34.0-48.0The [facility] HospitalComment on above:Performed By: #### CBC #### [facility] [address] [place] [address] Dr. David CutlerHemoglobin (Bld) [Mass/Vol]14.0 g/sXHurlvb48.0-16.0The [facility] HospitalComment on above:Performed By: #### CBC #### [facility] [address] [place] [address] Dr. David Strong #0.00 10e3/ulNormal0.00-0.03The [facility] HospitalComment on above:Performed By: #### CBC #### [facility] [address] [place] [address] Dr. David Strong %0.0 %Normal0.0-0.5The [facility] HospitalComment on above: Performed By: #### CBC #### [facility] [address] [address] [address] David Wen #2.1 103/ulNormal1.2-3.8The [facility] HospitalComment on above:Performed By: #### CBC #### [facility] [address] [address] [address] David Noelhocytes/100 WBC (Bld)49.6 %Duzkvt03.5-60.0The [facility] HospitalComment on above:Performed By: #### CBC #### [facility] [address] [place] [address] Dr. David Amado DIFF REQNONormalThe [facility]rene HospitalComment on above: Performed By: #### CBC #### [facility] [address] [place] [address] Dr. David Alarcon (RBC) [Entitic mass]31.0 riFxemom95.7-34.0The [facility] HospitalComment on above:Performed By: #### CBC #### [facility] [address] [place] [address] Dr. David Rowell (RBC) [Mass/Vol]33.6 g/aWWicjlh65.9-35.2The [facility]Com[facility] on above:Performed By: #### CBC #### [facility] [address] [place] [address] Dr. David Rowell (RBC) [Entitic vol]92.5 lSMcthes65.0-99.0The [facility] HospitalComment on above:Performed By: #### CBC #### [facility] [address] [place] [address] Dr. David Tran #0.5 103/ulNormal0.3-0.8The [facility] HospitalComment on above:Performed By: #### CBC #### [facility] [address] [place] [address] Dr. David Bassettocytes/100 WBC (Bld)11.1 %Normal1.7-12.0[facility] Comment on above:Performed By: #### CBC #### [facility] [address] [place] [address] Dr. David Atkinson #1.5 103/ulNormal1.4-6.5The [facility] HospitalComment on above:Performed By: #### CBC #### [facility] [address] [place] [address] Dr. David Abelutrophils/100 WBC (Bld)35.6 %Critically low43.0-75.0The [facility] HospitalComment on above:Performed By: #### CBC #### [facility] [address] [place] [address] Dr. David Rizolet mean volume (Bld) [Entitic vol]10.0 fLNormal9.5-13.5The [facility] HospitalComment on above:Performed By: #### CBC #### [facility] [address] [place] [address] Dr. David CutlerPLT226 103/qmTnxdgt315-003Dkl [facility] HospitalComment on above: Performed By: #### CBC #### [facility] [address] [place] [address] Dr. David CutlerRBC4.51 106/ulNormal4.20-5.40The [facility] HospitalComment on above:Performed By: #### CBC #### [facility] [address] [place] [address] Dr. David CutlerWBC4.3 103/ulNormal4.0-11.0The [facility] HospitalComment on above: Performed By: #### CBC #### [facility] [address] [place] [address] Dr. David Lozada T4on 85-43-1307Xnst T4 [Mass/Vol]1.07 ng/dLNormal0.76-1.46 The [facility] HospitalComment on above:Performed By: #### FT4, VITAD, VITB12 #### [facility] [address] [place] [address] Dr. David GonzalezID PROFILEon 38-90-1015ZDGK-HDL RATIO [facility] SystemComment on above:Result Comment: 3.3 - 4.4 LOW RISK 4.4 - 7.1 AVERAGE RISK 7.1 - 11.0 MODERATE RISK >11.0 HIGH RISKPerformed By: #### CMP, TSH, LIPID #### [facility] [address] [address] [address] David CutlerCholesterol [Mass/Vol]172 mg/dLNormal<=200[facility] Comment on above:Performed By: #### CMP, TSH, LIPID #### [facility] [address] [place] [address] Dr. David Bandaesterol in HDL [Mass/Vol]77 mg/dLCritically evax95-63LxbTrinity Health System Twin City Medical CenterComment on above:Performed By: #### CMP, TSH, LIPID #### [facility] [address] [place] [address] Dr. David Bandaesterol in LDL [Mass/Vol]85.2 mg/dLAvita Health System Galion HospitalComment on above:Performed By: #### CMP, TSH, LIPID #### [facility] [address] [place] [address] Dr. David Mike.total/Cholesterol in HDL [Mass ratio]2.2 {ratio} NormalTrinity Health System Twin City Medical CenterComment on above:Performed By: #### CMP, TSH, LIPID #### [facility] [address] [place] [address] Dr. David Holm NORMAL> or = 60 mg/dl - LOW CARDIOVASCULAR RISK <40 mg/dl - HIGH CARDIOVASCULAR RISKAvita Health System Galion HospitalComment on above:Performed By: #### CMP, TSH, LIPID #### [facility] [address] [place] [address] Dr. David CutlerLDL CALC NORMALSEE [facility] HospitalComment on above:Result Comment: <100 mg/dl OPTIMAL 100 - 129 mg/dl NEAR OR ABOVE OPTIMAL 130 - 159 mg/dl BORDERLINE HIGH 160 - 189 mg/dl HIGH >190 mg/dl VERY HIGH Performed By: #### CMP, TSH, LIPID #### [facility] [address] [address] [address] David CutlerTriglyceride [Mass/Vol]49 mg/dLNormal<=150The [facility] Comment on above:Performed By: #### CMP, TSH, LIPID #### [facility] [address] [address] [address] David CutlerVLDL CALC9.8 mg/dLNormalThe [facility] HospitalComment on above: Performed By: #### CMP, TSH, LIPID #### [facility] [address] [address] [address] David Jay 14(COMP METB)on 11-51-9490Uipdumj [Mass/Vol]3.7 g/dLNormal 3.4-5.0The [facility] HospitalComment on above:Performed By: #### CMP, TSH, LIPID #### [facility] [address] [place] [address] Dr. David CutlerAlbumin/Globulin [Mass ratio]1.0 {ratio}NormalThe [facility] HospitalComment on above:Performed By: #### CMP, TSH, LIPID #### [facility] [address] [place] [address] Dr. David Roque [Catalytic activity/Vol]67 U/UTqfagj97-679Fzh [facility] HospitalComment on above:Performed By: #### CMP, TSH, LIPID #### [facility] [address] [address] [address] David Starks [Catalytic activity/Vol]27 U/WNcycep44-41Uca [facility] HospitalComment on above:Performed By: #### CMP, TSH, LIPID #### [facility] [address] [place] [address] Dr. David Echavarria gap [Moles/Vol]9.6 mmol/LNormalThe [facility] HospitalComment on above:Performed By: #### CMP, TSH, LIPID #### [facility] [address] [place] [address] Dr. Yilan ChangAST [Catalytic activity/Vol]20 U/HJwbwvm92-64Vtg [facility] HospitalComment on above:Performed By: #### CMP, TSH, LIPID #### [facility] [address] [address] [address] David CutlerBilirubin [Mass/Vol]0.9 mg/dLNormal0.2-1.0[facility] Comment on above:Performed By: #### CMP, TSH, LIPID #### [facility] [address] [place] [address] Dr. David CutlerCalcium [Mass/Vol]9.1 mg/dLNormal8.5-10.1The [facility] Comment on above:Performed By: #### CMP, TSH, LIPID #### [facility] [address] [place] [address] Dr. David CutlerChloride [Moles/Vol]102 mmol/ABawvwb75-111Okh [facility] Comment on above:Performed By: #### CMP, TSH, LIPID #### [facility] [address] [place] [address] Dr. David CutlerCO2 [Moles/Vol]34.1 mmol/LCritically high21.0-32.0The [facility] HospitalComment on above:Performed By: #### CMP, TSH, LIPID #### [facility] [address] [place] [address] Dr. David CutlerCreatinine [Mass/Vol]0.78 mg/dLNormal0.55-1.02The [facility] HospitalComment on above:Performed By: #### CMP, TSH, LIPID #### [facility] [address] [place] [address] Dr. David TheodoreGFR-AF PRYDEINIG>60Normal>=60The [facility] HospitalComment on above:Performed By: #### CMP, TSH, LIPID #### [facility] [address] [place] [address] Dr. David TheodoreGFR-NON AF PRYDEINIG>60Normal>=60The [facility] HospitalComment on above:Performed By: #### CMP, TSH, LIPID #### [facility] [address] [address] [address] David CutlerGlobulin (S) [Mass/Vol]3.7 g/dLNormBethesda North HospitalComment on above:Performed By: #### CMP, TSH, LIPID #### [facility] [address] [address] [address] David CutlerGlucose [Mass/Vol]95 mg/gWGefwak76-087XwjTrinity Health System [facility] Comment on above:Performed By: #### CMP, TSH, LIPID #### [facility] [address] [address] [address] David CutlerPotassium [Moles/Vol]3.7 mmol/LNormal3.5-5.1The [facility] Comment on above:Performed By: #### CMP, TSH, LIPID #### [facility] [address] [address] [address] David CutlerProtein [Mass/Vol]7.4 g/dLNormal6.4-8.2[facility] Comment on above:Performed By: #### CMP, TSH, LIPID #### [facility] [address] [address] [address] David CutlerSodium [Moles/Vol]142 mmol/OEkuarj083-771WmwTrinity Health System [facility] Comment on above:Performed By: #### CMP, TSH, LIPID #### [facility] [address] [address] [address] David CutlerUrea nitrogen [Mass/Vol]13.0 mg/dLNormal7.0-18.0The [facility] HospitalComment on above:Performed By: #### CMP, TSH, LIPID #### [facility] [address] [address] [address] David CutlerUrea nitrogen/Creatinine [Mass ratio]16.7 mg/mgNoGreen Cross HospitalComment on above:Performed By: #### CMP, TSH, LIPID #### [facility] [address] [address] [address] David Cote 98-93-6869LUL1.699 uIU/mLNormal0.358-3.740The [facility] HospitalComasc[facility] on above:Performed By: #### CMP, TSH, LIPID #### [facility] [address] [place] [address] Dr. David MACHADOUniversity Hospitals Portage Medical CenterComascension st[facility] on above: Result Comment: <0.34 UIU/ml HYPERTHYROID 0.34-5.60 UIU/ml EUTHYROID >5.60 UIU/ml HYPOTHYROIDPerformed By: #### CMP, TSH, LIPID #### [facility] [address] [place] [address] Dr. David CutlerVITAMIN B12on 03-12-2124Qmjhdjpqv (Vitamin B12) [Mass/Vol]632.0 pg/fIXbwxov168.0-986.0[facility] on above:Performed By: #### FT4, VITAD, VITB12 #### [facility] [address] [place] [address] Dr. David CutlerVITAMIN D 25 OHon 39-31-9590ZCL D 25-OH44.1 ng/mLNormalLakeHealth Beachwood Medical Center on above:Performed By: #### FT4, VITAD, VITB12 #### [facility] [address] [place] [address] Dr. David MACHADOLisa [facility]Com[facility] on above: Result Comment: <20 ng/mL Vit D deficient 20 - <30 ng/mL Vit D insufficient 30 - 100 ng/mL Vit D sufficient >100 ng/mL Potential ToxicityPerformed By: #### FT4, VITAD, VITB12 #### [facility] [address] [place] [address] Dr. David CutlerPROKiko 05-77-1989VOIUWTHRRUF ID: [id number] Author: Lashell Garcia Service: ? Author Type: [...] with patient. - Referred back to her civil engineer land development for continued cervical screening, routine PROFESSOR OF SPECIAL EDUCATION care. - Pt verbalized an understanding and agreed with the plan. - Instructed to call if she has any questions or concerns. Lashell Garcia APRN.ENVIRONMENTAL AID CC: Francheska Freedman MD, MPHNormRiverview Health InstituteCNOVSPon 10-68-6152EVNJUV Visit (SP) Office ([facility]) MILDRED LUJAN ([id number]) 1970 F Date Time Provider Department 03/02/19 9:20 AM FRANCHESKA FREEDMAN During your visit today, we recorded the following information about you: Temperature Pulse Respiration Blood pressure 98.1 degrees 66/minute 16/minute 132/76 Weight Height 69.8 kg 1.702 m Francheska Freedman MD 03/04/2019 5:55 PM Signed Gynecologic Oncology [facility] Consultation Re: Dinorah Martinez Le CCF#: [id number] 08/18/2018 PROBLEM: Patient presents for follow up, ASCUS, HPV+ SUBJECTIVE/HPI: Ms Lujan is a 46 year old female with a past medical history of depression, anxiety, HPV+, hx of abnormal paps, s/p TLH bilateral salpingectomy 07/2014 in setting of menorrhagia and failed ablation. Final pathology negative. She presented to Assignment Clerk/Onc for evaluation and management of LGSIL pap [...] today - Return to follow with her civil engineer land development if pap is normal - RTC as needed Sincerely, Francheska Freedman MD, MPH 15 min spent with the patient with >505 face to face counseling and care coordination A letter and a copy of this office note were sent to: Dr. Martins CC: Chichi Dooley MD (PCP) Referring Provider: FRANCHESKA FREEDMAN [[id number]] Allergies As of Date: 03/02/2019 Noted Allergy [...] [R87.620, R87.811] Order(s):PAP FLUID VAGINAL VAULT SCREENING [9839900] Order #: [id number] Disposition: Return if symptoms worsen or fail [...] Encounter Status:Closed by FRANCHESKA FREEDMAN MD on 03/04/19[facility] CampusCYTOLOGYon 60-40-6812MMFTCFRW ADDITIONAL PROCEDURES PRESENT Specimen originated from [facility] Specimen #: [id number] Submitting Physician: FRANCHESKA FREEDMAN MD SPECIMEN SUBMITTED [...] from every slide are reviewed by a knowledge engineer. CAROLA Jaimes(ASCP) (Electronic Signature) ADDITIONAL PROCEDURE(S) HUMAN [...] developed and its performance characteristics determined by [facility] [place] ([facility]). It has not been cleared or approved by the FDA. [facility] is regulated under CLIA as qualified to perform high-complexity testing. This test is used for clinical purposes. It should not be regarded as investigational or for research. CLINICAL DATA HYSTERECTOMY TOTAL, HPV Testing: Yes, automatic HPV patients over 30 Date of Last Menstrual Period: Hysterectomy STAINS A: VAGINAL VAULT,SCREENING, FLUID THIN PREP PROFESSOR OF SPECIAL EDUCATION Jerardo Ladd M.D., Process Design Engineer Date of Report: 03/07/2019 Date of Procedure: 03/02/2019 Date of Receipt: 03/05/2019 Submitted by: FRANCHESKA FREEDMAN MD Location: [facility] Diagnostic interpretation performed at [facility], [address] [place] [address]. CLIA Number: [id number] The Pap Smear is a screening test for cervical cancer. False negative results occur with all screening tests, emphasizing the need for rescreening at recommended intervals, and clinical correlation.NormalDayton Children'S HospitalHPV w/Genotypeon 18-61-4176RAD HighRisk OtherPositive for one or more of the following HPV DNA high risk types: 31,33,35,39,45,51,52,56,58,59,66,68 by PCRCritically abnormalMarymount Hospital on above:Result Comment: This test was developed and its performance characteristics determined by [facility] [place] ([facility]). It has not been cleared or approved by the FDA. [facility] is regulated under CLIA as qualified to perform high-complexity testing. This test is used for clinical purposes. It should not be regarded as investigational or for research.Performed By: #### HPVHRR #### [facility] [address] [address] CSO HighRisk Type 16NegativeNormalCPremier Health Miami Valley Hospital on above:Performed By: #### HPVHRR #### [id number] [id number] IJW HighRisk Type 18NegativeNormalCPremier Health Miami [facility] Hospital on above:Performed By: #### HPVHRR #### [id number] URRQVJXRpu 90-51-5904CPUNQJHSHXH ID: [id number] Author: Francheska Freedman Service: ? Author Type: Physician Type: Progress Notes Filed: 03/04/2019 5:55 PM Note Text: Gynecologic Oncology [facility] Consultation Re: Dinorah Lujan CCF#: [id number] 08/18/2018 PROBLEM: Patient presents for follow up, ASCUS, HPV+ SUBJECTIVE/HPI: Ms Lujan is a 46 year old female with a past medical history of depression, anxiety, HPV+, hx of abnormal paps, s/p TLH bilateral salpingectomy 07/2014 in setting of menorrhagia and failed ablation. Final pathology negative. She presented to Assignment Clerk/Onc for evaluation and management of LGSIL pap [...] today - Return to follow with her civil engineer land development if pap is normal - RTC as needed Sincerely, Francheska Freedman MD, MPH 15 min spent with the patient with >505 face to face counseling and care coordination A letter and a copy of this office note were sent to: Dr. Martins CC: Chichi Dooley MD (PCP)NormalDayton Children'S HospitalCYTOLOGYon 08-19-2018 CYTOLOGYSpecimen originated from [facility] Specimen #: [id number] Submitting Physician: FRANCEHSKA FREEDMAN MD SPECIMEN SUBMITTED A: VAGINAL VAULT,SCREENING, [...] from every slide are reviewed by a knowledge engineer. CAROLA Pelletier(ASCP) (Electronic Signature) CLINICAL DATA ROUTINE EXAM, HPV Testing: No HPV test Date of Last Menstrual Period: Hysterectomy STAINS A: VAGINAL VAULT,SCREENING, FLUID THIN PREP PROFESSOR OF SPECIAL EDUCATION Jerardo Ladd M.D., Process Design Engineer Date of Report: 08/25/2018 Date of Procedure: 08/19/2018 Date of Receipt: 08/21/2018 Submitted by: FRANCHESKA FREEDMAN MD Location: [place] Diagnostic interpretation performed at [facility], [address] [place] [address]. CLIA Number: [id number] The Pap Smear is a screening test for cervical cancer. False negative results occur with all screening tests, emphasizing the need for rescreening at recommended intervals, and clinical correlation.NormalDayton Children'S HospitalCNOVSPon 56-35-3334QAOMORXfmjp (SP) Office (GYNOSA) MILDRED LUJAN ([id number]) 1970 F Date Time Provider Department 08/18/18 10:40 AM FRANCHESKA FREEDMAN During your visit today, we recorded the following information about you: Temperature Pulse Respiration Blood pressure 98.3 degrees 74/minute 18/minute 116/69 Weight Height 71.7 kg 1.702 m Francheska Freedman MD 08/19/2018 11:15 AM Signed Gynecologic Oncology [facility] Consultation Re: Dinorah Lujan CCF#: [id number] 08/18/2018 PROBLEM: Patient presents for follow up, ASCUS, HPV+ SUBJECTIVE/HPI: Ms Lujan is a 46 year old female with a past medical history of depression, anxiety, HPV+, hx of abnormal paps, s/p TLH bilateral salpingectomy 07/2014 in setting of menorrhagia and failed ablation. Final pathology negative. She presented to Assignment Clerk/Onc for evaluation and management of LGSIL pap [...] note were sent to: Dr. Martins CC: Chichi Dooley MD (PCP) Referring Provider: SELF [[id number]] Allergies [...] [R87.620, R87.811] Order(s):PAP FLUID VAGINAL VAULT SCREENING [[id number]] Order #: [id number] Disposition: Return in about 6 months (around [...] Encounter Status:Closed by FRANCHESKA FREEDMAN MD on 08/19/18NoGalion HospitalPROUNM SANDOVAL REGIONAL MEDICAL CENTERon [id number] ID: [id number] Author: Francheska Freedman Service: ? Author Type: Physician Type: Progress Notes Filed: 08/19/2018 11:15 AM Note Text: Gynecologic Oncology [facility] Consultation Re: Dinorah Lujan CCF#: [id number] 08/18/2018 PROBLEM: Patient presents for follow up, ASCUS, HPV+ SUBJECTIVE/HPI: Ms Lujan is a 46 year old female with a past medical history of depression, anxiety, HPV+, hx of abnormal paps, s/p TLH bilateral salpingectomy 07/2014 in setting of menorrhagia and failed ablation. Final pathology negative. She presented to Assignment Clerk/Onc for evaluation and management of LGSIL pap [...] note were sent to: Dr. Martins CC: Chichi Dooley MD (PCP)[facility] 12-77-1840YNJZ Office Visit (GYNML) -------IESHATEE TYLERHRYN ([id number]) 1970 [facility] Time Provider Igesimhegi30/12/18 9:30 AM FRANCHESKA FREEDMAN GYNWALI During your visit today, we recorded the following information about you: Temperature Pulse Blood pressure Weight 98.2 degrees 76/minute 132/72 70.3 kgFrancheska Freedman MD 01/25/2018 10:15 AM SignedGynecologic OncologySt. Charles HospitalConsultationRe: Dinorah LujanTEN BROECK [facility]#: [id number]: Patient presents for follow up, ASCUS, HPV+SUBJECTIVE/HPI: Ms Lujan is a 46 year old female with a pastmedical history of depression, anxiety, HPV+, hx ofabnormal paps, s/p TLHbilateral salpingectomy 07/2014 in setting of menorrhagia and failed ablation.Final pathology negative. She presented to Assignment Clerk/Onc for evaluation andmanagement of LGSIL pap 11/23/2016, HPV negativePap/bx hx:06/2013 ASCUS, HPV negative08/2015 ASCUS, HPV positive/intermediate09/2015 colpo negative, no bx03/2016 LSIL.04/2016 colpo negative, no bx11/2016 LSIL, HPV negative07/01 ASCUS HPVnegativePRIOR TREATMENT AND DATE:1)07/2014 Hysterectomy, bilateral salpingectomy - pathology negativeHEALTH MAINTENANCE:Last pap: 12/30/2017 ASCUS, HPV+Last mammogram: 10/2016 WNL per ptLast colonoscopy: NeverAmy Marlyn, RNSUBJECTIVE/INTERVAL HISTORY: Mildred Lujan reports that she feels well .No vaginal bleeding or discharge.OBJECTIVE:BP 132/72 Pulse 76 [...] Confirms the Correct Patient, Correct Procedure, Correct SiteandSite Marking, Correct Position (if applicable). Time: 9:59 AMAffirmation of Time Out: YESUrine HCG:n/aPROCEDURE:EXTERNAL GENITALIA: Normal in appearance without lesionsVAGINA: Normal [...] of this office note were sent to:Dr. Avery:Chichi Dooley MD (PCP)Referring Provider: SELF [200]Allergies As of [...] 01/25/2018(None) Status:Closed by FRANCHESKA FREEDMAN MD on 01/25/18[facility] HospitalPROESSon 27-64-8697Ouqhufn mass concHNO ID: [id number]: Francheska Rogerservice: (none)Author Type: PhysicianType: Progress NotesFiled: 01/25/2018 10:15 AMNote Text:Gynecologic OncologySt. Charles HospitalConsultationRe: Dinorah LujanTEN BROECK [facility]ITAL#: [id number]/12/2018PROBLEM: Patient presents for follow up, ASCUS, HPV+SUBJECTIVE/HPI: Ms Lujan is a 46 year old female with a pastmedical history of depression, anxiety, HPV+, hx of abnormal paps, s/p TLHbilateral salpingectomy 07/2014 in setting of menorrhagia and failedablation. Final pathology negative. She presented to Assignment Clerk/Onc forevaluation and management of LGSIL pap 11/23/2016, HPV negativePap/bx hx:06/2013 ASCUS, HPV negative08/2015 ASCUS, HPV positive/intermediate09/2015 colpo negative, no bx03/2016 LSIL.04/2016 colpo negative, no bx11/2016 LSIL,HPV negative07/01 ASCUS HPV negativePRIOR TREATMENT AND DATE:1)07/2014 Hysterectomy, bilateral salpingectomy - pathology negativeHEALTH MAINTENANCE:Last pap: 12/30/2017 ASCUS, HPV+Last mammogram: 11/03 17 WNL per ptLast colonoscopy: NeverAmy Marlyn, RNSUBJECTIVE/INTERVAL HISTORY: Mildred Lujanreports that she feelswell. No vaginal bleeding or [...] CompletedTime Out: Team Confirms the Correct Patient, CorrectProcedure, CorrectSite and Site Marking, Correct Position (if applicable). Time: 9:59 AMAffirmationof Time Out: YESUrine HCG: n/aPROCEDURE:EXTERNAL GENITALIA: Normal in appearance without lesionsVAGI NA: Normal in appearance without lesions with no acetowhite lesionafter application of 5% acetic acidBIOPSY: Not doneHEMOSTASIS: ExcellentProcedure Summary: Patient tolerated procedure well and colposcopy wasadequate.ASSESSMENT:47 yo women with low grade vaginal dysplasiaPLAN:- Exam and colponormaltoday- Pap and HPV next visit- RTC in 6 moSFrancheska fariadi, MD, MPH25 min spent with the patient with >505 face to face counseling and carecoordinationA letter and a copy of this office notewere sent to:Dr. Avery:Chichi Dooely MD (PCP)[facility] Vital Signs Date TimeVital SignValuePerforming HzwkoknylNndisutn53-23-5857 09:55-0400Body mass index (BMI) [Ratio]24.75 kg/h8Tquwp Eliezer DO Work Phone: [phone] HospitalJykinikylw68-43-2753 09:55-0400Body .67 kgCorey Eliezer DO Work Phone: [phone] HospitalQwawstwabu05-21-8466 09:55-0400Diastolic blood mm[Hg]Randy Eliezer DO Work Phone: [phone] HospitalAlgfavrsli23-34-9990 09:55-0400Systolic blood unsackbm058 mm[Hg]Randy Eliezer DO Work Phone: [phone] HospitalLbyrkxqoyb08-96-9504 09:51-0400Body egeptk616.2 Kar Carmichael MD Work Phone: [phone] HospitalIcglhakegf63-41-8894 09:51-0400Body mass index (BMI) [Ratio]27.88 kg/s8WzxcdElaine Carmichael MD Work Phone: [phone] HospitalDzfpfnewna37-11-8400 09:51-0400Body ijigoc68.74 kgElaine Carmichael MD Work Phone: [phone] [place], [place] [address]Kscmqrkgev85-16-2130 09:51-0400Diastolic blood qwncuzno44 mm[Hg]Elaine Carmichael MD Work Phone: [phone] HospitalQamieyoxzx64-76-5385 09:51-0400Heart rate67 /min Elaine Carmichael MD Work Phone: [phone] HospitalOfulanqswt15-07-0624 09:51-0400Respiratory rate16 /minElaine Carmichael MD Work Phone: [phone] [place], [place] [address]Gbmzelygkh95-96-8502 09:51-0400Systolic blood gauksuqc343 mm[Hg]Elaine Carmichael MD Work Phone: [facility] DivisionTjwqxairxf37-98-5454 08:39-0500Body mass index (BMI) [Ratio]27.06 kg/a4Nkbrh Eliezer DO Work Phone: [facility] DivisionIrbeddwovf65-74-8832 08:39-0500Body pyrbtw20.38 kgCorey Eliezer DO Work Phone: [facility] DivisionIzramkbmlq23-03-1620 08:39-0500Diastolic blood gfppjuim91 mm[Hg]Randy Parikho DO Work Phone: [facility] DivisionXkuwyxllvq32-68-3707 08:39-0500Systolic blood syyrnemt146 mm[Hg]Randyeverton Parikho DO Work Phone: [facility] Encounters Encounter DateEncounter TypeCare ProviderFacilityStart: 05-31-2024 End: 57-23-7443Jtkcvmunzp and management of inpatientMICHAEL E GRILLISProMedica St. Joseph Hospitaltart: 05-24-2024 End: 29-29-5545jdehfypqjgEXTNG M ALDAPro[address] St[address] [facility] Hospitaltart: 04-30-2024 End: 27-81-6225Vjsfyfvxg Result EncounterCorey Eliezer DO Work Phone: [facility] External Department UnsolicitedStart: 04-30-2024 End: 75-22-4968Xrrawhsnb Result EncounterCorey Eliezer DO Work Phone: [facility] External Department UnsolicitedStart: 04-30-2024 End: 95-30-7284Paymhot encounter procedureCorey Eliezer DO Work Phone: [facility] Work Phone: Start: 04-30-2024 End: 18-89-6523Wbahpvxg preventive med est patient 40-64yrsCorey Eliezer DO Work Phone: [facility] BCP OBComment on above:Menopausal vasomotor syndrome (Primary Dx); Well woman exam with routine gynecological exam; Breast cancer screening by mammogramStart: 04-30-2024 End: 43-04-8277fgteknnyqfBLXPI FAZIONot AvailableStart: 04-13-2024 End: 57-20-2949Eacgahzqn encounterChichi Dooley MD Work Phone: noMS FMStart: 01-04-2024 End: 40-20-2658Oozgxeyxo Result EncounterGeneric External Data ProviderNOMS External Department UnsolicitedStart: 01-04-2024 End: 29-31-9806Truprjgew Result EncounterGeneric External Data ProviderNOMS External Department UnsolicitedStart: 11-14-2023 End: 81-65-0934Niilfj Mitali Carmichael MD Work Phone: [facility] ENDOCRINOLOGYStart: 11-14-2023 End: 17-92-4845Valheb Mitali Carmichael MD Work Phone: [facility] ENDOCRINOLOGYStart: 11-14-2023 End: 60-83-5252Glflev outpatient new 45 minutesElaine Carmichael MD Work Phone: [facility] ENDOCRINOLOGYComment on above:Elevated dehydroepiandrosterone sulfate level (Primary Dx); HirsutismStart: 11-14-2023 End: 37-32-5720ioxwntfrxhMGSYA F SABBAGHNot AvailableStart: 05-12-2023 End: 88-61-3926skrtwrdiyaEVARF FAZIONot AvailableStart: 23-91-3475Xbelrwjub Result EncounterGeneric External Data ProviderNOMS External Department UnsolicitedStart: 70-54-6638Qmgstipsv Result EncounterGeneric External Data ProviderNOMS External Department UnsolicitedStart: 03-24-2023 End: 48-71-1369Bemhsux encounter procedureCorey Eliezer DO Work Phone: [facility] Work Phone: Start: 03-24-2023 End: 81-86-1666Wcokyete preventive med est patient 40-64yrsCorey Eliezer DO Work Phone: [facility] BCP OBComment on above:Well woman exam with routine gynecological exam; Breast cancer screening by mammogram; Postmenopausal stateStart: 03-22-2022 End: 28-98-5650nmbhsdkxjpNW RANDY ELIEZER .Facility:U4Lnclx: 12-23-2021 End: 89-68-9176iwxbvnscsaSR RANDY ELIEZER .Facility:P7Xasre: 07-16-2021 End: 26-62-8151xwmlfzttvhMQ RANDY ELIEZER .Facility:Y1Mamxz: 01-25-2018 End: 22-43-5512Rxmtpdk encounter procedureHAICorr[facility] Procedures DateProcedureProcedure DetailPerforming ClinicianStart: 55-62-9351Nblsqjtdzom Generic ProviderStart: 97-66-6274ECB,APTIMA HPV,AGE GDLNGeneric External Data ProviderStart: 93-56-1286IT TOMOSYNTHESIS SCREENING BIGeneric External Data ProviderStart: 23-89-0254ZB DEXA AXIAL SKELETONGeneric External Data Provider Start: 10-82-8006AjjmtbpmkzbBijpfrl ProviderStart: 11-14-2023H/O: hysterectomy History of hysterectomyChichi Dooley MD Work Phone: Start: 25-49-3547KHY,APTIMA HPV,AGE GDLNCorey Eliezer DO Work Phone: Start: 81-39-0640MoobfldibgnWfyat Sabbagh MD Work Phone: Plan of Treatment DateCare ActivityDetailAuthorStart: 05-04-3813Xwabjjzkf for malignant neoplasm of colonNOMS HealthcareStart: 05-06-2025 End: 59-89-8404Eagvtas encounter procedureNOKS BCP OBStart: 70-51-6242Zvdrhkmtr for malignant neoplasm of breastMammogramNOMS HealthcareStart: 10-15-2024 Influenza vaccinationInfluenza Vaccine (#1)[facility] HealthcareStart: 04-30-2024 End: 59-17-2505BO Breast - bilateral ScreeningBilateral screening mammogram Imaging Routine Breast cancer screening by mammogram Expected: 04/30/2024, Expires: 06/30/2025[facility] Work Phone: comment on above:Expected: 04/30/2024, Expires: 06/30/2025Start: 04-30-2024 End: 82-98-5613Xxxllec encounter wgebdygur29/17/2025 9:40 AM EDT Office Visit [facility] [address] [place] [address] Randy Martins, DO [address] [place] [address] [facility] OBStart: 03-29-2024 End: 18-06-2857Iruopiu encounter drstvgmar20/13/2025 9:00 AM EST Office Visit [facility] [address] [place] [phone] Randy Martins, DO [address] [place] [address] [facility] OBStart: 03-12-2024 End: 66-59-3868Bbudjvy encounter /27/2025 9:30 AM EST Office Visit [facility] [address] [place] [phone] Elaine Carmichael MD [address] [place] [address] [facility] ENDOCRINOLOGYStart: 83-30-6241Fpcucmfha for malignant neoplasm of breastMammogramNOKS HealthcareStart: 11-14-2023 End: 65-33-541495336909-Xoxhkzjevhagfaoobbj83-Crwovlpuvsvqhmmuqly Lab Routine Elevated dehydroepiandrosterone sulfate level Expected: 11/14/2023 (Approximate), Expires: 11/13/2024NO[facility] HealthcareComment on above:Expected: 11/14/2023 (Approximate), Expires: 11/13/2024Start: 11-14-2023 End: 61-19-4545YkfuauxsjljsyaiNutxtfnihtdnhhj Lab Routine Elevated dehydroepiandrosterone sulfate level Expected: 11/14/2023 (Approximate), Expires: 11/13/2024[facility] HealthcareComment on above:Expected: 11/14/2023 (Approximate), Expires: 11/13/2024Start: 11-14-2023 End: 78-69-0967Apiml metabolic 1998 panel - Serum or PlasmaBasic metabolic panel Lab Routine Elevated dehydroepiandrosterone sulfate level Expected: 11/14/2023 (Approximate), Expires: 11/13/2024[facility] Healthcare Work Phone: Comment on above:Expected: 11/14/2023 (Approximate), Expires: 11/13/2024Start: 11-14-2023 End: 88-59-6606IIWN-sulfateDHEA-sulfate Lab Routine Elevated dehydroepiandrosterone sulfate level Expected: 11/14/2023 (Approximate), Expires: 11/13/2024[facility] HealthcareComment on above:Expected: 11/14/2023 (Approximate), Expires: 11/13/2024Start: 11-14-2023 End: 25-04-8509Vlomjswrjina [Mass/volume] in Serum or PlasmaTestosterone Lab Routine Elevated dehydroepiandrosterone sulfate level Expected: 11/14/2023 (Approximate), Expires: 11/13/2024[facility] HealthcareComment on above:Expected: 11/14/2023 (Approximate), Expires: 11/13/2024Start: 11-14-2023 End: 22-28-9163Dnhaete encounter ghrrxktza36/30/2024 9:30 AM EDT Office Visit [facility] ENDO[facility] [address] [place] [phone] Elaine Carmichael MD [address] [place] [address] ArrivedNOCENTERPOINT [facility] ENDOCRINOLOGYComment on above:Arrived Start: 21-87-0399Acpivrpou vaccinationInfluenza Vaccine (#1)[facility] Start: 03-24-2023 End: 11-76-1006IYJ Skeletal system Views for bone densityDEXA bone density Imaging Routine Postmenopausal state Expected: 03/24/2023 (Approximate), Expires:03/24/2024[facility] HealthcareComment on above:Expected: 03/24/2023 (Approximate), Expires: 03/24/2024Start: 03-24-2023 End: 37-25-5142ZS Breast - bilateral ScreeningBilateral screening mammogram Imaging Routine Breast cancer screening by mammogram Expected: 03/24/2023, Expires: 05/22/2024[facility] Work Phone: comment on above:Expected: 03/24/2023, Expires: 05/22/2024Start: 31-67-4793Fvlrfmkfq for malignant neoplasm of colonNOKS HealthcareTHIN PREP TIS PAP AND HR HPV DNATHIN PREP TIS PAP AND HR HPV DNA Pathology and Cytology Routine Well woman exam with routine gynecological exam Ordered: 03/24/2023[facility] HealthcareComment on above:Ordered: 03/24/2023THIN PREP TIS PAP AND HR HPV DNATHIN PREP TIS PAP AND HR HPV DNA Pathology and Cytology Routine Well woman exam with routine gynecological exam Ordered: 04/30/2024[facility] HealthcareComment on above:Ordered: 04/30/2024 Payers DatePayer CategoryPayerPolicy [id number] County General HospitalBS Member Subscriber Plan / Payer (Effective 2021-Present) Name: Mildred Lujan Relation to Subscriber: Spouse Name: Heath Lujan Date of : 1973 [address]: [address] [place] [address] Payer ID: Not on file Type: Not on file Address: [address] [place] [id number] BCBS BCBS [id number] 2021-Present [phone] [address] [place] [id number] 2.16.840.1.1423[id number] 2.16.840.1.651203.3.57[id number] 2.16.840.1.657970.3.57[id number] 2.16.840.1.688671.3.57[id number] 2.16.840.1.359657.3.57[id number] 2..840.1.497668.3.[id number] 2.16.840.1.69317[id number] 2..840.1.246569.3.57[id number] Social History DateTypeDetailFacilityStart: 92-21-9510Ttytfsi smoking status NHISNever smoked tobaccoNOMS HealthcareStart: 75-50-4490Aeupexc use and exposureSmokeless tobacco non-userNOMS HealthcareStart: 03-24-2023 End: 85-93-7339Dwngbtv intakeCurrent drinker of alcohol (finding)[facility] Start: 07-28-2022 End: 79-06-2751Dwlmyat of Social functionNOMS HealthcareStart: 07-28-2022 End: 77-69-5598Ujrvkzk use panelNOMS HealthcareStart: 92-92-8406Wmtjwbf Comment caffeine 1-2cups/dayNOMS HealthcareStart: 89-68-2130Ciz Assigned At BirthNot on fileNOKS HealthcareStart: 40-48-1658MxwQtvsujPDDG Healthcare History of Present illness Narrative 04-30-2024 Note Date & VharDlklMhpcbvhc55-19-3236 History of Present illness Narrative* Cynthia Torres, ACTIVITY SPECIALIST - 04/30/2024 9:40 AM EDT Reason for Appointment: Patient ID: Mildred Lujan is a 53 y.o. female who presents for Well Women Visit Patient presents today for Annual Exam. MEDICATIONS Current Outpatient Medications Medication Instructions FLUoxetine (PROZAC) 20 mg, Oral, Daily loratadine (Claritin Reditabs) 5 MG tablet dispersible dissolvable tablet Take by mouth ALLERGIES Allergies Allergen Reactions Sulfa Antibiotics Unknown Sulfanilamide Other Reaction(s): Unknown PROBLEMS Active Ambulatory Problems Diagnosis Date Noted Abnormal weight gain 11/14/2023 Anogenital warts 11/14/2023 Anxiety 11/14/2023 Disorder of endocrine system 11/14/2023 Fatigue 11/14/2023 History of hysterectomy 11/14/2023 Hot flashes due to menopause 11/14/2023 Depression (CMS/HCC) 11/14/2023 Papanicolaou smear of vagina with low grade squamous intraepithelial lesion (LGSIL) 11/14/2023 Yeast infection 03/01/2024 Resolved Ambulatory Problems Diagnosis Date Noted No Resolved Ambulatory Problems Past Medical History: Diagnosis Date Allergies BMI 25.0-25.9,adult H/O abnormal cervical Papanicolaou smear H/O: hysterectomy Hormone imbalance Hot flashes LGSIL Pap smear of vagina Menstrual bleeding problem 2010 HISTORY PAST MEDICAL HISTORY SOCIAL HISTORY Past Medical History: Diagnosis Date Abnormal weight gain Allergies Anxiety BMI 25.0-25.9,adult Depression (CMS/HCC) Fatigue H/O abnormal cervical Papanicolaou smear H/O: hysterectomy Hormone imbalance Hot flashes LGSIL Pap smear of vagina Menstrual bleeding problem 2010 Social History Tobacco Use Smoking status: Never Smokeless tobacco: Never Vaping Use Vaping status: Never Used Substance Use Topics Alcohol use: Yes Alcohol/week: 10.0 standard drinks of alcohol Types: 10 Cans of beer per week Comment: caffeine 1-2cups/day Drug use: Never FAMILY HISTORY Family History Problem Relation Name Age of Onset Mental illness Mother Tegan Cancer Mother Tegan Heart disease Father Cancer Maternal Grandmother Tegan COPD Maternal Grandmother Tegan Diabetes Maternal Grandfather Reginaldo Heart disease Maternal Grandfather Reginaldo Mental illness Sibling SURGICAL HISTORY Past Surgical History: Procedure Laterality Date CHOLECYSTECTOMY 2009 DILATION AND CURETTAGE 1996 ENDOMETRIAL ABLATION 2013 HYSTERECTOMY 2015 IUD INSERTION REVIEW OF SYSTEMS Review of Systems: Review of Systems Constitutional: Negative. HENT: Negative. Eyes: Negative. Respiratory: Negative. Cardiovascular: Negative. Gastrointestinal: Negative. Genitourinary: Negative. Musculoskeletal: Negative. Skin: Negative. Neurological: Negative. All other systems reviewed and are negative. Hematological: Negative. Endocrine: Negative. Allergic/Immunologic: Negative. OBJECTIVE Objective: Physical Exam Constitutional: Appearance: Normal appearance. She is well-developed. Genitourinary: Vulva normal. Breasts: Right: Normal. Left: Normal. Cardiovascular: Rate and Rhythm: Normal rate and [...] nursing note reviewed. Exam conducted with a director nursing service present. Vitals: Estimated body mass index is 24.75 kg/m as calculated from the following: Height as of 11/14/23: 5' 7 . Weight as of this encounter: 158 lb. BP: 120/70 No LMP recorded. Patient has had a hysterectomy. ASSESSMENT & PLAN ICD-10-CM 1. Well woman exam with routine gynecological exam Z01.419 THIN PREP TIS PAP AND HR HPV DNA 2. Breast cancer screening by mammogram Z12.31 Bilateral screening mammogram Bilateral screening mammogram Annual Exam: Patient presents today for an annual exam. Patient states she is doing well and has Complaints of Hot Flashes and she would like to trail the climara patch. Pap was obtained without difficulty. Orders Placed This Encounter Procedures Bilateral screening mammogram Follow Up: Patient is to return in one year for annual unless needed otherwise. Documented by Cynthia Torres NP on behalf of: Randy Martins DO documented in this [facility] Telephone encounter Note 04-17-2024 Note Date & BxbyPczlEplcifdb87-65-9423 Telephone encounter Note* Telephone Encounter - Chichi Dooley MD - 04/17/2024 3:13 PM EST Patient was requesting an Antibiotic [facility] Note 04-17-2024 Note Date & ZsrrSkyqUghqbbml42-70-8474 Miscellaneous Notes* Telephone Encounter - Chichi Dooley MD - 04/17/2024 3:13 PM EST Patient was requesting an Antibiotic documented in this [facility] History of Present illness Narrative 11-14-2023 Note Date & QorzGqefEqgeswsp54-13-0014 History of Present illness Narrative* Elaine Carmichael MD - 11/14/2023 9:30 AM EDT Mildred Lujan is a 53 y.o. female No ref. provider found presents with chief complaint of DHEA (NEW) HPI: New patient 10/[address] Chichi Dooley for high DHEA-S lab done in August/2023 307( 24-241), progesterone 0.7, estradiol 80, total estrogens 215, total testosterone 33 ( 4- 50), free testosterone within normal limits,she has 2 kids,1 miscarriage, no thyroid problems, have partial hysterectomy with short-term of estrogen cream for less than 4 months SUBJECTIVE: MEDICATIONS: Current Outpatient Medications Medication Instructions FLUoxetine (PROZAC) 20 mg, Oral, Daily loratadine (Claritin Reditabs) 5 MG tablet dispersible dissolvable tablet Oral metFORMIN XR (Glucophage-XR) 500 MG 24 hr tablet TAKE 1 TABLET BY MOUTH EVERY DAY WITH EVENING MEAL MONOJECT 3CC SYRINGE 3 ML misc spironolactone (ALDACTONE) 50 mg, Oral, Daily ALLERGIES: Allergies Allergen Reactions Sulfa Antibiotics Unknown Sulfanilamide Other Reaction(s): Unknown Past Medical History: Diagnosis Date Abnormal weight gain Allergies Anxiety BMI 25.0-25.9,adult Depression (CMS/HCC) Fatigue H/O abnormal cervical Papanicolaou smear H/O: hysterectomy Hormone imbalance Hot flashes LGSIL Pap smear of vagina Menstrual bleeding problem 2010 Past Surgical History: Procedure Laterality Date CHOLECYSTECTOMY 2009 DILATION AND CURETTAGE 1996 ENDOMETRIAL ABLATION 2013 HYSTERECTOMY 2015 IUD INSERTION REVIEW OF SYMPTOMS: 14 POINT OF SYSTEM REVIEWED AND NEGATIVE OBJECTIVE: Visit Vitals BP 122/82 Pulse 67 Resp 16 Ht 5' 7 Wt 178 lb BMI 27.88 kg/m OB Status Hysterectomy Smoking Status Never BSA 1.95 m Physical Exam Constitutional: Appearance: Normal appearance. She is normal weight. HENT: Head: Normocephalic and atraumatic. Right Ear: External ear normal. Nose: Nose normal. Mouth/Throat: Pharynx: Oropharynx is clear. Eyes: Extraocular Movements: Extraocular movements intact. Pupils: Pupils are equal, round, and reactive to light. Cardiovascular: Rate and Rhythm: Normal rate and regular rhythm. Pulmonary: Effort: Pulmonary effort is normal. Abdominal: General: Abdomen is flat. Palpations: Abdomen is soft. Musculoskeletal: General: Normal range of motion. Skin: General: Skin is warm. Neurological: General: No focal deficit present. Mental Status: She is alert. Psychiatric: Mood and Affect: Mood normal. Behavior: Behavior normal. ASSESSMENT AND PLAN: Assessment/Plan Diagnoses and all orders for this visit: Diagnoses and all orders for this visit: Elevated dehydroepiandrosterone sulfate level Hirsutism Mild hirsutism, level mildly high I offered her to watch versus start spironolactone, she is okay to start, so I will start 50 mg once a day, and I will see her in 4 months with new lab, no need for adrenal or ovarian image at this time Follow up in about 4 months (around 03/15/2024). documented in this encounterNOKS [facility] History of Present illness Narrative 03-24-2023 Note Date & SbqoBvvbCiikzxbh21-15-0713 History of Present illness Narrative* Randy Martins, - 03/24/2023 8:30 AM EST Reason for Appointment: Patient ID: Efrain Lujan is a 52 y.o. female who [...] weight gain Allergies Anxiety BMI 25.0-25.9,adult Depression (CMS/[facility]) Fatigue H/O abnormal cervical Papanicolaou smear H/O: [...] Past Surgical History: Procedure Laterality Date CHOLECYSTECTOMY 2008 DILATION AND CURETTAGE 1996 ENDOMETRIAL ABLATION 2013 HYSTERECTOMY 2015 IUD INSERTION [...] nursing note reviewed. Exam conducted with a director nursing service present. Vitals: Estimated body mass index is 27.06 kg/m as calculated from the following: Height as of 23: 5' 7 . Weight as of this [...] by Zenia Joshua LPN on behalf of: Randy Martins DO [facility] Evaluation note Note Date & TypeNoteFacilityEvaluation note* Diagnosis Well woman exam with routine gynecological exam Routine gynecological examination Breast cancer screening by mammogram Postmenopausal state Asymptomatic postmenopausal status (age-related) (natural) documented in this encounter [facility] Evaluation note Note Date & TypeNoteFacilityEvaluation note* Diagnosis Elevated dehydroepiandrosterone sulfate level- Primary Hirsutism documented in this encounter [facility] Evaluation note Note Date & TypeNoteFacilityEvaluation note* Diagnosis Acute bronchitis, unspecified organism- Primary documented in this encounter [facility] Evaluation note Note Date & TypeNoteFacilityEvaluation note* Diagnosis Menopausal vasomotor syndrome- Primary Well woman exam with routine gynecological exam Routine gynecological examination Breast cancer screening by mammogram documented in this encounter [facility] Summary [...] section and content) DATE CREATED AUTHOR 01/28/2018 [facility] DATE CREATED AUTHOR AUTHOR'S ORGANIZ ATION 03/07/2019 [facility] DATE CREATED AUTHOR AUTHOR'S ORGANIZ ATION 05/04/2022 [facility] DATE CREATED AUTHOR AUTHOR'S ORGANIZ ATION 05/01/2024 [facility] EPIC DATE CREATED AUTHOR AUTHOR'S HANNAH ATION 06/06/2024 [facility] Reason for Visit (unrecogniz ed section and content) ReasonCommentsWell Women VisitReasonCommentsDHEANEW Care Teams (unrecognized sec tion and content) Team MemberRelationshipSpecialtyStart DateEnd Date Unallocated, [facility] Provider [address] [place] [address] PCP - Immaiwy13/26/23Team MemberRelationshipSpecialtyStart DateEnd Date Unallocated, [facility] [address] [place] [address] PCP - Wytcvms72/26/23Te MemberRelationshipSpecialtyStart DateEnd Date Chichi Dooley MD [address] [place] [address] PCP - [facility]09/30/23Te MemberRelationshipSpecialtyStart DateEnd Date Chichi Dooley MD [address] [place] [address] PCP - [facility]09/30/23Te MemberRelationshipSpecialtyStart DateEnd Date Cynthia Torres NP [address] [place] [address] [place] [address] PCP - [facility]06/14/24 FOR RECORDS PERTAINING TO PATIENTS WHO ARE [...] BE BASED ON THE PRIMARY CLINICAL RECORDS. [facility]. provides no warranty or guarantee of the accuracy or completeness of information in this document.
== END 2025-01-04 07:27 | disposition home or self-care (01) ==
LOC: MAMMO 07:26
PROVIDERS: PCP Family Medicine; Visit Provider Obstetrics & Gynecology
DX: Z12.31 Encounter for screening mammogram for malignant neoplasm of breast (principal)
CPT/HCPCS: 77063; 77067